=== PATIENT | female | born 1950 | race Hispanic/Latino ===

== ENCOUNTER 2016-10-18 19:16 | Inpatient (IN) | payer MEDICARE ==
[2016-10-18 19:59] VITALS: BMI 40.8
[2016-10-18] MEDS ORDERED: Albuterol-Ipratrop 3 mg / 0.5 (3 ml) UD IH STA (20:25)
--- NOTE | 2016-10-18 20:51 | ED PDOC ---
Arrival/HPI - General Historian: Patient <Yifan Shepherd - Last Filed: 10/18/16 22:30> <Patric Galeas - Last Filed: 10/18/16 23:29> - General Chief Complaint: Shortness Of Breath Time Seen by Provider: 10/18/16 19:49 - History of Present Illness Narrative History of Present Illness (Text): 10/18/16 20:52 This is a 65 year old female with a PMH notable for Afib, COPD, CHF, DM, CAD s/ p CABG, [place], HTN, HLD, and Anxiety presenting to the ED for acute worsening of chronic shortness of breath. The patient states that she has become more short of breath over the past month. The patient states that she cannot preform her ADLs without becoming short of breath. The patient notes that she has become progressively less active recently. The patiet also states that she has been taking nitroglycerine daily for the past week for her shortness of breath and chest heaviness. The patients reports her chest heaviness as intermittent, but relieved with nitro. The patient has a known history of CAD and is s/p CABG. Recent cardiac catheterization showes occlusion of her transplanted vessels and impaired EF. The patient also has a history of A-Fib. She did not take her evening dose of coumadin today. The patient denies fever, chills, headahce, chest pain, palpitations, cough, sputum production, abdominal pain, N/V/D/C, changes in bowel/bladder, and extremity paresthesias. PMHx: Afib COPD CHF DM CAD s/p CABG [place] HTN HLD Anxiety Surg: CABG (6yes ago) Allergies: Codeine Fam Hx: unable to obtain Soc Hx: history of tobacco use; unknown etoh/drug history PMD: Dr. Flores / Dr. Yee Cardio: Dr. Harper / Dr. Santana Pulm: Dr. Valle (Yifan Shepherd) Past Medical History - Provider Review Nursing Documentation Reviewed: Yes - Travel History Have you recently traveled outside [place] w/in the past 3 mons?: No - Infectious Disease Hx of Infectious Diseases: None - Tetanus Immunization Tetanus Immunization: Up to Date - Cardiac Hx Cardiac Disorders: Yes Hx Congestive Heart Failure: Yes Hx Hypertension: Yes - Pulmonary Hx Chronic Obstructive Pulmonary Disease (COPD): Yes - Neurological Hx Neurological Disorder: No Other/Comment: neuropathy ble numbness pins and needles - HEENT Hx HEENT Disorder: No - Renal Hx Renal Disorder: No - Endocrine/Metabolic Hx Diabetes Mellitus Type 2: Yes - Hematological/Oncological Hx Blood Disorders: No - Integumentary Hx Dermatological Disorder: No - Musculoskeletal/Rheumatological Hx Falls: No - Gastrointestinal Hx Gastrointestinal Disorders: No - Genitourinary/Gynecological Hx Genitourinary Disorders: No - Psychiatric Hx Depression: Yes Hx Emotional Abuse: No Hx Physical Abuse: No Hx Substance Use: No - Surgical History Hx Cardiac Catheterization: Yes Hx Open Heart Surgery: Yes Other/Comment: c section x1 - Anesthesia Hx Anesthesia: No - Suicidal Assessment Feels Threatened In Home Enviroment: No <Yifan Shepherd - Last Filed: 10/18/16 22:30> <Patric Galeas - Last Filed: 10/18/16 23:29> - Patient History Narrative Patient History: This is a 65 year old female with a PMH notable for Afib, COPD, CHF, DM, CAD s/ p CABG, [place], HTN, HLD, and Anxiety (iYfan Shepherd) Family/Social History - Physician Review Nursing Documentation Reviewed: Yes Family/Social History: No Known Family HX Smoking Status: Heavy Smoker > 10 Cigarettes Daily Hx Alcohol Use: No Hx Substance Use: No <Yifan Shepherd - Last Filed: 10/18/16 22:30> Allergies/Home Meds <Yifan Shepherd - Last Filed: 10/18/16 22:30> <Patric Galeas - Last Filed: 10/18/16 23:29> Allergies/Adverse Reactions: Allergies codeine Adverse Reaction (Verified 02/22/16 14:48) VOMITING Home Medications: Home Meds Medication Instructions Recorded Confirmed Aspirin 81 mg PO DAILY 12/07/13 02/22/16 Atorvastatin [Lipitor] 40 mg PO DIN 12/07/13 02/22/16 Carvedilol [Coreg] 25 mg PO BID 12/07/13 02/22/16 Fenofibric Acid (Choline) 135 mg PO DIN 12/07/13 02/22/16 [Trilipix] LORazepam [Ativan] 0.5 mg PO DAILY PRN 12/07/13 02/22/16 Metformin HCl [Metformin] 1,000 mg PO BID 12/07/13 02/22/16 Ascorbic Acid [Vitamin C] 500 mg PO DAILY 02/22/16 02/22/16 Budisemide 0 inh NEB BID 02/22/16 02/22/16 Cholecalciferol (Vitamin D3) 500 unit PO DAILY 02/22/16 02/22/16 [Vitamin D3] Furosemide [Lasix] 40 mg PO DAILY 02/22/16 02/22/16 Insulin Aspart, Recombinant 30 unit SC AC 02/22/16 02/22/16 [Novolog] Insulin Detemir [Levemir] 56 unit SC HS 02/22/16 02/22/16 Multivit-Min/FA/Lycopen/Lutein 1 each PO DAILY 02/22/16 02/22/16 [Centrum Silver Tablet] [place]-3/Dha/Epa/Fish Oil [Fish Oil] 4,000 gm PO BID 02/22/16 02/22/16 Potassium Chloride [Klor-Con M20] 20 meq PO DAILY 02/22/16 02/22/16 Proformist 0 inh NEB BID 02/22/16 02/22/16 Tiotropium Comfrey Inhaler 2 puff INH BID 02/22/16 02/22/16 [Spiriva Inhalation Handihaler Device] Tiotropium [Spiriva] 2 puff INH DAILY 02/22/16 02/22/16 Warfarin [Coumadin] 5 mg PO MWF 02/22/16 02/22/16 Warfarin [Coumadin] 7.5 mg PO TTS 02/22/16 02/22/16 Review of Systems - Physician Review All systems were reviewed & negative as marked: Yes - Review of Systems Constitutional: Fatigue. absent: Fevers Eyes: absent: Vision Changes, Photophobia ENT: absent: Hearing Changes, Tinnitus Respiratory: SOB. absent: Cough, Sputum, Wheezing Cardiovascular: absent: Chest Pain, Palpitations, Calf Pain, Orthopnea, Syncope Gastrointestinal: absent: Abdominal Pain, Stool Changes, Constipation, Diarrhea , Nausea, Vomiting Genitourinary Female: absent: Dysuria, Frequency Musculoskeletal: absent: Arthralgias, Back Pain Skin: absent: Rash, Pruritis Neurological: absent: Headache, Dizziness Endocrine: absent: Diaphoresis Hemo/Lymphatic: Easy Bleeding (patient on coumadin ). absent: Adenopathy Psychiatric: Anxiety. absent: Depression, Suicidal Ideation <Yifan Shepherd - Last Filed: 10/18/16 22:30> Physical Exam Temperature: Afebrile Blood Pressure: Hypertensive Pulse: Regular Respiratory Rate: Normal Appearance: Positive for: Well-Appearing, Ill-Appearing (chronically ill) Pain Distress: None Mental Status: Positive for: Alert and Oriented X 3 - Systems Exam Head: Present: Atraumatic, Normocephalic Pupils: Present: PERRL. No: Pinpoint Extroacular Muscles: Present: EOMI. No: Entrapment Conjunctiva: Present: Normal. No: Icteric Mouth: Present: Moist Mucous Membranes. No: Drooling Neck: Present: Normal Range of Motion. No: Lymphadenopathy Respiratory/Chest: Present: Clear to Auscultation. No: Good Air Exchange (poor air entry ), Respiratory Distress, Accessory Muscle Use Cardiovascular: Present: Normal S1, S2, Irregular Rhythm, Peripheal Pulses Present. No: Regular Rate and Rhythm, Murmurs Abdomen: Present: Normal Bowel Sounds. No: Tenderness, Distention, Peritoneal Signs, Rebound, Guarding Back: Present: Normal Inspection. No: CVA Tenderness, Midline Tenderness Upper Extremity: Present: Normal Inspection, Neurovascularly Intact. No: Cyanosis, Edema Lower Extremity: Present: Normal Inspection, Edema. No: Deformity Neurological: Present: GCS=15, CN II-XII Intact Skin: Present: Warm, Dry, Normal Color. No: Rashes Psychiatric: Present: Alert, Oriented x 3 <Stephanie Shepherds - Last Filed: 10/18/16 22:30> Vital Signs Temp Pulse Resp BP Pulse Ox 10/18/16 19:59 98.1 F 78 20 157/72 H 97 Medical Decision Making Re-evaluation Time: 22:30 Reassessment Condition: Re-examined - Lab Interpretations Interpretation: Abnormal lab values (supratherapeutic INR, elevated BNP) - RAD Interpretation Software Security Architect: ED Physician - EKG Interpretation Interpreted by ED Physician: Yes Type: 12 lead EKG Comparison: Com.w/previous EKG <Yifan Shepherd - Last Filed: 10/18/16 22:30> - Lab Interpretations I have reviewed the lab results: Yes - RAD Interpretation Software Security Architect: ED Physician - EKG Interpretation Interpreted by ED Physician: Yes Type: 12 lead EKG <Gudelia,Patric - Last Filed: 10/18/16 23:29> ED Course and Treatment: 10/18/16 21:13 Impression: This is a 65 year old female with a PMH notable for Afib, COPD, CHF, DM, CAD s/ p CABG, [place], HTN, HLD, and Anxiety presenting to the ED for acute worsening of chronic shortness of breath. The patient appears chronically ill and short of breath. The patient is sating well on 2L nasal cannula. Differential: [place] COPD Exacerbation CHF Exacerbation Plan: CXR EKG CBC, CMP, BNP, Cardiac ISO, TSH, Phos, Mag, PT, PTT Lasix 40mg IV Prior Visits: 02/23/16- Chest pain. MANUFACTURING ENGINEER MACHINING called, patient intubated for hypercarbic narcosis, management in ICU 12/07/13- CHF Progress Note: Patient seen and examined at the bedside the patient appears in no acute distress. The patient is prepared for admission having brought a suitcase of belongings. The patient has poor gas exchange likely 2/2 to chronic COPD. The patient will be given a dose of lasix 40mg IV since she did not take her dose this AM. The patient was also seen to be hypertensive 164/106. We will recheck the BP following the administration of Lasix. Lab and imaging studies pending. 10/18/16 22:30 Patient re-examined. No interval change from previous examination. Patient sating well on nasal cannula O2. Hospitalist team has accepted admission. Patient will be admitted to telemetry floor. (Yifan Shepherd) Impression: Pt seen and evaluated with medical records supervisor. Pt, whose past medical history includes atrial fibrillation, COPD, CHF, diabetes, CAD s/p CABG, [place], hypertension, hyperlipidemia, and anxiety, presented for shortness of breath and intermittent chest heaviness. Aware and agree with HPI, clinical findings, plan, and management. Plan: -- EKG -- Chest X-ray -- Labs, cardiac enzymes, digoxin level, TSH -- Duoneb -- Lasix -- Reassess and disposition 10/18/16 22:00 Case discussed with medical records supervisor strategy consultant, who is aware and verbalizes understanding. 10/18/16 22:[address] Rincon, who is aware and agrees with plan. Accepts pt in to hospital service. Pt will go to Telemetry observation for chest pain. Pt is no acute distress. Discussed results and hospital observation with pt, who is aware and verbalizes understanding. (Patric Galeas) - Lab Interpretations Lab Results: 10/18/16 21:20 10/18/16 21:20 Lab Results 10/18/16 21:20: WBC 7.5 D, RBC 4.31, Hgb 14.4, Hct 40.6, MCV 94.2, MCH 33.4, MCHC 35.5, RDW 13.3, Plt Count 177, MPV 9.5, Gran % 61.7, Lymph % (Auto) 27.2, Ripley % (Auto) 7.7 H, Eos % (Auto) 2.9, Baso % (Auto) 0.5, Gran # 4.61, Lymph # 2.0, Ripley # 0.6, Eos # 0.2, Baso # 0.04, PT 44.2 H*, INR 4.09 H*, APTT 38.0 H, Sodium 136, Potassium 4.0, Chloride 96 L, Carbon Dioxide 34 H, Anion Gap 10, BUN 30 H, Creatinine 0.9, Est GFR ( Amer) > 60, Est GFR (Non-Af Amer) > 60, Random Glucose 54 L, Calcium 9.6, Magnesium 2.2, Total Bilirubin 0.6, AST 27 , ALT 37, Alkaline Phosphatase 76, Lactate Dehydrogenase 527, Total Creatine Kinase 59, Troponin I < 0.01 D, NT-Pro-B Natriuret Pep 1610 H, Total Protein 6.6, Albumin 3.8, Globulin 2.8, Albumin/Globulin Ratio 1.4, TSH 3rd Generation 1.84, Digoxin 0.8 - RAD Interpretation Narrative RAD Interpretations (Text): 10/18/16 21:49 CXR shows chronic COPD changes. No acute pulmonary pathology (Yifan Shepherd) Radiology Orders: 10/18/16 20:25 CHEST PORTABLE [RAD] Stat - EKG Interpretation EKG Interpretation (Text): 10/18/16 20:49 A-fib, ST & T wave changes in lateral leads, septal infarct age undetermined Comparison- a-fib, inferolateral ischemia, old septal [place] (Yifan Shepherd) - Medication Orders Current Medication Orders: Discontinued Medications Albuterol/Ipratropium (Christianoneb 3 Mg/0.5 Mg (3 Ml) Ud) 3 ml IH STAT STA Stop: 10/18/16 20:26 Furosemide (Lasix) 40 mg IVP STAT STA Stop: 10/18/16 20:32 - PA / HUMAN RESOURCES EXECUTIVE ASSISTANT / Resident Statement / has reviewed & agrees with the documentation as recorded. / has examined the patient and agrees with the treatment plan. <Patric Galeas - Last Filed: 10/18/16 23:29> Disposition/Present on Arrival - Present on Arrival Any Indicators Present on Arrival: No History of DVT/PE: No History of Uncontrolled Diabetes: No Urinary Catheter: No History of Decub. Ulcer: No History Surgical Site Infection Following: None - Disposition Have Diagnosis and Disposition been Completed?: Yes Disposition Time: 19:00 Patient Plan: Admission <Yifan Shepherd - Last Filed: 10/18/16 22:30> <Patric Galeas - Last Filed: 10/18/16 23:29> - Disposition Diagnosis: Shortness of breath, COPD exacerbation Disposition: HOSPITALIZED Patient Problems: Current Active Problems Problem Status Diagnosed COPD exacerbation Acute Chest pain Acute Prophylactic measure Acute Shortness of breath Acute Condition: FAIR
[2016-10-18 21:35] LABS: ADD MANUAL DIFF? NO
[2016-10-18 21:41] LABS: BASO # 0.04 [, K/mm3] (0.0-2.0); BASO % 0.5 % (0.0-3.0); EOS # 0.2 (0.0-0.7); EOS % 2.9 % (1.5-5.0); GRAN # 4.61 (1.4-6.5); GRAN % 61.7 % (50.0-68.0); HEMATOCRIT 40.6 % (36.0-48.0); LYMPH % 27.2 % (22.0-35.0); MEAN CELL VOLUME 94.2 fL (80.0-105.0); MEAN CORPUSCULAR HEMOGLOBIN 33.4 pg (25.0-35.0); MEAN CORPUSCULAR HGB CONC 35.5 g/dl (31.0-37.0); MEAN PLATELET VOLUME 9.5 fl (7.0-11.0); MONO # 0.6 (0.1-0.6); MONO % 7.7 % (1.0-6.0); PLATELET COUNT 177 [, 10^3/uL] (120.0-450.0); RED CELL DISTRIBUTION WIDTH 13.3 % (11.5-14.5); WHITE BLOOD COUNT 7.5 [, 10^3/ul] (4.5-11.0)
[2016-10-18 21:57] LABS: ALB/GLOB RATIO 1.4 (1.1-1.8); ALKALINE PHOSPHATASE 76 U/L (38-133); ALT/SGPT 37 U/L (7-56); AST/SGOT 27 U/L (15-39); BILIRUBIN,TOTAL 0.6 mg/dL (0.2-1.3); BLOOD UREA NITROGEN 30 mg/dL (7-21); CALCIUM 9.6 mg/dL (8.4-10.5); CARBON DIOXIDE 34 mmol/L (21-33); CHLORIDE 96 mmol/L (98-107); GFR AFRICAN-AMERICAN > 60; GLUCOSE,RANDOM 54 mg/dL (70-110); MAGNESIUM 2.2 mg/dL (1.7-2.2); SODIUM 136 mmol/L (132-148); TOTAL PROTEIN 6.6 g/dL (5.8-8.3)
[2016-10-18 21:59] LABS: INR 4.09 (0.93-1.08)
[2016-10-18 22:11] LABS: TROPONIN I < 0.01 ng/mL
[2016-10-19] MEDS ORDERED: Albuterol-Ipratrop 3 mg / 0.5 (3 ml) UD IH PRN (00:39)
[2016-10-19] MEDS ORDERED: Dextrose 50% SYRINGE Inj (50 ml) IVP STA (00:47)
[2016-10-19] MEDS: Albuterol-Ipratrop 3 mg / 0.5 (3 ml) UD IH SCH ×6 (01:16→19:34)
--- NOTE | 2016-10-19 06:21 | CP.PCM.HP ---
<LazarusTushar craft - Last Filed: 10/19/16 06:55> History of Present Illness - History of Present Illness History of Present Illness: CC: Shortness of breath HPI: This is a 65 yo F with PMH of Afib, COPD, CHF, DM, CAD s/p CABG, [place], HTN, HLD, and Anxiety for acute worsening of shortness of breath. Per patient, she is chronically short of breath, but over the last month, has become more so, to the point that she cannot perform ADLs without becoming short of breath. She also reports recent concurrent chest tightness/heaviness with the shortness of breath beginning 3-4 days prior. The shortness of breath is only mildly improved with her normal COPD regimen, but both the chest tightness and shortness of breath improved (but did not resolve) with use of Nitro. She had a recent cardiac cath that was notable for occlusion of her transplanted vessels and impaired EF. Denies fever/chills, headache, pain with breathing, chest pain, palpitations, dry/productive cough, abdominal pain, nausea/emesis, diarrhea/constipation, hematuria/dysuria, or focal weakness. PMH: as above PSH: CABG (6 yrs prior) FHx: Cardiac disease (Mother) SHx: active tobacco use (currently 4-6 cigarettes, for 4 years; previously 1- 2ppd for >20 years), denies alcohol/illicits PMD: Dr. Yee Present on Admission - Present on Admission Any Indicators Present on Admission: No History of DVT/PE: No History of Uncontrolled Diabetes: No Urinary Catheter: No Review of Systems - Constitutional Constitutional: Fatigue. absent: Chills, Fever - EENT Eyes: absent: Blurred Vision, Change in Vision, Loss of Vision Ears: absent: Dizziness Nose/Mouth/Throat: absent: Sore Throat, Neck Pain - Cardiovascular Cardiovascular: Dyspnea, Dyspnea on Exertion (baseline short of breath, worse with exertion), Other (chest tightness/heaviness (adamant it isn't chest pain)) . absent: Chest Pain, Pain Radiating to Arm/Neck/Jaw, Lightheadedness, Palpitations, Syncope - Respiratory Respiratory: Dyspnea, Dyspnea on Exertion (baseline short of breath, worse with exertion). absent: Cough, Hemoptysis, Wheezing, Pain on Inspiration, Excessive Mucous Production - Gastrointestinal Gastrointestinal: absent: Abdominal Pain, Constipation, Diarrhea, Nausea, Vomiting - Genitourinary Genitourinary: absent: Difficulty Urinating, Dysuria, Flank Pain, Hematuria - Musculoskeletal Musculoskeletal: absent: Back Pain, Muscle Weakness, Numbness, Radiating Pain into Limb - Integumentary Integumentary: absent: Pruritus, Rash - Neurological Neurological: absent: Dizziness, Numbness, Focal Weakness, Headaches, Loss of Vision, Syncope, Weakness, Other Visual Disturbances - Psychiatric Psychiatric: Anxiety. absent: Depression - Endocrine Endocrine: absent: Fatigue, Palpitations - Hematologic/Lymphatic Hematologic: Easy Bleeding (on coumadin) Past Patient History - Infectious Disease Hx of Infectious Diseases: None - Tetanus Immunizations Tetanus Immunization: Up to Date - Past Social History Smoking Status: Light Smoker < 10 Cigarettes Daily - CARDIAC Hx Cardiac Disorders: Yes Hx Angina: No Hx Cardia Arrhythmia: Yes (A Fib) Hx Circulatory Problems: No Hx Congestive Heart Failure: Yes Hx Heart Murmur: No Hx Heart Transplant: No Hx Hypercholesterolemia: Yes Hx Hypertension: Yes Hx Internal Defibrillator: No Hx Mitral Valve Prolapse: No Hx Pacemaker: No Hx Peripheral Edema: Yes Hx Peripheral Vascular Disease: No - PULMONARY Hx Respiratory Disorders: Yes (Pleurisy) Hx Asthma: No Hx Bronchitis: No Hx Chronic Obstructive Pulmonary Disease (COPD): Yes Hx Emphysema: No Hx Pneumonia: Yes Hx Respiratory Aspiration: No Hx Respiratory Tract Infection: No Hx Sleep Apnea: No Hx Tuberculosis: No - NEUROLOGICAL Hx Neurological Disorder: Yes (sciatica,neuropathey both feet) Hx Alzheimer's Disease: No HX Cerebrovascular Accident: No Hx Dementia: No Hx Dizziness: No Hx Meningitis: No Hx Migraine: No Hx Parkinson's Disease: No Hx Seizures: No Hx Transient Ischemic Attacks (TIA): No - HEENT Hx HEENT Problems: No Hx Blind: No Hx Cataracts: No Hx Deafness: No Hx Difficulty Chewing: No Hx Epistaxis: No Hx Glaucoma: No Hx Macular Degeneration: No - RENAL Hx Chronic Kidney Disease: No Hx Dialysis: No Hx Kidney Stones: No Hx Neurogenic Bladder: No Hx Pyelonephritis: No Hx Renal (Kidney) Cancer: No Hx Renal Failure: No - ENDOCRINE/METABOLIC Hx Endocrine Disorders: Yes Hx Adrenal Cancer: No Hx Diabetes Insipidus: No Hx Diabetes Mellitus Type 1: No Hx Diabetes Mellitus Type 2: Yes Hx Hyperthyroidism: No Hx Hypothyroidism: No Hx Systemic Lupus Erythematosus: No - HEMATOLOGICAL/ONCOLOGICAL Hx Blood Disorders: No Hx AIDS: No Hx Anemia: No Hx Cancer: No Hx Chemotherapy: No Hx Cirrhosis: No Hx Hemophilia: No Hx Hepatitis A: No Hx Hepatitis B: No Hx Hepatitis C: No Hx Human Immunodeficiency Virus (HIV): No Hx Metastesis: No Hx Shingles: No Hx Sickle Cell Disease: No Hx Unexplained Bleeding: No - INTEGUMENTARY Hx Dermatological Problems: No Hx Basil Cell: No Hx Eczema: No Hx Melanoma: No Hx Psoriasis: No Hx Squamous Cell: No - MUSCULOSKELETAL/RHEUMATOLOGICAL Hx Musculoskeletal Disorders: Yes (herniated disc) Hx Arthritis: No Hx Back Pain: No Hx Degenerative Joint Disease: No Hx Falls: No Hx Fractures: No Hx Gout: No Hx Herniated Disk: No Hx Myasthenia Gravis: No Hx Osteoarthritis: No Hx Osteomyelitis: No Hx Rhabdomyolysis: No Hx Spinal Stenosis: No Hx Unsteady Gait: No - GASTROINTESTINAL Hx Gastrointestinal Disorders: No Hx Colostomy: No Hx Crohn's Disease: No Hx Diverticulitis: No Hx Gall Bladder Disease: No Hx Gastroesophageal Reflux: No Hx Ileostomy: No Hx Liver Failure: No Hx Pancreatitis: No HX Swallowing Problems: No Hx Ulcer: No - GENITOURINARY/GYNECOLOGICAL Hx Genitourinary Disorders: No Hx Hematuria: No Hx Incontinence: No Hx Sexually Transmitted Disorders: No Hx Urinary Tract Infection: No - PSYCHIATRIC Hx Psychophysiologic Disorder: Yes Hx Anxiety: Yes Hx Bipolar Disorder: No Hx Depression: Yes Hx Emotional Abuse: No Hx Hallucinations: No Hx Panic Symptoms: Yes Hx Paranoia: No Hx Post Traumatic Stress Disorder: No Hx Psychosis: No Hx Physical Abuse: No Hx Schizophrenia: No Hx Sexual Abuse: No Hx Substance Use: No - SURGICAL HISTORY Hx Surgeries: Yes Hx Amputation: No Hx Appendectomy: No Hx Cardiac Catheterization: Yes Hx Cholecystectomy: No Hx Coronary Stent: Yes Hx Gastric Bypass Surgery: No Hx Hysterectomy: No Hx Joint Replacement: No Hx Kidney Transplant: No Hx Liver Transplant: No Hx Mastectomy: No Hx Musculoskeletal Surgery: No Hx Open Heart Surgery: Yes (CABG) Hx Orthopedic Surgery: No Hx Splenectomy: No Hx Valve Replacement: No - ANESTHESIA Hx Anesthesia: No Meds Allergies/Adverse Reactions: Allergies Allergy/AdvReac Type Severity Reaction Status Date / Time codeine AdvReac VOMITING Verified 02/22/16 14:48 Physical Exam - Constitutional Appears: Well, Non-toxic, No Acute Distress - Head Exam Head Exam: ATRAUMATIC, NORMAL INSPECTION, NORMOCEPHALIC - Eye Exam Eye Exam: EOMI, Normal appearance. absent: Conjunctival injection, Scleral icterus Pupil Exam: absent: Irregular, Unequal - ENT Exam ENT Exam: Mucous Membranes Moist - Respiratory Exam Respiratory Exam: Decreased Breath Sounds (in all ricks), NORMAL BREATHING PATTERN. absent: Accessory Muscle Use, Chest Wall Tenderness, Clear to Auscultation Bilateral, Rales, Rhonchi, Wheezes - Cardiovascular Exam Cardiovascular Exam: REGULAR RHYTHM, RRR, +S1, +S2. absent: Bradycardia, Tachycardia, Irregular Rhythm, +S4 - GI/Abdominal Exam GI & Abdominal Exam: Normal Bowel Sounds, Soft. absent: Diminished Bowel Sounds , Distended, Firm, Hyperactive Bowel Sounds, Hypoactive Bowel Sounds, Rigid, Tenderness Additional comments: obese, but not distended - Rectal Exam Rectal Exam: Deferred - Extremities Exam Extremities exam: Positive for: pedal edema (+1-2 pitting edema bilaterally). Negative for: calf tenderness, normal capillary refill, tenderness, pedal pulses present (unable to palpate bilateral LE pulses) - Neurological Exam Neurological exam: Alert, Oriented x3 - Psychiatric Exam Psychiatric exam: Anxious, Normal Affect - Skin Skin Exam: Dry, Intact, Normal Color, Warm Results - Vital Signs Recent Vital Signs: Last Vital Signs Temp 98.3 F 10/19/16 04:55 Pulse 60 10/19/16 04:55 Resp 19 10/19/16 04:55 BP 120/53 L 10/19/16 04:55 Pulse Ox 97 10/19/16 01:30 - Labs Result Diagrams: 10/18/16 21:20 10/18/16 21:20 Assessment & Plan - Assessment and Plan (Free Text) Assessment: This is a 65 yo F with PMH of Afib, COPD, CHF, DM, CAD s/p CABG, [place], HTN, HLD, and Anxiety for acute worsening of shortness of breath. She is being admitted for COPD exacerbation vs CHF exacerbation. Plan: This is a 65 yo F with PMH of Afib, COPD, CHF, DM, CAD s/p CABG, [place], HTN, HLD, and Anxiety for acute worsening of shortness of breath. 1) Shortness of breath -COPD exacerbation vs CHF exacerbation vs ACS, unlikely PE -Supratherapeutic on Coumadin, INR > 4, so unlikely PE -Active smoker -Coreg 25mg PO BID -Will hold home Lasix in favor of IV Lasix, increased frequency to q12 -Nitro sublinquial PRN -ASA 81mg daily -Duonebs q4 all and q2 prn -trop x1 negative, trending q8 -Solumedrol 60mg IV q12 -Cardio consulted, appreciate any recs 2) AFib -continue coreg -holding home warfarin as supratherapeutic INR> 4 -no active bleed, so no need for Vit K/FFP 3) DM -Sliding scale Lispro-Low -Accuchecks ACHS 4) CAD s/p CABG -continue coreg, ASA -Cardio consulted, apprecaite all recs Dispo: Tele Obs, pending Cardio's input, Breathing tx and diuresis FEN: Heart-healthy consistent carb diet Access: Peripheral IV Consults: Cardio Ppx: Protonix for GI, Covered for DVT with supratherapeutic INR Patient seen, reviewed, discussed with attending, Dr. Rincon. - Date & Time Date: 10/19/16 Time: 06:58 Decision To Admit - Pt Status Changed To: Hospital Disposition Of: Observation - . Bed Request Type: Telemetry <Mckenzie MAURICE,Dmitriy - Last Filed: 10/25/16 01:22> Results - Vital Signs Recent Vital Signs: Last Vital Signs Temp 97.5 F L 10/21/16 12:00 Pulse 77 10/21/16 12:00 Resp 18 10/21/16 12:00 BP 140/85 10/21/16 12:00 Pulse Ox 96 10/20/16 06:00 - Labs Result Diagrams: 10/21/16 07:35 10/21/16 06:15 Attending/Attestation - Attestation I have personally seen and examined this patient.: Yes I have fully participated in the care of the patient.: Yes I have reviewed all pertinent clinical information: Yes Notes (Text): 10/25/16 01:19 -I agree with the above H&P completed by the resident physician. Briefly, the patient is a 65 year old woman with a history of paroxysmal A-fib, COPD, CHF, DM, CAD (s/p CABG), HTN, HLD, and anxiety disorder, admitted to tele for SOB likely due to to acute COPD exacerbation and/or acute CHF exacerbation. Breathing treatments, diuresis and supplemental O2 used for treatment. Hold home Warfarin dose given supratherapeutic INR on ED labs.
[2016-10-19 06:33] VITALS: O2SAT 96
[2016-10-19 07:12] LABS: ALB/GLOB RATIO 1.3 (1.1-1.8); ALKALINE PHOSPHATASE 85 U/L (38-133); ALT/SGPT 37 U/L (7-56); AST/SGOT 30 U/L (15-39); BILIRUBIN,TOTAL 0.8 mg/dL (0.2-1.3); BLOOD UREA NITROGEN 28 mg/dL (7-21); CALCIUM 9.6 mg/dL (8.4-10.5); CARBON DIOXIDE 32 mmol/L (21-33); CHLORIDE 97 mmol/L (98-107); CHOLESTEROL 208 mg/dL (130-200); GFR AFRICAN-AMERICAN > 60; GLUCOSE,RANDOM 156 mg/dL (70-110); MAGNESIUM 2.1 mg/dL (1.7-2.2); PHOSPHOROUS 4.2 mg/dL (2.5-4.5); POTASSIUM 4.7 mmol/L (3.6-5.0); SODIUM 139 mmol/L (132-148); TOTAL PROTEIN 7.6 g/dL (5.8-8.3)
[2016-10-19 07:18] LABS: INR 2.97 (0.93-1.08)
[2016-10-19 07:33] LABS: TROPONIN I < 0.01 ng/mL
[2016-10-19] MEDS: Insulin Lispro (humaLOG) LOW Coverage SC SCH ×4 (08:10→23:07)
[2016-10-19] MEDS: Pantoprazole 40 mg EC Tab PO SCH ×2 (08:11→08:12)
--- NOTE | 2016-10-19 08:41 | RAD ---
HISTORY: SOB COMPARISON: Comparison is made to the previous study dated 02/24/2016 FINDINGS: LUNGS: Mild pulmonary vascular congestion. PLEURA: No significant pleural effusion identified, no pneumothorax apparent. CARDIOVASCULAR: Cardiomegaly. OSSEOUS STRUCTURES: No significant abnormalities. VISUALIZED UPPER ABDOMEN: Normal. OTHER FINDINGS: None. IMPRESSION: And mild pulmonary vascular congestion.
[2016-10-19] MEDS: diltiaZEM 120 mg/24 Hours CD Cap PO SCH (09:50)
[2016-10-19] MEDS: MethylPREDNISolone 40 mg Vial IV SCH ×2 (09:51→23:07)
--- NOTE | 2016-10-19 11:24 | CON ---
DATE: 10/19/2016 REASON FOR CONSULTATION: Chronic obstructive pulmonary disease. REFERRING PHYSICIAN: Dr. Johnson. HISTORY OF PRESENT ILLNESS: The patient is a 65-year-old female with past medical history significant for chronic obstructive pulmonary disease, positive extensive smoking history -- still smokes, atrial fibrillation, congestive heart failure, diabetes mellitus, coronary artery disease, status post open heart surgery, hypertension, hyperlipidemia, anxiety, who presents to [facility] with worsening dyspnea on exertion and cough over the past week. The patient is not short of breath at rest. She also denies significant sputum production. The patient denies chest pain, coughing up of blood or chest pain -- made worse with deep respirations. However, the patient does state to chest "pressure" over the past 4-5 days. There is no history of temperatures, chills or infectious exposure. There is no history of night sweats, weight loss or appetite change prior to the above events. No history of leg or calf pains. No history of syncope or diaphoresis. No history of recent travel or trauma. REVIEW OF SYSTEMS: No history of nausea, vomiting or diarrhea. No acute urinary symptoms. No new neurological or musculoskeletal complaints. Rest of review of systems is negative. ALLERGIES: CODEINE. SOCIAL HISTORY: Positive for extensive tobacco usage--still smokes. No alcohol. FAMILY HISTORY: No inheritable diseases. HOME MEDICATIONS: Include prednisone, Cardizem, Coumadin, Spiriva, metformin, lisinopril, Ativan, Imdur, Levemir, NovoLog, Lasix, Coreg, and aspirin. PHYSICAL EXAMINATION: GENERAL: The patient is not short of breath at rest. She is not using accessory muscles for breathing. VITAL SIGNS: Temperature is 98.1, pulse 70, respirations 19, blood pressure 124 /63. Oxygen saturation on nasal cannula is 96-100%. HEENT: Normocephalic, atraumatic. NECK: No JVD. CARDIOVASCULAR: Systolic ejection murmur at the lower left sternal border. No S3 gallop. LUNGS: Decreased breath sounds at the bases. Minimal rhonchi. No wheezing. EXTREMITIES: Positive for mild edema. No cyanosis, no clubbing. Calves are nontender to palpation. GASTROINTESTINAL: Abdomen is soft, nontender, nondistended. Bowel sounds are positive. SKIN: No acute rash. NEUROLOGIC: Limited at the present time. PERTINENT LABORATORY DATA: Chest x-ray was done and reviewed. There is no significant change from the previous film. There may be some very mild pulmonary vascular congestive changes, also seen on previous films. Complete CBC: White count 7.5, hemoglobin 14.4, hematocrit 40.6, platelets of 177. INR 2.97. Complete metabolic profile: Chloride 97, BUN 28, glucose 156. Rest of the metabolic profile is within normal limits. B-type natriuretic peptide done yesterday -- 1610. IMPRESSION: 1. Acute bronchitis. 2. Chronic obstructive pulmonary disease. 3. Mild bronchospasm. 4. Atrial fibrillation. 5. Coronary artery disease. 6. Diabetes mellitus. PLAN: The patient presents to [facility] with a 1-week history of worsening pulmonary symptoms. In addition, the patient also states to chest "pressure" over the past 4-5 days. I did review the last x-ray as above. The x -ray reveals very mild increase in pulmonary vascular congestive changes -- not changed from the previous films. On physical exam, there is minimal bronchospasm noted. In addition, there is no significant alveolar arterial gradient. I will continue with the current nebulizer treatments and low-dose intravenous steroids for now. Cardiology evaluation with Dr. Harper has been ordered. The patient has been placed on Lasix therapy. The patient does feel better this morning -- compared to previous days. Additional pulmonary intervention will be based on the clinical status of the patient. I did discuss the above with Dr. Johnson. Thank you very much for this pulmonary consultation. Natan Valle MD cc: [id number] TT: 10/19/2016 11:23:24 Confirmation # [id number] Dictation # [id number] ced ANAYA
--- NOTE | 2016-10-19 12:27 | CON ---
DATE: 10/19/2016 SERVICE: Cardiology. REASON FOR CONSULTATION: Shortness of breath, chest pain, coronary artery disease, status post CABG. BRIEF CLINICAL HISTORY: This is a 65-year-old female with morbid obesity, COPD, coronary artery dise ase status post coronary artery bypass surgery 10/18/2010, history of paroxysmal atrial fibrillation, history of last catheterization on 03/18, surgical treatment recommended, patient opted for medical tr eatment, who came in with a complaint of shortness of breath, worsening and chest pain. PAST HISTORY: Significant for coronary artery disease status post coronary artery bypass surgery on 10/18/2010 at [facility], COPD, diabetes, hypertension, hyperlipidemia, history of par oxysmal atrial fibrillation. Had a ANDRE cardioversion before at [facility], failed cardioversion. The tiara ent was on amiodarone, but stopped because of toxicity of COPD. PREVIOUS CARDIAC WORKUP: As follows: The patient had open heart surgery at [facility]. Last echo at [facility] . The patient had last cardiac catheterization 02/25/2016 at [facility] that revealed pat ient's dominant system is right dominant system. Left main artery is large, 30% stenosis, distal bif urcating LAD and circumflex. LAD artery is a moderate caliber vessel, 90% stenosis in the proximal s egment, is occluded after septal torch heater 1. Circumflex is a large caliber vessel, stenosis 60% in the mid segment. The ramus intermedius is a small-sized vessel with diffuse calcification, 100% occ luded proximally. Right coronary artery is a medium-sized vessel with diffuse calcification noted th roughout this vessel with significant stenosis 100% in the proximal segment. Left anterior descendin g artery is patent, but after anastomosis, LAD occluded and feels retrograde to LAD, diagonal septal torch heater. SVG to OM1 and OM2 could not be cannulated, not seen on aortogram, presumably closed. E jection fraction LV 35% to 40%, EDP was in the range of 18. Impression, [place] triple vessel disease presumably occluded SVG to OM1 and OM2, cannot be cannulated on the aortogram. RITTER is patent, but LAD after the anastomosis ____ is occluded, feels retrograde to diagonal 1 septal torch heater and mid to proximal LAD. Circumflex gives collateral to RCA, ejection fraction 35% to 40%, EDP was in the ra nge of 18. Open heart surgery recommended. Smoking cessation and weight reduction in addition to co ntinued Ranexa and followup echo, followup LV function with MUGA to assess the need of AICD. Interim , continue digoxin, diuretic. OSCAR Coreg was recommended as well as Coumadin for atrial fibrillation. Last echo patient had 02/29/2016 that showed ejection fraction 35%, moderate tricuspid regurg, RV s ystolic pressure 39, IVC dilated, no pericardial effusion. The patient at that time was is in normal sinus. REVIEW OF SYSTEMS: As per HPI. CURRENT MEDICATIONS: Currently, patient is taking prednisone, Cardizem, Coumadin, multivitamin, kun nopril, Coreg, aspirin. REVIEW OF SYSTEMS: As per HPI. PHYSICAL EXAMINATION: As follows: VITAL SIGNS: Temperature afebrile, heart rate 103, blood pressure 142/75. HEENT: PERRLA. Extraocular muscles intact. NECK: Supple. No carotid bruits. No thyromegaly. CHEST: Clear to auscultation. HEART: S1, S2 regular. ABDOMEN: Soft. EXTREMITIES: Clubbing and cyanosis negative. BLOOD WORKUP: As follows: WBC 7.5, hemoglobin 14.4, hematocrit 40.6, platelet count 177. Chemistry shows sodium 136, potassium 4.7, chloride 97, carbon dioxide 32, anion gap of 15, BUN 28, creatinine 1. Troponin 0.01. IMPRESSION: No evidence of acute myocardial infarction. Troponins x 2 negative. Decompensated jr estive heart failure, [id number] chronic obstructive pulmonary disease exacerbation, diabetes, hypertension, hyperlipidemia, morbid obesity, active tobacco abuse. RECOMMENDATION: Optimize medical treatment. Start digoxin, diuretic. Continue to keep off amiodaro ne. The patient is in back and forth atrial fibrillation, needs long-term anticoagulation as well as patient has ____ COPD, so increase more toxicity. Beta rich, digoxin, diuretics. Will consider Ranexa as mentioned in my cath report as the outpatient. Try to optimize medical treatment. Review the films. The patient is not willing for bypass surgery. We will see the other options for the cat heter-based treatment. The patient wants to know whether there is an option for catheter-based treat ment, w will review the films. Interim, continue aggressive medical treatment and also give the Love nox. Also get echo to assess LV function. We will follow with you. Thank you, Dr. Kelly, for providing us the opportunity in taking care of the patient. Je Santana MD cc: [id number] TT: 10/19/2016 12:27:18 Confirmation # [id number] Dictation # [id number] sn
--- NOTE | 2016-10-19 15:19 | CARD ---
APPROVED REPORT EKG Measurement Heart [id number] <Conclusion> Atrial fibrillation Low voltage QRS ST & T wave abnormality, consider lateral ischemia or digitalis effect Abnormal ECG
--- NOTE | 2016-10-19 15:38 | CARD ---
APPROVED REPORT EKG Measurement Heart [id number] <Conclusion> Atrial fibrillation Low voltage QRS Septal infarct, age undetermined Abnormal ECG
--- NOTE | 2016-10-19 15:44 | CARD ---
APPROVED REPORT EKG Measurement Heart [id number] <Conclusion> Atrial fibrillation Low voltage QRS Septal infarct, age undetermined ST & T wave abnormality, consider lateral ischemia or digitalis effect Abnormal ECG
[2016-10-19] MEDS ORDERED: FENOFIBRIC ACID 135 MG PO SCH (17:00)
[2016-10-19] MEDS: FENOFIBRIC ACID 135 MG PO SCH (17:17)
[2016-10-19] MEDS: Digoxin 125 mcg (0.125 mg) Tab PO SCH (17:21)
[2016-10-19 17:34] LABS: TROPONIN I < 0.01 ng/mL
--- NOTE | 2016-10-19 18:52 | CARD ---
APPROVED REPORT EXAM: Two-dimensional and M-mode echocardiogram with Doppler and color Doppler. INDICATION Chest Pain 2D DIMENSIONS Left Atrium (2D)4.3 (1.6-4.0cm)IVSd1.1 (0.7-1.1cm) LVDd4.6 (3.9-5.9cm)PWd1.3 (0.7-1.1cm) LVDs3.7 (2.5-4.0cm)FS (%) 19.9 % LVEF (%)40.0 (>50%) M-Mode DIMENSIONS Aortic Root2.80 (2.2-3.7cm)Aortic Cusp Exc.1.70 (1.5-2.0cm) Aortic Valve AoV Peak Jpdocrdt141.0cm/Krysten Peak GR.11mmHg Mitral Valve E/A ratio0.0 TDI E/Lateral E'0.0E/Medial E'0.0 Tricuspid Valve TR Peak [id number] [id number] Peak Gr.17mmHg [id number] LEFT VENTRICLE The left ventricle is normal size. There is mild concentric left ventricular hypertrophy. Proximal septal thickening is noted. The systolic function is mildly impaired.EF-45-50% There is mild to moderate hypokinesis in the apical anterior wall. A fib No left ventricle thrombus noted on this study. There is no ventricular septal defect visualized. There is no left ventricular aneurysm. There is no mass noted in the left ventricle. RIGHT VENTRICLE The right ventricle is normal size. There is normal right ventricular wall thickness. The right ventricular systolic function is normal. ATRIA The left atrium is mildly dilated. The right atrium is mildly dilated. The interatrial septum is intact with no evidence for an atrial septal defect. AORTIC VALVE The aortic valve is thickened but opens well. The aortic valve is mildly sclerotic. There is trace aortic regurgitation. There is no aortic valvular stenosis. There is no aortic valvular vegetation. MITRAL VALVE The mitral valve is thickened but opens well. Mitral annular calcification is mild. Mitral regurgitation is trace to mild. There is no mitral valve stenosis. There is no evidence of mitral valve prolapse. TRICUSPID VALVE The tricuspid valve leaflets are thickened , but open well. There is trace to mild tricuspid regurgitation.RVSP-27 mmof hg. There is no tricuspid valve stenosis. There is no tricuspid valve prolapse or vegetation. PULMONIC VALVE The pulmonic valve is mildly thickened. There is trace pulmonic valvular regurgitation. GREAT VESSELS The aortic root is normal in size. The ascending aorta is normal in size. The pulmonary artery is normal. The IVC is dilated. PERICARDIAL EFFUSION There is no pleural effusion. There is no pericardial effusion. <Conclusion> The left ventricle is normal size. There is mild concentric left ventricular hypertrophy. Proximal septal thickening is noted. The systolic function is mildly impaired.EF-45-50% There is mild to moderate hypokinesis in the apical anterior wall. A fib There is trace aortic regurgitation. Mitral regurgitation is trace to mild. There is trace to mild tricuspid regurgitation.RVSP-27 mmof hg. There is no pericardial effusion. The IVC is dilated.
[2016-10-19] MEDS ORDERED: Insulin Detemir 100 units/ml Vial (Levemir) SC SCH (22:00)
[2016-10-20] MEDS: Albuterol-Ipratrop 3 mg / 0.5 (3 ml) UD IH SCH ×4 (01:37→20:01)
[2016-10-20 06:52] LABS: ADD MANUAL DIFF? NO
[2016-10-20 07:10] LABS: BASO # 0.01 [, K/mm3] (0.0-2.0); BASO % 0.1 % (0.0-3.0); GRAN % 87.6 % (50.0-68.0); HEMATOCRIT 41.8 % (36.0-48.0); LYMPH # 0.7 (1.2-3.4); LYMPH % 7.7 % (22.0-35.0); MEAN CELL VOLUME 94.4 fL (80.0-105.0); MEAN CORPUSCULAR HEMOGLOBIN 32.7 pg (25.0-35.0); MEAN CORPUSCULAR HGB CONC 34.7 g/dl (31.0-37.0); MEAN PLATELET VOLUME 10.1 fl (7.0-11.0); MONO # 0.4 (0.1-0.6); MONO % 4.6 % (1.0-6.0); PLATELET COUNT 183 [, 10^3/uL] (120.0-450.0); RED CELL DISTRIBUTION WIDTH 13.2 % (11.5-14.5); WHITE BLOOD COUNT 8.6 [, 10^3/ul] (4.5-11.0)
[2016-10-20 07:16] LABS: INR 1.99 (0.93-1.08)
[2016-10-20 07:45] LABS: TROPONIN I < 0.01 ng/mL
[2016-10-20 07:46] LABS: ALB/GLOB RATIO 1.4 (1.1-1.8); ALKALINE PHOSPHATASE 74 U/L (38-133); ALT/SGPT 30 U/L (7-56); AST/SGOT 36 U/L (15-39); BILIRUBIN,TOTAL 0.7 mg/dL (0.2-1.3); BLOOD UREA NITROGEN 42 mg/dL (7-21); CALCIUM 9.2 mg/dL (8.4-10.5); CARBON DIOXIDE 28 mmol/L (21-33); CHLORIDE 93 mmol/L (98-107); GFR AFRICAN-AMERICAN > 60; MAGNESIUM 2.1 mg/dL (1.7-2.2); PHOSPHOROUS 4.4 mg/dL (2.5-4.5); POTASSIUM 4.4 mmol/L (3.6-5.0); SODIUM 136 mmol/L (132-148); TOTAL PROTEIN 7.4 g/dL (5.8-8.3)
[2016-10-20] MEDS: Insulin Lispro (humaLOG) LOW Coverage SC SCH ×4 (08:24→22:41)
[2016-10-20] MEDS: Pantoprazole 40 mg EC Tab PO SCH (08:26)
[2016-10-20 09:21] LABS: GLUCOSE,RANDOM 345 mg/dL (70-110)
--- NOTE | 2016-10-20 09:47 | PN ---
DATE: 10/20/2016 SUBJECTIVE: The patient appears comfortable this morning. She is not short of breath at rest. PHYSICAL EXAMINATION: VITAL SIGNS: Temperature is 97.9, pulse 88, respirations 18, blood pressure 121 /58. Oxygen saturation on nasal cannula is 96%. HEENT: Normocephalic, atraumatic. No JVD. CARDIOVASCULAR: Systolic ejection murmur at the lower left sternal border. No S3 gallop. LUNGS: Improved breath sounds at the bases. Minimal/less rhonchi. No wheezing. EXTREMITIES: Positive for edema. No cyanosis, no clubbing. Calves are nontender to palpation. GASTROINTESTINAL: Abdomen is soft, nontender, nondistended. Bowel sounds are positive. SKIN: No acute rash. NEUROLOGIC: Limited at the present time. IMPRESSION: 1. Acute bronchitis. 2. Chronic obstructive pulmonary disease. 3. Mild bronchospasm. 4. Atrial fibrillation. 5. Coronary artery disease. 6. Diabetes mellitus. PLAN: The patient appears comfortable this morning. She is not short of breath at rest. She has no chest discomfort this morning. She states she is feeling much better overall. On physical exam, there is certainly less bronchospasm noted. In addition, there is no significant alveolar-arterial gradient. I will continue with the current nebulizer treatments and low-dose intravenous steroids for now. I would continue with the cardiology evaluation as per Dr. Santana. His input is noted. Echocardiogram was done yesterday. The right ventricular systolic pressure is only 27 mmHg. Clinical status of the patient is certainly improved -- compared to the initial presentation. However , again, the overall status/prognosis of this chronically ill patient remains guarded. I will discuss the above with the attending physician. Natan Valle MD cc: [id number] TT: 10/20/2016 09:46:33 Confirmation # [id number] Dictation # [id number] en MTDD
--- NOTE | 2016-10-20 10:36 | PN ---
DATE: 10/20/2016 REASON FOR CONSULTATION: Shortness of breath, chest pain, coronary artery disease, status post coron daiana artery bypass graft. BRIEF CLINICAL HISTORY: This is a 65-year-old obese female with a past medical history of COPD, alex nary artery disease, status post coronary artery bypass surgery 10/18/2010 at [facility] by , history of paroxysmal atrial fibrillation, history of catheterization on 02/24 that shows occluded graft except patent RITTER, re-CABG suggested, but patient does not want redo surgery. History of paroxysmal atrial fibrillation, history of failed ANDRE cardio[place] [facility] T he patient was on amiodarone, but stopped because of toxicity of COPD. PHYSICAL EXAMINATION: VITAL SIGNS: Temperature afebrile, heart rate 78, blood pressure 129/61. HEENT: PERRLA. Extraocular muscles intact. NECK: Supple. No carotid bruits. No thyromegaly. CHEST: Clear to auscultation. HEART: S1, S2 regular. ABDOMEN: Soft. EXTREMITIES: Clubbing, cyanosis negative. WBC 8.6, hemoglobin 14.5, hematocrit 41.8, platelet count 183. Chemistries pending today. Troponin 0.01, negative. IMPRESSION: No evidence of acute myocardial infarction, no evidence of acute coronary syndrome, hist ory of coronary artery disease, coronary artery bypass graft at [facility] by on 10/18/2010, history of cardiac catheterization repeat 02/25/2016 at [facility] , occluded graft, only patent left internal mammary artery, distal left anterior descending after the left internal mammary artery is totally occluded, redo coronary artery bypass graft was suggested, b ut patient does not want to go for surgery, graft obtuse marginal 1, obtuse marginal 2 occluded, ejec tion fraction 35%-40%, end diastolic pressure was in the range of 18, who admitted yesterday with jose rtness of breath, chest pain, acute exacerbation of chronic obstructive pulmonary disease as well as decompensated congestive heart failure. So far, no evidence of acute myocardial infarction, troponin remains negative. Today's lab is pending. Admitting BNP was elevated. The patient started on IV L asix, aspirin and Cardizem. The patient is taking carvedilol, also on Coumadin. INR today is 1.99, was started yesterday 5 mg again. We will continue diuretics. The patient had echocardiography done yesterday that shows mildly decreased left ventricular function, ejection fraction 45%-50%, mild to moderate hypokinesis of wall, trace to mild mitral regurgitation, trace to mild tricuspid regur gitation, right ventricular systolic pressure 27. RECOMMENDATION: Continue rehab. Continue diuretics. Continue anticoagulation for atrial fibrillati on. Possible discharge in a day or 2. We will follow with you. Thank you, Dr. Johnson, for providing us the opportunity in taking care of the patient. Je Santana MD cc: [id number] TT: 10/20/2016 10:35:47 Confirmation # [id number] Dictation # [id number] en
[2016-10-20] MEDS: diltiaZEM 120 mg/24 Hours CD Cap PO SCH (10:44)
[2016-10-20] MEDS: MethylPREDNISolone 40 mg Vial IV SCH ×2 (10:47→22:44)
--- NOTE | 2016-10-20 11:46 | PQF CHF ---
This form is a permanent part of the medical record Dr. Epps, Patient admitted with exacerbation of COPD and decompensated CHF. Please specify the type and severity of the CHF present. Clarification of your documentation is requested to better reflect the severity of illness and intensity of treatment of your patient. Indicators present [x] Diagnosis of CHF and/or history of CHF [x] BNP > 200 [x] Imaging Finding of Pulmonary Edema /Pleural Effusions [] Fluid/Volume Overload [] Pitting edema [] Ejection Fraction < 40% (Indicative of Systolic Heart Failure) [x] Ejection Fraction > 40% (Indicative of Diastolic Heart Failure) [] Dyspnea / Orthopenea / Paroxysmal Nocturnal Dyspnea [] Other: Location in the medical record that reflects the above clinical findings: [] Treatment Provided: [] PHYSICIAN'S RESPONSE Based on your medical judgment of the clinical indicators outlined above, are you treating this patient for a known or suspected: [] Acute CHF [] Systolic [] Diastolic [] Combined [] Chronic CHF [] Systolic [] Diastolic [] Combined [] Acute on Chronic CHF []Systolic [] Diastolic [] Combined [] CHF due hypertension [] Acute systolic []Chronic systolic [] Acute/ chronic systolic [] Other, please indicate: [] [] If Unable to Determine, please check the box, sign and date. Present On Admission (POA) Indicator: [] Present at the time of admission [] Not present at the time of admission [] Clinically Undetermined In responding to this query, please exercise your independent professional judgment. The fact that a question is asked does not imply that any particular answer is desired or expected. Thank you for your clarification on this documentation. If you have any questions please call:[ ] * Thank you, [ ]Ada Rivera [facility][id number] career development director [employer]
[2016-10-20] MEDS ORDERED: Insulin Detemir 100 units/ml Vial (Levemir) SC SCH (14:55)
--- NOTE | 2016-10-20 15:16 | CP.PCM.PN ---
<Cezar Velasco - Last Filed: 10/20/16 15:40> Subjective - Date & Time of Evaluation Date of Evaluation: 10/20/16 Time of Evaluation: 07:55 - Subjective Subjective: Pt seen and examined. Pt reports that she is feeling better. Pt sitting up in bed. Pt denies fever, chills, chest pain, shortness of breath, nausea, and vomiting. Objective - Vital Signs/Intake and Output Vital Signs (last 24 hours): Temp Pulse Resp BP Pulse Ox 97.6 F 87 20 128/71 96 10/20/16 12:00 10/20/16 12:00 10/20/16 12:00 10/20/16 12:00 10/20/16 06:00 Intake and Output: 10/20/16 10/20/16 06:59 18:59 Intake Total 240 Output Total 1000 Balance -760 - Medications Medications: Current Medications Acetaminophen (Tylenol 325mg Tab) 650 mg PO Q6H PRN PRN Reason: Pain, Mild (1-3) Albuterol/Ipratropium (Duoneb 3 Mg/0.5 Mg (3 Ml) Ud) 3 ml IH Q2H PRN PRN Reason: Shortness of Breath Last Admin: 10/19/16 01:14 Dose: 3 ml Albuterol/Ipratropium (Duoneb 3 Mg/0.5 Mg (3 Ml) Ud) 3 ml IH [id number] [facility] Last Admin: 10/20/16 14:01 Dose: 3 ml Ascorbic Acid (Vitamin C 500 Mg Tab) 500 mg PO DAILY [facility] Last Admin: 10/20/16 10:45 Dose: 500 mg Aspirin (Aspirin Chewable) 81 mg PO DAILY [facility] Last Admin: 10/20/16 10:43 Dose: 81 mg Atorvastatin Calcium (Lipitor) 40 mg PO DIN [facility] Last Admin: 10/19/16 17:16 Dose: 40 mg Carvedilol (Coreg) 25 mg PO BID [facility] Last Admin: 10/20/16 10:44 Dose: 25 mg Digoxin (Lanoxin) 0.125 mg PO 1400 [facility] Last Admin: 10/19/16 17:21 Dose: 0.125 mg Diltiazem HCl (Cardizem Cd) 120 mg PO DAILY [facility] Last Admin: 10/20/16 10:44 Dose: 120 mg Furosemide (Lasix) 40 mg IVP Q12 [facility] Last Admin: 10/20/16 10:46 Dose: 40 mg Insulin Detemir (Levemir) 30 unit SC HS [facility] Insulin Human Lispro (Humalog Low) 0 units SC ACHS [facility] PRN Reason: Protocol Last Admin: 10/20/16 13:12 Dose: 3 units Isosorbide Mononitrate (Imdur) 60 mg PO DAILY [facility] Last Admin: 10/20/16 10:45 Dose: 60 mg Lisinopril (Zestril) 2.5 mg PO DAILY [facility] Last Admin: 10/20/16 10:49 Dose: 2.5 mg Lorazepam (Ativan) 0.5 mg PO HS PRN; Protocol PRN Reason: Anxiety Methylprednisolone (Solu-Medrol) 20 mg IV Q12 [facility] Last Admin: 10/20/16 10:47 Dose: 20 mg Nitroglycerin (Nitrostat Sl Tab) 0.4 mg SL Q5MIN PRN PRN Reason: Other Non-Formulary Medication (Fenofibric Acid (Choline) [Trilipix]) 135 mg PO DIN [facility] Last Admin: 10/19/16 17:17 Dose: Not Given Ondansetron HCl (Zofran Inj) 4 mg IVP Q6H PRN PRN Reason: Nausea/Vomiting Pantoprazole Sodium (Protonix Ec Tab) 40 mg PO ACB [facility] Last Admin: 10/20/16 08:26 Dose: 40 mg Warfarin Sodium (Coumadin) 5 mg PO 1800 [facility] PRN Reason: Protocol Last Admin: 10/19/16 17:17 Dose: 5 mg - Labs Labs: 10/20/16 06:00 10/20/16 06:00 PT 21.5 Seconds (9.9-11.8) H 10/20/16 06:00 INR 1.99 (0.93-1.08) H 10/20/16 06:00 APTT 38.0 Seconds (23.7-30.8) H 10/18/16 21:20 - Constitutional Appears: No Acute Distress - Head Exam Head Exam: ATRAUMATIC, NORMOCEPHALIC - Eye Exam Eye Exam: EOMI, PERRL - ENT Exam ENT Exam: Mucous Membranes Moist. absent: Mucous Membranes Dry - Neck Exam Neck Exam: Full ROM. absent: Lymphadenopathy - Respiratory Exam Respiratory Exam: Clear to Ausculation Bilateral. absent: Rales, Rhonchi, Wheezes - Cardiovascular Exam Cardiovascular Exam: +S1, +S2. absent: Rubs, Murmur Additional comments: Distant heart sounds - GI/Abdominal Exam GI & Abdominal Exam: Soft, Normal Bowel Sounds. absent: Distended, Guarding, Tenderness - Extremities Exam Extremities Exam: absent: Pedal Edema - Neurological Exam Neurological Exam: Alert, Awake, Oriented x3 - Psychiatric Exam Psychiatric exam: Normal Affect, Normal Mood - Skin Skin Exam: Normal Color, Warm Assessment and Plan - Assessment and Plan (Free Text) Assessment: CHF Exacerbation: CXR - mild pulmonary vascular ocngestion (please see full report) Troponins negative x 4 Pro-bnp- 1610 Cardiology, Dr. Santana, consulted. Help appreciated. Echocardiogram - EF -45-50%, mild concentric left ventricular hypertrophy; trace to mild MR and TR EKG - ST and T wave abnormality, atrial fibrillation As per cardio, pt refuses cardiac bypass surgery; optimize medical management Digoxin 0.125 mg po qd Lasix 40 mg IV q12h Aspirin 81 mg po qd COPD exacerbation: [employer], Dr. Valle, consulted. Help appreciated. Duonebs q2h prn Solumedrol 20 mg IV q12h Atrial Fibrillation: Cardizem 120 mg po qd Coumadin 5 mg po qd INR - 1.99 HTN: Coreg 25 mg po bid Zestril 2.5 mg po qd Angina: Nitrostat 0.4 mg SL q5h prn Diabetes: Levemir 30 units sc hs Humalog sliding scale Hypercholesterolemia: Fenefibric Acid 125 mg po din Lipitor 40 mg po din Prophylactic Measures: GI: Protonix 40 mg po acb DVT: Coumadin 5 mg p qd Zofran prn for nausea Vitamin C <Shanell Johnson - Last Filed: 10/21/16 13:12> Objective - Vital Signs/Intake and Output Vital Signs (last 24 hours): Temp Pulse Resp BP Pulse Ox 97.5 F L 77 18 140/85 96 10/21/16 12:00 10/21/16 12:00 10/21/16 12:00 10/21/16 12:00 10/20/16 06:00 Intake and Output: 10/21/16 10/21/16 06:59 18:59 Intake Total 900 Output Total 2950 Balance -205 - Medications Medications: Current Medications Acetaminophen (Tylenol 325mg Tab) 650 mg PO Q6H PRN PRN Reason: Pain, Mild (1-3) Albuterol/Ipratropium (Duoneb 3 Mg/0.5 Mg (3 Ml) Ud) 3 ml IH Q2H PRN PRN Reason: Shortness of Breath Last Admin: 10/19/16 01:14 Dose: 3 ml Albuterol/Ipratropium (Duoneb 3 Mg/0.5 Mg (3 Ml) Ud) 3 ml IH [id number] [facility] Last Admin: 10/21/16 07:40 Dose: 3 ml Ascorbic Acid (Vitamin C 500 Mg Tab) 500 mg PO DAILY [facility] Last Admin: 10/21/16 09:16 Dose: 500 mg Aspirin (Aspirin Chewable) 81 mg PO DAILY [facility] Last Admin: 10/21/16 09:12 Dose: 81 mg Atorvastatin Calcium (Lipitor) 40 mg PO DIN [facility] Last Admin: 10/20/16 17:47 Dose: 40 mg Carvedilol (Coreg) 25 mg PO BID [facility] Last Admin: 10/21/16 09:13 Dose: 25 mg Digoxin (Lanoxin) 0.125 mg PO 1400 [facility] Last Admin: 10/21/16 13:00 Dose: 0.125 mg Diltiazem HCl (Cardizem Cd) 120 mg PO DAILY [facility] Last Admin: 10/21/16 09:13 Dose: 120 mg Furosemide (Lasix) 40 mg IVP Q12 [facility] Last Admin: 10/21/16 09:17 Dose: Not Given Insulin Detemir (Levemir) 30 unit SC [facility] Insulin Human Lispro (Humalog Low) 0 units SC [facility] PRN Reason: Protocol Last Admin: 10/21/16 12:41 Dose: 3 units Isosorbide Mononitrate (Imdur) 60 mg PO DAILY [facility] Last Admin: 10/21/16 09:13 Dose: 60 mg Lisinopril (Zestril) 2.5 mg PO DAILY [facility] Last Admin: 10/21/16 09:13 Dose: 2.5 mg Lorazepam (Ativan) 0.5 mg PO HS PRN; Protocol PRN Reason: Anxiety Nitroglycerin (Nitrostat Sl Tab) 0.4 mg SL Q5MIN PRN PRN Reason: Other Non-Formulary Medication (Fenofibric Acid (Choline) [Trilipix]) 135 mg PO DIN [facility] Last Admin: 10/20/16 17:45 Dose: Not Given Ondansetron HCl (Zofran Inj) 4 mg IVP Q6H PRN PRN Reason: Nausea/Vomiting Pantoprazole Sodium (Protonix Ec Tab) 40 mg PO ACB [facility] Last Admin: 10/21/16 07:06 Dose: Not Given Prednisone (Prednisone Tab) 30 mg PO DAILY [facility] Last Admin: 10/21/16 09:12 Dose: 30 mg Warfarin Sodium (Coumadin) 7.5 mg PO 1800 [facility] PRN Reason: Protocol Last Admin: 10/20/16 17:46 Dose: 7.5 mg - Labs Labs: 10/21/16 07:35 10/21/16 06:15 PT 29.7 Seconds (9.9-11.8) H 10/21/16 06:15 INR 2.75 (0.93-1.08) H 10/21/16 06:15 APTT 38.0 Seconds (23.7-30.8) H 10/18/16 21:20 Assessment and Plan - Assessment and Plan (Free Text) Assessment: Attending note; patient seen and examined with the resident. Patient is a 65-year-old female with a history of coronary artery disease, CABG , diabetes, COPD, oxygen dependent, anxiety is admitted with increasing leg swelling and shortness of breath. Getting treated with IV Lasix. Diuresing well. A. fib; on Coumadin. INR is therapeutic. Patient was evaluated by cardiology Dr. Santana. Continue meds per cardiology. Possible discharge home tomorrow with follow-up with PMD Dr. Yee. Attending/Attestation - Attestation I have personally seen and examined this patient.: Yes I have fully participated in the care of the patient.: Yes I have reviewed all pertinent clinical information, including history, physical exam and plan: Yes
--- NOTE | 2016-10-20 15:37 | PN ---
DATE: 10/20/2016 ADDENDUM: REASON FOR DICTATION: Addendum to the initial progress note dictated this morning. REASON FOR ADDENDUM: Second opinion on patient's request. BRIEF CLINICAL HISTORY: A 65-year-old female with history of coronary artery disease, CABG. The pat ient and the family requested to show the films to Dr. Phillips, get a second opinion whether the patien t can have any intervention done. Films were taken to the [facility], discussed with Dr. Phillips and films reviewed together, me and Dr. Phillips, thought to be very high risk for PCI, not s uitable because of tortuosity of the circumflex vessel. Both decided to have optimal medical treatme nt, so we will continue the current medical treatment on the patient including Coumadin for atrial fi brillation, statin, diuretics, aspirin, Coreg 25 mg twice a day, isosorbide mononitrate, Lasix and at orvastatin. Also, we will start Ranexa as recommended in cath report, Ranexa 500 p.o. b.i.d. Prescr iption given to the patient. Sat with the patient for 15 minutes, explained everything. Also, will discuss with Dr. Johnson about the plan. If the patient is stable, will be discharged home tomorro w. The patient will continue previous Cardizem plus Ranexa, all baseline medications plus Ranexa fro m tomorrow. Thank you, Dr. Johnson, for providing us opportunity in taking care of the patient. Je Santana MD cc:Shanell Johnson MD [id number] TT: 10/20/2016 15:37:12 Confirmation # [id number] Dictation # [id number] tn
[2016-10-20] MEDS: FENOFIBRIC ACID 135 MG PO SCH (17:45)
[2016-10-20] MEDS: Digoxin 125 mcg (0.125 mg) Tab PO SCH (17:46)
--- NOTE | 2016-10-20 18:42 | CARD ---
APPROVED REPORT EKG Measurement Heart [id number] <Conclusion> Atrial fibrillation ST & T wave abnormality, consider lateral ischemia or digitalis effect Abnormal ECG
[2016-10-21] MEDS: Albuterol-Ipratrop 3 mg / 0.5 (3 ml) UD IH SCH ×3 (01:59→13:54)
[2016-10-21] MEDS: Pantoprazole 40 mg EC Tab PO SCH (07:06)
[2016-10-21 07:15] LABS: INR 2.75 (0.93-1.08)
[2016-10-21 07:20] LABS: ALB/GLOB RATIO 1.3 (1.1-1.8); ALKALINE PHOSPHATASE 72 U/L (38-133); ALT/SGPT 33 U/L (7-56); AST/SGOT 30 U/L (15-39); BILIRUBIN,TOTAL 0.7 mg/dL (0.2-1.3); BLOOD UREA NITROGEN 42 mg/dL (7-21); CALCIUM 9.1 mg/dL (8.4-10.5); CARBON DIOXIDE 31 mmol/L (21-33); CHLORIDE 95 mmol/L (98-107); GFR AFRICAN-AMERICAN > 60; POTASSIUM 4.5 mmol/L (3.6-5.0); SODIUM 137 mmol/L (132-148); TOTAL PROTEIN 6.8 g/dL (5.8-8.3)
[2016-10-21 07:34] LABS: GLUCOSE,RANDOM 313 mg/dL (70-110)
[2016-10-21 07:38] LABS: ADD MANUAL DIFF? NO
[2016-10-21 07:42] LABS: GRAN # 8.35 (1.4-6.5); GRAN % 89.7 % (50.0-68.0); HEMATOCRIT 41.9 % (36.0-48.0); LYMPH # 0.7 (1.2-3.4); LYMPH % 7.9 % (22.0-35.0); MEAN CELL VOLUME 94.6 fL (80.0-105.0); MEAN CORPUSCULAR HEMOGLOBIN 33.2 pg (25.0-35.0); MEAN CORPUSCULAR HGB CONC 35.1 g/dl (31.0-37.0); MEAN PLATELET VOLUME 9.9 fl (7.0-11.0); MONO # 0.2 (0.1-0.6); MONO % 2.4 % (1.0-6.0); PLATELET COUNT 161 [, 10^3/uL] (120.0-450.0); RED CELL DISTRIBUTION WIDTH 13.2 % (11.5-14.5); WHITE BLOOD COUNT 9.3 [, 10^3/ul] (4.5-11.0)
--- NOTE | 2016-10-21 07:44 | PN ---
DATE: 10/21/2016 SUBJECTIVE: The patient appears very comfortable at rest. She is not short of breath. PHYSICAL EXAMINATION: VITAL SIGNS: Temperature is 98.1, pulse 79, respirations 19, blood pressure 117 /58. Oxygen saturation on nasal cannula is 96%. HEENT: Normocephalic, atraumatic. No JVD. CARDIOVASCULAR: Systolic ejection murmur at the lower left sternal border. No S3 gallop. LUNGS: Clear bilaterally this morning. EXTREMITIES: Less edema. No cyanosis, no clubbing. Calves are nontender to palpation. GASTROINTESTINAL: Abdomen is soft, nontender, nondistended. Bowel sounds are positive. SKIN: No acute rash. NEUROLOGIC: Limited at the present time. IMPRESSION: 1. Acute bronchitis. 2. Chronic obstructive pulmonary disease. 3. Mild bronchospasm. 4. Atrial fibrillation. 5. Coronary artery disease. 6. Diabetes mellitus. PLAN: The patient appears very comfortable this morning. She is not short of breath at rest. She has no chest discomfort this morning. She states she is feeling much better overall. On physical exam, her lungs are now clear. In addition, the oxygen saturation on nasal cannula is 96%. I will continue with the current nebulizer treatments and change to oral steroids this morning. Cardiology evaluation by Dr. Santana is noted. Clinical status of the patient is certainly improved -- compared to the initial presentation. I will discuss the above with the attending physician. Natan Valle MD cc: [id number] TT: 10/21/2016 07:43:51 Confirmation # [id number] Dictation # [id number] suzy ANAYA
[2016-10-21] MEDS: Insulin Lispro (humaLOG) LOW Coverage SC SCH ×2 (08:04→12:41)
[2016-10-21] MEDS: diltiaZEM 120 mg/24 Hours CD Cap PO SCH (09:13)
[2016-10-21 12:54] VITALS: BP 140/85; PULSE 77; RESP 18; TEMP 97.5
[2016-10-21] MEDS: Digoxin 125 mcg (0.125 mg) Tab PO SCH (13:00)
[2016-10-21 13:01] VITALS: PULSE 86
--- NOTE | 2016-10-21 13:20 | CP.PCM.DIS ---
Provider - Provider Date of Admission: 10/19/16 15:52 Attending physician: Shanell Johnson MD Time Spent in preparation of Discharge (in minutes): 35 Hospital Course - Lab Results Lab Results: Most Recent Lab Values WBC 9.3 10^3/ul (4.5-11.0) 10/21/16 07:35 RBC 4.43 10^6/uL (3.5-6.1) 10/21/16 07:35 Hgb 14.7 gm/dL (12.0-16.0) 10/21/16 07:35 Hct 41.9 % (36.0-48.0) 10/21/16 07:35 MCV 94.6 fL (80.0-105.0) 10/21/16 07:35 MCH 33.2 pg (25.0-35.0) 10/21/16 07:35 MCHC 35.1 g/dl (31.0-37.0) 10/21/16 07:35 RDW 13.2 % (11.5-14.5) 10/21/16 07:35 Plt Count 161 10^3/uL (120.0-450.0) 10/21/16 07:35 MPV 9.9 fl (7.0-11.0) 10/21/16 07:35 Gran % 89.7 % (50.0-68.0) H 10/21/16 07:35 Lymph % (Auto) 7.9 % (22.0-35.0) L 10/21/16 07:35 [place] % (Auto) 2.4 % (1.0-6.0) 10/21/16 07:35 Eos % (Auto) 0.0 % (1.5-5.0) L 10/21/16 07:35 Baso % (Auto) 0.0 % (0.0-3.0) 10/21/16 07:35 Gran # 8.35 (1.4-6.5) H 10/21/16 07:35 Lymph # 0.7 (1.2-3.4) L 10/21/16 07:35 [place] # 0.2 (0.1-0.6) 10/21/16 07:35 Eos # 0.0 (0.0-0.7) 10/21/16 07:35 Baso # 0.00 K/mm3 (0.0-2.0) 10/21/16 07:35 PT 29.7 Seconds (9.9-11.8) H 10/21/16 06:15 INR 2.75 (0.93-1.08) H 10/21/16 06:15 APTT 38.0 Seconds (23.7-30.8) H 10/18/16 21:20 Sodium 137 mmol/L (132-148) 10/21/16 06:15 Potassium 4.5 mmol/L (3.6-5.0) 10/21/16 06:15 Chloride 95 mmol/L (98-107) L 10/21/16 06:15 Carbon Dioxide 31 mmol/L (21-33) 10/21/16 06:15 Anion Gap 16 (10-20) 10/21/16 06:15 BUN 42 mg/dL (7-21) H 10/21/16 06:15 Creatinine 1.1 mg/dL (0.5-1.4) 10/21/16 06:15 Est GFR ( Amer) > 60 10/21/16 06:15 Est GFR (Non-Af Amer) 50 10/21/16 06:15 POC Glucose (mg/dL) 277 mg/dL (65-110) H 10/21/16 11:55 Random Glucose 313 mg/dL (70-110) H* 10/21/16 06:15 Hemoglobin A1c 6.0 % (4.2-6.5) 10/18/16 21:20 Calcium 9.1 mg/dL (8.4-10.5) 10/21/16 06:15 Phosphorus 4.4 mg/dL (2.5-4.5) 10/20/16 06:00 Magnesium 2.1 mg/dL (1.7-2.2) 10/20/16 06:00 Total Bilirubin 0.7 mg/dL (0.2-1.3) 10/21/16 06:15 AST 30 U/L (15-39) 10/21/16 06:15 ALT 33 U/L (7-56) 10/21/16 06:15 Alkaline Phosphatase 72 U/L (38-133) 10/21/16 06:15 Lactate Dehydrogenase 527 U/L (333-699) 10/18/16 21:20 Total Creatine Kinase 255 U/L (35-230) H 10/20/16 06:00 CK-MB (CK-2) 4.9 ng/mL (0.0-3.6) H 10/20/16 06:00 CK-MB (CK-2) % Cancelled 10/20/16 06:00 Troponin I < 0.01 ng/mL 10/20/16 06:00 NT-Pro-B Natriuret Pep 1610 pg/mL (0-450) H 10/18/16 21:20 Total Protein 6.8 g/dL (5.8-8.3) 10/21/16 06:15 Albumin 3.9 g/dL (3.0-4.8) 10/21/16 06:15 Globulin 2.9 gm/dL 10/21/16 06:15 Albumin/Globulin Ratio 1.3 (1.1-1.8) 10/21/16 06:15 Triglycerides 313 mg/dL (35-160) H 10/19/16 06:00 Cholesterol 208 mg/dL (130-200) H 10/19/16 06:00 LDL Cholesterol Direct 106 mg/dL (0-129) 10/19/16 06:00 HDL Cholesterol 39 mg/dL (29-60) 10/19/16 06:00 TSH 3rd Generation 1.84 mIU/mL (0.46-4.68) 10/18/16 21:20 Digoxin 0.8 ng/mL (0.8-2.0) 10/18/16 21:20 - Hospital Course Hospital Course: Patient is a 65-year-old female admitted with increasing leg swelling and shortness of breath. 1.acute diastolic CHF; started on IV Lasix. Diuresed well.leg swelling and shortness of breath improved. 2. Cardiac enzymes negative. Cardiology evaluation with Dr. Santana Appreciated. Patient with a history of CABG and cardiac cath. continue with medical management. started on Ranexa by cardiology. Medication delivered from [facility] pharmacy to bedside. 3.COPD; oxygen dependent. Continue Xopenex, budesonide At home. Treated with IV steroids. Will be discharged home with Medrol Dosepak. Called to [facility]'s pharmacy. 4.A. fib; INR is therapeutic. Continue Coumadin. 5.Diabetes; continue Levemir. 6. Gait instability; physical therapy evaluation appreciated. Recommended subacute rehabilitation. Patient refused rehabilitation. Will be going home today. new Medications; ranexa, Medrol Dosepak continue rest of the home medications. Diagnosis; Acute diastolic CHF. COPD/oxygen dependent A. fib CABG diabetes Gait instability Discharge Exam - Head Exam Head Exam: ATRAUMATIC, NORMOCEPHALIC - Eye Exam Eye Exam: Normal appearance - ENT Exam ENT Exam: Mucous Membranes Moist - Respiratory Exam Respiratory Exam: NORMAL BREATHING PATTERN - Cardiovascular Exam Cardiovascular Exam: Irregular Rhythm - GI/Abdominal Exam GI & Abdominal Exam: Normal Bowel Sounds - Extremities Exam Extremities exam: pedal edema - Back Exam Back exam: absent: CVA tenderness (L), CVA tenderness (R) - Neurological Exam Neurological exam: Alert - Psychiatric Exam Psychiatric exam: Normal Affect - Skin Skin Exam: Normal Color Discharge Plan - Discharge Medications Prescriptions: Methylprednisolone [Medrol Dose Pack (21 tabs)] 4 mg PO DAILY #21 mg Ranolazine [Ranexa] 500 mg PO BID #60 ter - Follow Up Plan Condition: FAIR Disposition: HOME/ ROUTINE Instructions: Heart Failure (GEN), How to Stop Smoking (DC), Cigarette Smoking and Your Health (GEN), Using Oxygen at Home (DC), COPD (Chronic Obstructive Pulmonary Disease) (DC) Additional Instructions: 1. Follow up with PMd Dr. Yee in 5 days. 2. Follow up with Cardiology Dr. santana. 3. Follow up with pulmonary DR. cardona. Nursing If you begin to experience chest pain, shortness of breath, symptoms return, or any changes, return to the nearest emergency room or call 911, See care notes provided for further instructions. You will resume your medications from home. You will also start new medication Ranexa which you already have and Medrol dose Pack. Medrol dose pack medications was called in to your pharmacy [facility]. Make sure you get your Medrol dose pack
== END 2016-10-21 15:36 | disposition home or self-care (01) | DRG 190 ==
LOC: ED 19:16 → ERH 22:04 → 2RNO 10-19 02:16 → OBSVTOIN 10-19 15:52
PROVIDERS: ADMIT Internal Medicine; ATTEND Internal Medicine
DX: J44.1 Chronic obstructive pulmonary disease with (acute) exacerbation (principal); I50.31 Acute diastolic (congestive) heart failure; Z99.81 Dependence on supplemental oxygen; I48.0 Paroxysmal atrial fibrillation; E66.01 Morbid (severe) obesity due to excess calories; I08.1 Rheumatic disorders of both mitral and tricuspid valves; J44.0 Chronic obstructive pulmonary disease with (acute) lower respiratory infection; J20.9 Acute bronchitis, unspecified; I25.119 Atherosclerotic heart disease of native coronary artery with unspecified angina pectoris; I10 Essential (primary) hypertension; F41.9 Anxiety disorder, unspecified; F17.200 Nicotine dependence, unspecified, uncomplicated; E78.5 Hyperlipidemia, unspecified; E78.00 Pure hypercholesterolemia, unspecified; E11.9 Type 2 diabetes mellitus without complications; R79.1 Abnormal coagulation profile; Z79.01 Long term (current) use of anticoagulants; Z79.82 Long term (current) use of aspirin; Z79.899 Other long term (current) drug therapy; Z95.1 Presence of aortocoronary bypass graft; Z95.5 Presence of coronary angioplasty implant and graft; Z87.01 Personal history of pneumonia (recurrent); R26.81 Unsteadiness on feet; Z68.39 Body mass index [BMI] 39.0-39.9, adult

== ENCOUNTER 2017-04-09 15:28 | Inpatient (IN) | payer MEDICARE ==
[2017-04-09 15:35] VITALS: BMI 41.3
[2017-04-09 16:29] LABS: BASO # 0.05 K/mm3 (0.0-2.0); BASO % 0.8 % (0.0-3.0); EOS # 0.2 (0.0-0.7); EOS % 3.4 % (1.5-5.0); GRAN # 3.97 (1.4-6.5); GRAN % 61.2 % (50.0-68.0); HEMATOCRIT 37.3 % (36.0-48.0); LYMPH # 1.7 (1.2-3.4); LYMPH % 25.8 % (22.0-35.0); MEAN CELL VOLUME 100.3 fl (80.0-105.0); MEAN CORPUSCULAR HEMOGLOBIN 34.9 pg (25.0-35.0); MEAN CORPUSCULAR HGB CONC 34.9 g/dl (31.0-37.0); MEAN PLATELET VOLUME 9.5 fl (7.0-11.0); MONO # 0.6 (0.1-0.6); MONO % 8.8 % (1.0-6.0); RED CELL DISTRIBUTION WIDTH 13.1 % (11.5-14.5); WHITE BLOOD COUNT 6.5 10^3/ul (4.5-11.0)
[2017-04-09 16:38] LABS: ALB/GLOB RATIO 1.5 (1.1-1.8); ALKALINE PHOSPHATASE 61 U/L (38-126); ALT/SGPT 52 U/L (7-56); AST/SGOT 47 U/L (14-36); BILIRUBIN,TOTAL 0.7 mg/dL (0.2-1.3); BLOOD UREA NITROGEN 69 mg/dL (7-21); CARBON DIOXIDE 38 mmol/L (21-33); CHLORIDE 90 mmol/L (98-107); GFR AFRICAN-AMERICAN 34; GLUCOSE,RANDOM 108 mg/dL (70-110); POTASSIUM 4.5 mmol/L (3.6-5.0); SODIUM 135 mmol/L (132-148); TOTAL PROTEIN 6.8 g/dL (5.8-8.3)
[2017-04-09 16:53] LABS: TROPONIN I < 0.01 ng/mL
--- NOTE | 2017-04-09 18:59 | ED PDOC ---
Arrival/HPI - General Chief Complaint: Shortness Of Breath Time Seen by Provider: 04/09/17 15:53 Historian: Patient - History of Present Illness Narrative History of Present Illness (Text): 04/09/17 18:55 A 66 year old female presents to the emergency department complaining of shortness of breath since this morning. Patient reports using nebulizer treatments at home, with no relief. Patient was seen by PMD and instructed to come to the emergency room for further evaluation. She states she has been taking Lasix and notes lower extremity swelling. Patient denies any fever. chills, nausea, vomiting, abdominal pain, chest pain, cough or any other complaints. PMD: Dr. Yee Time/Duration: Other (this morning) Symptom Course: Unchanged Quality: Other Context: Home Past Medical History - Provider Review Nursing Documentation Reviewed: Yes - Infectious Disease Hx of Infectious Diseases: None - Tetanus Immunization Tetanus Immunization: Up to Date - Reproductive Menopause: Yes - Cardiac Hx Cardiac Disorders: Yes Hx Congestive Heart Failure: Yes Hx Hypertension: Yes Hx Peripheral Vascular Disease: Yes - Pulmonary Hx Chronic Obstructive Pulmonary Disease (COPD): Yes - Neurological HX Cerebrovascular Accident: No - HEENT Hx HEENT Disorder: No Hx Blind: No Hx Cataracts: No Hx Deafness: No Hx Difficulty Chewing: No Hx Epistaxis: No Hx Glaucoma: No Hx Macular Degeneration: No - Renal Hx Renal Failure: No - Endocrine/Metabolic Hx Diabetes Mellitus Type 1: No Hx Diabetes Mellitus Type 2: Yes Hx Hypothyroidism: No - Hematological/Oncological Hx Blood Disorders: No Hx AIDS: No Hx Anemia: No Hx Cancer: No Hx Chemotherapy: No Hx Cirrhosis: No Hx Hemophilia: No Hx Hepatitis A: No Hx Hepatitis B: No Hx Hepatitis C: No Hx Metastasis: No Hx Shingles: No Hx Sickle Cell Disease: No Hx Unexplained Bleeding: No - Integumentary Hx Dermatological Disorder: No Hx Basal Cell Carcinoma: No Hx Eczema: No Hx Melanoma: No Hx Psoriasis: No Hx Squamous Cell Carcinoma: No - Musculoskeletal/Rheumatological Hx Arthritis: No - Gastrointestinal Hx Gastrointestinal Disorders: No Hx Colostomy: No Hx Crohn's Disease: No Hx Diverticulitis: No Hx Gall Bladder Disease: No Hx Gastroesophageal Reflux: No Hx Ileostomy: No Hx Liver Failure: No Hx Pancreatitis: No HX Swallowing Problems: No - Genitourinary/Gynecological Hx Genitourinary Disorders: No Hx Hematuria: No Hx Incontinence: No Hx Sexually Transmitted Diseases: No Hx Urinary Tract Infection: No - Psychiatric Hx Psychophysiologic Disorder: Yes Hx Anxiety: Yes Hx Bipolar Disorder: No Hx Depression: Yes Hx Emotional Abuse: No Hx Hallucinations: No Hx Panic Disorder: Yes Hx Post Traumatic Stress Disorder: No Hx Psychosis: No Hx Physical Abuse: No Hx Schizophrenia: No Hx Sexual Abuse: No Hx Substance Use: No - Surgical History Hx Amputation: No Hx Appendectomy: No Hx Cardiac Catheterization: Yes Hx Cholecystectomy: No Hx Coronary Stent: Yes Hx Gastric Bypass Surgery: No Hx Hysterectomy: No Hx Joint Replacement: No Hx Kidney Transplant: No Hx Liver Transplant: No Hx Mastectomy: No Hx Musculoskeletal Surgery: No Hx Open Heart Surgery: Yes (CABG) Hx Orthopedic Surgery: No Hx Splenectomy: No Hx Valve Replacement: No - Anesthesia Hx Anesthesia: No - Suicidal Assessment Feels Threatened In Home Enviroment: No Family/Social History - Physician Review Nursing Documentation Reviewed: Yes Family/Social History: No Known Family HX Smoking Status: Light Smoker < 10 Cigarettes Daily Hx Alcohol Use: No Hx Substance Use: No Allergies/Home Meds Allergies/Adverse Reactions: Allergies codeine Adverse Reaction (Verified 04/09/17 15:35) VOMITING Home Medications: Home Meds Medication Instructions Recorded Confirmed Aspirin 81 mg PO HS 12/07/13 04/10/17 Atorvastatin [Lipitor] 40 mg PO DIN 12/07/13 04/09/17 LORazepam [Ativan] 0.5 mg PO DAILY PRN 12/07/13 04/09/17 Furosemide [Lasix] 80 mg PO DAILY 02/22/16 04/10/17 Insulin Detemir [Levemir] 54 unit SC 02/22/16 04/09/17 Multivit-Min/FA/Lycopen/Lutein 1 each PO DAILY 02/22/16 04/09/17 [Centrum Silver Tablet] Potassium Chloride [Klor-Con M20] 20 meq PO DAILY 02/22/16 04/09/17 Tiotropium [Spiriva] 2 puff INH DAILY 02/22/16 04/09/17 Warfarin [Coumadin] 5 mg PO HS 02/22/16 04/10/17 Budesonide [Pulmicort Flexhaler] 180 mcg INH DAILY 04/09/17 04/09/17 Carvedilol [Coreg] 25 mg PO HS 04/09/17 04/10/17 Digoxin [Lanoxin] 0.125 mg PO DAILY 04/09/17 04/09/17 Isosorbide Mononitrate [Ismo] 60 mg PO DAILY 04/09/17 04/10/17 [id number] CD [Cardizem CD] 180 mg PO DAILY 04/09/17 04/09/17 Lisinopril [Zestril] 2.5 mg PO HS 04/10/17 04/10/17 Review of Systems - Physician Review All systems were reviewed & negative as marked: Yes - Review of Systems Constitutional: absent: Fevers, Night Sweats Respiratory: SOB. absent: Cough Cardiovascular: absent: Chest Pain Gastrointestinal: absent: Abdominal Pain, Nausea, Vomiting Musculoskeletal: Other (LE swelling) Physical Exam Vital Signs Reviewed: Yes Vital Signs Temp Pulse Resp BP Pulse Ox 04/09/17 18:22 98.5 F 79 18 107/58 L 97 04/09/17 17:04 98.5 F 71 18 112/62 96 04/09/17 16:35 102/73 04/09/17 16:32 20 04/09/17 15:58 98.6 F 78 20 127/63 96 04/09/17 15:44 98.6 F 78 20 127/63 96 Temperature: Afebrile Blood Pressure: Normal Pulse: Regular Respiratory Rate: Normal Appearance: Positive for: Well-Appearing, Non-Toxic, Comfortable Pain Distress: None Mental Status: Positive for: Alert and Oriented X 3 Finger Stick Blood Glucose: 121 - Systems Exam Head: Present: Atraumatic, Normocephalic Pupils: Present: PERRL Extroacular Muscles: Present: EOMI Conjunctiva: Present: Normal Mouth: Present: Moist Mucous Membranes Neck: Present: Normal Range of Motion Respiratory/Chest: Present: Good Air Exchange, Rales (bilaterally). No: Respiratory Distress, Accessory Muscle Use Cardiovascular: Present: Normal S1, S2, Irregular Rhythm. No: Murmurs Abdomen: Present: Distention (Slightly), Normal Bowel Sounds. No: Tenderness, Peritoneal Signs Back: Present: Normal Inspection Upper Extremity: Present: Normal Inspection. No: Cyanosis, Edema Lower Extremity: Present: Edema (2+ pitting edema bilaterally). No: CALF TENDERNESS Neurological: Present: GCS=15, CN II-XII Intact, Speech Normal Skin: Present: Warm, Dry, Normal Color. No: Rashes Psychiatric: Present: Alert, Oriented x 3, Normal Insight, Normal Concentration Medical Decision Making ED Course and Treatment: 04/09/17 18:55 Impression: A 66 year old female with shortness of breath. Plan: -- Chest xray -- EKG -- Labs -- Urinalysis -- Lasix -- Reassess and disposition Progress Notes: EKG shows atrial fibrillation at 70 BPM. Interpreted by me. Case discussed with Dr. Johnson, who accepts patient under her service to telemetry. - Lab Interpretations Lab Results: 04/09/17 16:20 04/09/17 16:20 Lab Results 04/09/17 16:20: Digoxin 1.4 04/09/17 16:20: Sodium 135, Potassium 4.5, Chloride 90 L, Carbon Dioxide 38 H, Anion Gap 12, BUN 69 H, Creatinine 1.8 H, Est GFR ( Amer) 34, Est GFR ( Non-Af Amer) 28, Random Glucose 108, Calcium 10.0, Total Bilirubin 0.7, AST 47 H , ALT 52, Alkaline Phosphatase 61, Lactate Dehydrogenase 498, Total Creatine Kinase 70, Troponin I < 0.01, NT-Pro-B Natriuret Pep 1610 H, Total Protein 6.8, Albumin 4.1, Globulin 2.7, Albumin/Globulin Ratio 1.5 04/09/17 16:20: WBC 6.5 D, RBC 3.72, Hgb 13.0, Hct 37.3, MCV 100.3, MCH 34.9, MCHC 34.9, RDW 13.1, Plt Count 156, MPV 9.5, Gran % 61.2, Lymph % (Auto) 25.8, Parke % (Auto) 8.8 H, Eos % (Auto) 3.4, Baso % (Auto) 0.8, Gran # 3.97, Lymph # 1.7, Parke # 0.6, Eos # 0.2, Baso # 0.05 04/09/17 16:08: POC Glucose (mg/dL) 121 H I have reviewed the lab results: Yes - RAD Interpretation Radiology Orders: 04/09/17 16:14 CHEST PORTABLE [RAD] Stat - Medication Orders Current Medication Orders: Acetaminophen (Tylenol 325mg Tab) 650 mg PO Q6H PRN PRN Reason: Pain Last Admin: 04/12/17 09:37 Dose: 650 mg Re-Assess: MAR Pain/Vitals Document 04/12/17 10:37 DEL (Rec: 04/12/17 15:14 DEL [id number]) Pain Reassessment Is This A Pain ReAssessment? Yes Sleep Is patient sleeping during reassessment? No Presence of Pain Presence of Pain No Aspirin (Aspirin Chewable) 81 mg PO HS [facility] Last Admin: 04/12/17 21:49 Dose: 81 mg Atorvastatin Calcium (Lipitor) 40 mg PO DIN [facility] Last Admin: 04/12/17 17:28 Dose: 40 mg Budesonide (Pulmicort Respules) 0.5 mg IH [id number] [facility] Last Admin: 04/13/17 08:30 Dose: 0.5 mg Digoxin (Lanoxin) 0.125 mg PO DAILY [facility] Last Admin: 04/12/17 13:06 Dose: 0.125 mg Diltiazem HCl (Cardizem Cd) 180 mg PO DAILY [facility] Last Admin: 04/13/17 10:16 Dose: 180 mg Furosemide (Lasix) 40 mg PO 0800,1400 [facility] Furosemide (Lasix) 20 mg IVP ONCE ONE Stop: 04/13/17 18:01 Ceftriaxone Sodium (Rocephin 1 Gram Ivpb) 1 gm in 100 mls @ 100 mls/hr IVPB DAILY [facility] PRN Reason: Protocol Last Admin: 04/13/17 10:16 Dose: 100 mls/hr Insulin Human Lispro (Humalog Med) 0 units SC ACHS [facility] PRN Reason: Protocol Last Admin: 04/13/17 08:23 Dose: 5 units Isosorbide Mononitrate (Imdur) 60 mg PO DAILY [facility] Last Admin: 04/13/17 10:17 Dose: 60 mg Levalbuterol HCl (Xopenex) 0.63 mg IH [id number] [facility] Last Admin: 04/13/17 08:30 Dose: 0.63 mg Levalbuterol HCl (Xopenex) 0.63 mg IH Q2 PRN PRN Reason: Shortness of Breath Lisinopril (Zestril) 2.5 mg PO HS [facility] Lorazepam (Ativan) 0.5 mg PO DAILY PRN; Protocol PRN Reason: Anxiety Last Admin: 04/12/17 21:49 Dose: 0.5 mg Non-Formulary Medication (Ranolazine [Ranexa]) 500 mg PO BID [facility] Last Admin: 04/13/17 10:18 Dose: Ondansetron HCl (Zofran Inj) 4 mg IVP Q4H PRN PRN Reason: Nausea/Vomiting Pantoprazole Sodium (Protonix Ec Tab) 40 mg PO 0600 [facility] Last Admin: 04/13/17 05:56 Dose: 40 mg Potassium Chloride (K-Dur 20 Meq Er Tab) 20 meq PO DAILY [facility] Last Admin: 04/13/17 10:16 Dose: 20 meq Tiotropium [place] (Spiriva) 2 mcg INH DAILY [facility] Last Admin: 04/13/17 10:17 Dose: 0.1 mcg Warfarin Sodium (Coumadin) 5 mg PO 1800 [facility] PRN Reason: Protocol Last Admin: 04/12/17 17:28 Dose: 5 mg Discontinued Medications Albuterol/Ipratropium (Duoneb 3 Mg/0.5 Mg (3 Ml) Ud) 3 ml IH STAT [facility] Stop: 04/10/17 00:10 Last Admin: 04/10/17 00:32 Dose: 3 ml Aspirin (Aspirin Chewable) 81 mg PO DAILY [facility] Aspirin (Aspirin Chewable) 81 mg PO STAT [facility] Stop: 04/09/17 23:29 Last Admin: 04/10/17 00:18 Dose: 81 mg Furosemide (Lasix) 40 mg IVP STAT [facility] Stop: 04/09/17 16:14 Last Admin: 04/09/17 16:35 Dose: 40 mg Furosemide (Lasix) 40 mg IVP DAILY [facility] Stop: 04/13/17 11:00 Last Admin: 04/13/17 10:18 Dose: 40 mg Furosemide (Lasix) 20 mg IVP ONCE ONE Stop: 04/12/17 18:39 Last Admin: 04/12/17 20:17 Dose: 20 mg Ceftriaxone Sodium (Rocephin 1 Gram Ivpb) 1 gm in 100 mls @ 100 mls/hr IVPB DAILY [facility] PRN Reason: Protocol Milrinone Lactate/Dextrose (Primacor 20mg/100ml D5w) 100 mls @ 6.559 mls/hr IV .[id number] PRN; Protocol; 0.2 MCG/KG/MIN PRN Reason: TITRATE PER MD ORDER Stop: 04/13/17 07:00 Last Admin: 04/12/17 21:49 Dose: 0.2 mcg/kg/min, 6.559 mls/hr Lisinopril (Zestril) 2.5 mg PO DAILY [facility] Potassium Chloride (K-Dur 20 Meq Er Tab) 40 meq PO ONCE ONE Stop: 04/12/17 10:03 Last Admin: 04/12/17 17:28 Dose: 40 meq Warfarin Sodium (Coumadin) 5 mg PO MWF [facility] PRN Reason: Protocol Warfarin Sodium (Coumadin) 7.5 mg PO TTS [facility] PRN Reason: Protocol Warfarin Sodium (Coumadin) 5 mg PO STAT [facility] PRN Reason: Protocol Stop: 04/09/17 23:29 Last Admin: 04/10/17 00:19 Dose: 5 mg Warfarin Sodium (Coumadin) 5 mg PO 1800 [facility] PRN Reason: Protocol Last Admin: 04/10/17 18:02 Dose: 5 mg Warfarin Sodium (Coumadin) 7.5 mg PO ONCE ONE PRN Reason: Protocol Stop: 04/11/17 18:01 Last Admin: 04/11/17 17:06 Dose: 7.5 mg - Scribe Statement The provider has reviewed the documentation as recorded by the Tabitha Riley Provider Scribe Attestation: All medical record entries made by the Tabitha were at my direction and personally dictated by me. I have reviewed the chart and agree that the record accurately reflects my personal performance of the history, physical exam, medical decision making, and the department course for this patient. I have also personally directed, reviewed, and agree with the discharge instructions and disposition. Disposition/Present on Arrival - Present on Arrival Any Indicators Present on Arrival: No History of DVT/PE: No History of Uncontrolled Diabetes: No Urinary Catheter: No History of Decub. Ulcer: No History Surgical Site Infection Following: None - Disposition Have Diagnosis and Disposition been Completed?: Yes Diagnosis: CHF (congestive heart failure) Disposition: HOSPITALIZED Disposition Time: 18:15 Patient Problems: Current Active Problems Problem Status Onset Acute renal failure Acute CHF (congestive heart failure) Acute Metabolic alkalosis Acute UTI (urinary tract infection) Acute HTN (hypertension) Chronic Condition: STABLE
[2017-04-09 19:32] LABS: PH,URINE 6.5 (4.7-8.0); URINE BILIRUBIN NEGATIVE (NEGATIVE); URINE BLOOD NEGATIVE (NEGATIVE); URINE GLUCOSE (UA) NEGATIVE (NEGATIVE); URINE KETONE NEGATIVE (NEGATIVE); URINE LEUKOCYTE ESTERASE MODERATE Leu/uL (NEGATIVE); URINE PROTEIN NEGATIVE mg/dL (<30 mg/dL); URINE UROBILINOGEN 0.2 E.U./dL (<1 E.U./dL)
[2017-04-09 19:34] LABS: URINE APPEARANCE CLEAR (CLEAR); URINE COLOR YELLOW (YELLOW)
[2017-04-09 19:41] LABS: INR 2.19 (0.93-1.08); PARTIAL THROMBOPLASTIN TIME 32.7 Seconds (23.7-30.8); URINE RBC 0 - 2 /hpf (0-2); URINE WBC 15 - 20 /hpf (0-6)
[2017-04-09 19:42] LABS: URINE AMORPHOUS SEDIMENT FEW; URINE BACTERIA LARGE (NEG)
--- NOTE | 2017-04-09 20:04 | CP.PCM.HP ---
<Alfredo Tavarez - Last Filed: 04/09/17 21:12> History of Present Illness - History of Present Illness History of Present Illness: 65 y/o F with PMH of A-fib, COPD, CHF with EF of 40%, DM, CAD s/p CABG, LA, HTN , HLD, and Anxiety presented with shortness of breath for the past week. Patient states she has had progressive worsening of her respiratory status over the past week, causing her to become short of breath while performing activities around the house. Pt states she has had similar symptoms like this in the past. She went to see Dr. Yee today and was told to come to the ED after her O2 sats were found to be in the low 90's despite being on oxygen. Pt states she has been compliant with her medications, although she did not take all of her medications today before she came to the hospital. Currently the patient is resting comfortably in her bed talking in complete sentences. She denies any cough at this time. Denies CP, N/V/D, fever, chills, syncope, dizziness, fatigue. PMH: A-fib, COPD, CHF with EF of 40%, DM, CAD s/p CABG, LA, HTN, HLD, and Anxiety PSH: CABG FHx: Mother - CAD Social Hx: Admits to tobacco use, denies alcohol or illicit drugs. Allergies: Codeine PMD: Dr. Yee Present on Admission - Present on Admission Any Indicators Present on Admission: No Review of Systems - Review of Systems Review of Systems: 12 point review of systems as per HPI, otherwise negative Past Patient History - Infectious Disease Hx of Infectious Diseases: None - Tetanus Immunizations Tetanus Immunization: Up to Date - Past Social History Smoking Status: Light Smoker < 10 Cigarettes Daily - CARDIAC Hx Cardiac Disorders: Yes Hx Congestive Heart Failure: Yes Hx Hypertension: Yes Hx Peripheral Vascular Disease: Yes - PULMONARY Hx Chronic Obstructive Pulmonary Disease (COPD): Yes - NEUROLOGICAL HX Cerebrovascular Accident: No - HEENT Hx HEENT Problems: No Hx Blind: No Hx Cataracts: No Hx Deafness: No Hx Difficulty Chewing: No Hx Epistaxis: No Hx Glaucoma: No Hx Macular Degeneration: No - RENAL Hx Renal Failure: No - ENDOCRINE/METABOLIC Hx Diabetes Mellitus Type 1: No Hx Diabetes Mellitus Type 2: Yes Hx Hypothyroidism: No - HEMATOLOGICAL/ONCOLOGICAL Hx Blood Disorders: No Hx AIDS: No Hx Anemia: No Hx Cancer: No Hx Chemotherapy: No Hx Cirrhosis: No Hx Hemophilia: No Hx Hepatitis A: No Hx Hepatitis B: No Hx Hepatitis C: No Hx Metastesis: No Hx Shingles: No Hx Sickle Cell Disease: No Hx Unexplained Bleeding: No - INTEGUMENTARY Hx Dermatological Problems: No Hx Basil Cell: No Hx Eczema: No Hx Melanoma: No Hx Psoriasis: No Hx Squamous Cell: No - MUSCULOSKELETAL/RHEUMATOLOGICAL Hx Arthritis: No - GASTROINTESTINAL Hx Gastrointestinal Disorders: No Hx Colostomy: No Hx Crohn's Disease: No Hx Diverticulitis: No Hx Gall Bladder Disease: No Hx Gastroesophageal Reflux: No Hx Ileostomy: No Hx Liver Failure: No Hx Pancreatitis: No HX Swallowing Problems: No - GENITOURINARY/GYNECOLOGICAL Hx Genitourinary Disorders: No Hx Hematuria: No Hx Incontinence: No Hx Sexually Transmitted Disorders: No Hx Urinary Tract Infection: No - PSYCHIATRIC Hx Psychophysiologic Disorder: Yes Hx Anxiety: Yes Hx Bipolar Disorder: No Hx Depression: Yes Hx Emotional Abuse: No Hx Hallucinations: No Hx Panic Symptoms: Yes Hx Post Traumatic Stress Disorder: No Hx Psychosis: No Hx Physical Abuse: No Hx Schizophrenia: No Hx Sexual Abuse: No Hx Substance Use: No - SURGICAL HISTORY Hx Amputation: No Hx Appendectomy: No Hx Cardiac Catheterization: Yes Hx Cholecystectomy: No Hx Coronary Stent: Yes Hx Gastric Bypass Surgery: No Hx Hysterectomy: No Hx Joint Replacement: No Hx Kidney Transplant: No Hx Liver Transplant: No Hx Mastectomy: No Hx Musculoskeletal Surgery: No Hx Open Heart Surgery: Yes (CABG) Hx Orthopedic Surgery: No Hx Splenectomy: No Hx Valve Replacement: No - ANESTHESIA Hx Anesthesia: No Meds Allergies/Adverse Reactions: Allergies Allergy/AdvReac Type Severity Reaction Status Date / Time codeine AdvReac VOMITING Verified 04/09/17 15:35 Physical Exam - Constitutional Appears: Non-toxic, No Acute Distress - Head Exam Head Exam: ATRAUMATIC, NORMAL INSPECTION, NORMOCEPHALIC - Eye Exam Eye Exam: EOMI, Normal appearance - ENT Exam ENT Exam: Mucous Membranes Moist, Normal Exam - Neck Exam Neck exam: Positive for: Normal Inspection. Negative for: Lymphadenopathy - Respiratory Exam Respiratory Exam: Rales, NORMAL BREATHING PATTERN. absent: Rhonchi, Wheezes - Cardiovascular Exam Cardiovascular Exam: RRR, +S1, +S2 - GI/Abdominal Exam GI & Abdominal Exam: Normal Bowel Sounds, Soft. absent: Tenderness - Extremities Exam Extremities exam: Positive for: pedal edema (+2 pitting edema b/l). Negative for: calf tenderness - Neurological Exam Neurological exam: Alert, CN II-XII Intact, Oriented x3 - Psychiatric Exam Psychiatric exam: Normal Affect, Normal Mood - Skin Skin Exam: Intact, Normal Color, Warm Results - Vital Signs Recent Vital Signs: Last Vital Signs Temp 98.5 F 04/09/17 18:22 Pulse 79 04/09/17 18:22 Resp 18 04/09/17 18:22 BP 107/58 L 04/09/17 18:22 Pulse Ox 97 04/09/17 18:22 - Labs Result Diagrams: 04/09/17 16:20 04/09/17 16:20 Labs: Laboratory Results - last 24 hr 04/09/17 04/09/17 19:23 19:23 PT 23.7 H INR 2.19 H APTT 32.7 H Urine Color Yellow Urine Appearance Clear Urine pH 6.5 Ur Specific Paicines 1.010 Urine Protein Negative Urine Glucose (UA) Negative Urine Ketones Negative Urine Blood Negative Urine Nitrate Positive H Urine Bilirubin Negative Urine Urobilinogen 0.2 Ur Leukocyte Esterase Moderate H Urine RBC 0 - 2 Urine WBC 15 - 20 Ur Epithelial Cells 4 - 5 Amorphous Sediment Few Urine Bacteria Large Fine Granular Casts 0 - 2 Urine Other Uyeast Assessment & Plan - Assessment and Plan (Free Text) Plan: 65 y/o F with PMH of A-fib, COPD, CHF with EF of 40%, DM, CAD s/p CABG, LA, HTN , HLD, and Anxiety presents with CHF exacerbation and UTI. Pt with similar complaints on previous admission in September. Patient will be diuresed and placed on empiric antibiotics for UTI. Nephrology and Cardiology consults will be placed. 1. CHF exacerbation Lasix 40 mg IV daily Recent echo 40% Strict I's and O's Daily weights Cardiology Consult, Dr. Santana 2. UTI Rocephin Urine culture 3. DELMY Likely secondary to decompensated CHF Will continue to monitor Nephrology consult, Dr. Grant 4. A-fib Rate controlled Continue Warfarin Monitor INR daily 5. DM ISS HgA1c 6. HTN Hold BP meds at this time 7. PPX Warfarin Protonix Brian Tavarez, PGY-2 <Grace,Guli N - Last Filed: 04/10/17 19:23> Results - Vital Signs Recent Vital Signs: Last Vital Signs Temp 98.7 F 04/10/17 12:00 Pulse 80 04/10/17 18:00 Resp 18 04/10/17 12:00 BP 111/58 L 04/10/17 12:00 Pulse Ox 97 04/10/17 06:00 - Labs Result Diagrams: 04/10/17 08:30 04/10/17 08:30 Labs: Laboratory Results - last 24 hr 04/09/17 04/09/17 04/09/17 19:23 19:23 21:44 WBC RBC Hgb Hct MCV MCH MCHC RDW Plt Count MPV PT 23.7 H INR 2.19 H APTT 32.7 H Sodium Potassium Chloride Carbon Dioxide Anion Gap BUN Creatinine Est GFR ( Amer) Est GFR (Non-Af Amer) POC Glucose (mg/dL) 176 H Random Glucose Hemoglobin A1c Calcium Phosphorus Magnesium Total Bilirubin AST ALT Alkaline Phosphatase Total Protein Albumin Globulin Albumin/Globulin Ratio Urine Color Yellow Urine Appearance Clear Urine pH 6.5 Ur Specific Paicines 1.010 Urine Protein Negative Urine Glucose (UA) Negative Urine Ketones Negative Urine Blood Negative Urine Nitrate Positive H Urine Bilirubin Negative Urine Urobilinogen 0.2 Ur Leukocyte Esterase Moderate H Urine RBC 0 - 2 Urine WBC 15 - 20 Ur Epithelial Cells 4 - 5 Amorphous Sediment Few Urine Bacteria Large Fine Granular Casts 0 - 2 Urine Other Uyeast Ur Random Creatinine Ur Random Sodium Ur Random Urea Nitrogn Urine Microalbumin 04/10/17 04/10/17 04/10/17 07:25 08:30 08:30 WBC 4.7 D RBC 3.62 Hgb 12.4 Hct 36.4 MCV 100.6 MCH 34.3 MCHC 34.1 RDW 12.9 Plt Count 133 MPV 9.2 PT INR APTT Sodium Potassium Chloride Carbon Dioxide Anion Gap BUN Creatinine Est GFR ( Amer) Est GFR (Non-Af Amer) POC Glucose (mg/dL) 179 H Random Glucose Hemoglobin A1c 6.1 Calcium Phosphorus Magnesium Total Bilirubin AST ALT Alkaline Phosphatase Total Protein Albumin Globulin Albumin/Globulin Ratio Urine Color Urine Appearance Urine pH Ur Specific Paicines Urine Protein Urine Glucose (UA) Urine Ketones Urine Blood Urine Nitrate Urine Bilirubin Urine Urobilinogen Ur Leukocyte Esterase Urine RBC Urine WBC Ur Epithelial Cells Amorphous Sediment Urine Bacteria Fine Granular Casts Urine Other Ur Random Creatinine Ur Random Sodium Ur Random Urea Nitrogn Urine Microalbumin 04/10/17 04/10/17 04/10/17 08:30 11:58 12:00 WBC RBC Hgb Hct MCV MCH MCHC RDW Plt Count MPV PT INR APTT Sodium 135 Potassium 3.9 Chloride 92 L Carbon Dioxide 35 H Anion Gap 12 BUN 62 H Creatinine 1.6 H Est GFR ( Amer) 39 Est GFR (Non-Af Amer) 32 POC Glucose (mg/dL) 242 H Random Glucose 175 H Hemoglobin A1c Calcium 9.3 Phosphorus 4.6 H Magnesium 2.2 Total Bilirubin 0.8 AST 32 ALT 56 Alkaline Phosphatase 61 Total Protein 6.4 Albumin 3.8 Globulin 2.6 Albumin/Globulin Ratio 1.5 Urine Color Urine Appearance Urine pH Ur Specific Paicines Urine Protein Urine Glucose (UA) Urine Ketones Urine Blood Urine Nitrate Urine Bilirubin Urine Urobilinogen Ur Leukocyte Esterase Urine RBC Urine WBC Ur Epithelial Cells Amorphous Sediment Urine Bacteria Fine Granular Casts Urine Other Ur Random Creatinine 57 Ur Random Sodium Ur Random Urea Nitrogn Urine Microalbumin 04/10/17 04/10/17 04/10/17 12:00 12:00 12:22 WBC RBC Hgb Hct MCV MCH MCHC RDW Plt Count MPV PT INR APTT Sodium Potassium Chloride Carbon Dioxide Anion Gap BUN Creatinine Est GFR ( Amer) Est GFR (Non-Af Amer) POC Glucose (mg/dL) Random Glucose Hemoglobin A1c Calcium Phosphorus Magnesium Total Bilirubin AST ALT Alkaline Phosphatase Total Protein Albumin Globulin Albumin/Globulin Ratio Urine Color Urine Appearance Urine pH Ur Specific Paicines Urine Protein Urine Glucose (UA) Urine Ketones Urine Blood Urine Nitrate Urine Bilirubin Urine Urobilinogen Ur Leukocyte Esterase Urine RBC Urine WBC Ur Epithelial Cells Amorphous Sediment Urine Bacteria Fine Granular Casts Urine Other Ur Random Creatinine Ur Random Sodium 60 Ur Random Urea Nitrogn 513 Urine Microalbumin 17.7 H 04/10/17 04/10/17 12:22 17:01 WBC RBC Hgb Hct MCV MCH MCHC RDW Plt Count MPV PT INR APTT Sodium Potassium Chloride Carbon Dioxide Anion Gap BUN Creatinine Est GFR ( Amer) Est GFR (Non-Af Amer) POC Glucose (mg/dL) 199 H Random Glucose Hemoglobin A1c Calcium Phosphorus Magnesium Total Bilirubin AST ALT Alkaline Phosphatase Total Protein Albumin Globulin Albumin/Globulin Ratio Urine Color Yellow Urine Appearance Sl cloudy Urine pH 6.0 Ur Specific Paicines 1.010 Urine Protein Negative Urine Glucose (UA) Negative Urine Ketones Negative Urine Blood Trace-intact H Urine Nitrate Negative Urine Bilirubin Negative Urine Urobilinogen 0.2 Ur Leukocyte Esterase Small H Urine RBC 1 - 3 Urine WBC 5 - 10 Ur Epithelial Cells 3 - 4 Amorphous Sediment Urine Bacteria Many Fine Granular Casts Urine Other Uyeast Ur Random Creatinine Ur Random Sodium Ur Random Urea Nitrogn Urine Microalbumin
[2017-04-09] MEDS ORDERED: Insulin Detemir 100 units/ml Vial (Levemir) SC SCH (22:00)
[2017-04-09] MEDS: Insulin Lispro (humaLOG) MEDIUM Coverage SC SCH (23:00)
[2017-04-10] MEDS ORDERED: Albuterol-Ipratrop 3 mg / 0.5 (3 ml) UD IH STA (00:09)
[2017-04-10] MEDS: Pantoprazole 40 mg EC Tab PO SCH (06:22)
--- NOTE | 2017-04-10 08:15 | RAD ---
HISTORY: CHF COMPARISON: 10/18/2016 FINDINGS: LUNGS: No active pulmonary disease. PLEURA: No significant pleural effusion identified, no pneumothorax apparent. CARDIOVASCULAR: Cardiomegaly. Sternotomy wires. OSSEOUS STRUCTURES: No significant abnormalities. VISUALIZED UPPER ABDOMEN: Normal. OTHER FINDINGS: None. IMPRESSION: No active disease.
[2017-04-10] MEDS: Insulin Lispro (humaLOG) MEDIUM Coverage SC SCH ×4 (08:29→22:09)
[2017-04-10 08:44] LABS: HEMATOCRIT 36.4 % (36.0-48.0); MEAN CELL VOLUME 100.6 fl (80.0-105.0); MEAN CORPUSCULAR HEMOGLOBIN 34.3 pg (25.0-35.0); MEAN CORPUSCULAR HGB CONC 34.1 g/dl (31.0-37.0); MEAN PLATELET VOLUME 9.2 fl (7.0-11.0); RED CELL DISTRIBUTION WIDTH 12.9 % (11.5-14.5); WHITE BLOOD COUNT 4.7 10^3/ul (4.5-11.0)
[2017-04-10 08:59] LABS: ALB/GLOB RATIO 1.5 (1.1-1.8); BILIRUBIN,TOTAL 0.8 mg/dL (0.2-1.3); CALCIUM 9.3 mg/dL (8.4-10.5); MAGNESIUM 2.2 mg/dL (1.7-2.2); PHOSPHOROUS 4.6 mg/dL (2.5-4.5); POTASSIUM 3.9 mmol/L (3.6-5.0); TOTAL PROTEIN 6.4 g/dL (5.8-8.3)
[2017-04-10] MEDS ORDERED: Levalbuterol 0.63 MG/3 ML Inhal Soln UD IH PRN (10:17)
[2017-04-10] MEDS: Potassium Chloride 20 mEq ER Tab PO SCH (10:18)
[2017-04-10] MEDS: diltiaZEM 180 mg/24 Hours CD Cap PO SCH (10:18)
[2017-04-10] MEDS: Digoxin 125 mcg (0.125 mg) Tab PO SCH (10:19)
[2017-04-10] MEDS: Non Formulary Medication (Ranolazine [Ranexa] 500 MG) PO SCH ×2 (10:21→18:00)
[2017-04-10] MEDS: Tiotropium 18 mcg Cap For Inhalation INH SCH (10:21)
[2017-04-10] MEDS: Milrinone 20mg/100ml D5W 100 ML IV PRN (10:21)
[2017-04-10 12:42] LABS: URINE BILIRUBIN NEGATIVE (NEGATIVE); URINE BLOOD TRACE-INTACT (NEGATIVE); URINE GLUCOSE (UA) NEGATIVE (NEGATIVE); URINE KETONE NEGATIVE (NEGATIVE); URINE LEUKOCYTE ESTERASE SMALL Leu/uL (NEGATIVE); URINE PROTEIN NEGATIVE mg/dL (<30 mg/dL); URINE UROBILINOGEN 0.2 E.U./dL (<1 E.U./dL)
[2017-04-10 12:45] LABS: URINE APPEARANCE SL CLOUDY (CLEAR); URINE COLOR YELLOW (YELLOW)
[2017-04-10 12:50] LABS: URINE BACTERIA MANY (NEG)
--- NOTE | 2017-04-10 13:08 | CARD ---
APPROVED REPORT EKG Measurement Heart [id number] <Conclusion> Atrial fibrillation Anteroseptal infarct, age undetermined ST & T wave abnormality, consider inferolateral ischemia or digitalis effect Abnormal ECG
[2017-04-10] MEDS: Levalbuterol 0.63 MG/3 ML Inhal Soln UD IH SCH ×3 (13:09→21:13)
--- NOTE | 2017-04-10 19:08 | CP.PCM.CON ---
History of Present Illness - History of Present Illness History of Present Illness: 66 yo F w/ pmh of htn, dm, COPD on home O2, CAD s/p CABG, CHF w/ systolic dysfunction, presented to ED yesterday with increasing shortness of breath and leg swelling; found to have acute kidney injury, nephrology being consulted for the same; Patient reports the above symptoms have overall been going on since past few months; she has had her diuretic doses increased several times during this period and was finally on lasix 80 mg bid and metolazone qMWF; however, she notes that over past few days symptoms worsened further with decreased exercise tolerance and urine output decreasing dramatically; Patient was admitted as case of decompensated CHF; was started on IV lasix 40 mg daily; she reports marked improvement of leg swelling since yesterday and is urinating more; Review of Systems - Constitutional Constitutional: Anorexia - EENT Eyes: absent: Change in Vision Nose/Mouth/Throat: absent: Nasal Discharge, Sore Throat - Cardiovascular Cardiovascular: Dyspnea on Exertion, Edema - Respiratory Respiratory: absent: Cough - Gastrointestinal Gastrointestinal: absent: Diarrhea, Vomiting - Genitourinary Genitourinary: As Per HPI. absent: Dysuria - Musculoskeletal Additional comments: pain in legs; - Integumentary Additional comments: reddened discoloration over bilateral lower legs; - Neurological Neurological: absent: Dizziness Past Patient History - Infectious Disease Hx of Infectious Diseases: None - Tetanus Immunizations Tetanus Immunization: Up to Date - Past Medical History & Family History Pertinent Family History: Father was on dialysis; - Past Social History Smoking Status: Current Some Days Smoker - CARDIAC Hx Cardiac Disorders: Yes (Atrial fibrillation, EF40%) Hx Congestive Heart Failure: Yes Hx Hypercholesterolemia: Yes Hx Hypertension: Yes - PULMONARY Hx Chronic Obstructive Pulmonary Disease (COPD): Yes - NEUROLOGICAL Hx Neurological Disorder: Yes (Neuropathy) - HEENT Hx HEENT Problems: No Hx Blind: No Hx Cataracts: No Hx Deafness: No Hx Difficulty Chewing: No Hx Epistaxis: No Hx Glaucoma: No Hx Macular Degeneration: No - RENAL Hx Renal Failure: No - ENDOCRINE/METABOLIC Hx Diabetes Mellitus Type 2: Yes - HEMATOLOGICAL/ONCOLOGICAL Hx Blood Disorders: No Hx AIDS: No Hx Anemia: No Hx Cancer: No Hx Chemotherapy: No Hx Cirrhosis: No Hx Hemophilia: No Hx Hepatitis A: No Hx Hepatitis B: No Hx Hepatitis C: No Hx Metastesis: No Hx Shingles: No Hx Sickle Cell Disease: No Hx Unexplained Bleeding: No - INTEGUMENTARY Hx Dermatological Problems: No Hx Basil Cell: No Hx Eczema: No Hx Melanoma: No Hx Psoriasis: No Hx Squamous Cell: No - MUSCULOSKELETAL/RHEUMATOLOGICAL Hx Back Pain: Yes (Sciatic nerve) Hx Falls: No Hx Herniated Disk: Yes - GASTROINTESTINAL Hx Gastrointestinal Disorders: No Hx Colostomy: No Hx Crohn's Disease: No Hx Diverticulitis: No Hx Gall Bladder Disease: No Hx Gastroesophageal Reflux: No Hx Ileostomy: No Hx Liver Failure: No Hx Pancreatitis: No HX Swallowing Problems: No - GENITOURINARY/GYNECOLOGICAL Hx Genitourinary Disorders: No Hx Hematuria: No Hx Incontinence: No Hx Sexually Transmitted Disorders: No Hx Urinary Tract Infection: No - PSYCHIATRIC Hx Anxiety: Yes Hx Depression: Yes Hx Substance Use: No - SURGICAL HISTORY Hx Coronary Stent: Yes Hx Open Heart Surgery: Yes (CABG) - ANESTHESIA Hx Anesthesia: No Meds Allergies/Adverse Reactions: Allergies Allergy/AdvReac Type Severity Reaction Status Date / Time codeine AdvReac VOMITING Verified 04/09/17 15:35 - Medications Medications: Current Medications Aspirin (Aspirin Chewable) 81 mg PO HS ON LICENSE OF [facility] Atorvastatin Calcium (Lipitor) 40 mg PO DIN ON LICENSE OF [facility] Last Admin: 04/10/17 18:04 Dose: 40 mg Budesonide (Pulmicort Respules) 0.5 mg IH [id number] ON LICENSE OF [facility] Digoxin (Lanoxin) 0.125 mg PO DAILY ON LICENSE OF [facility] Last Admin: 04/10/17 10:19 Dose: 0.125 mg Diltiazem HCl (Cardizem Cd) 180 mg PO DAILY ON LICENSE OF [facility] Last Admin: 04/10/17 10:18 Dose: 180 mg Furosemide (Lasix) 40 mg IVP DAILY ON LICENSE OF [facility] Last Admin: 04/10/17 10:19 Dose: 40 mg Milrinone Lactate/Dextrose (Primacor 20mg/100ml D5w) 100 mls @ 6.559 mls/hr IV .[id number] PRN; Protocol; 0.2 MCG/KG/MIN PRN Reason: TITRATE PER MD ORDER Last Admin: 04/10/17 10:21 Dose: 0.2 mcg/kg/min, 6.559 mls/hr Ceftriaxone Sodium (Rocephin 1 Gram Ivpb) 1 gm in 100 mls @ 100 mls/hr IVPB DAILY ON LICENSE OF [facility] PRN Reason: Protocol Insulin Human Lispro (Humalog Med) 0 units SC ACHS VALENTINE PRN Reason: Protocol Last Admin: 04/10/17 18:04 Dose: 1 units Isosorbide Mononitrate (Imdur) 60 mg PO DAILY ON LICENSE OF [facility] Last Admin: 04/10/17 10:19 Dose: 60 mg Levalbuterol HCl (Xopenex) 0.63 mg IH [id number] ON LICENSE OF [facility] Last Admin: 04/10/17 13:09 Dose: 0.63 mg Levalbuterol HCl (Xopenex) 0.63 mg IH Q2 PRN PRN Reason: Shortness of Breath Lisinopril (Zestril) 2.5 mg PO HS ON LICENSE OF [facility] Lorazepam (Ativan) 0.5 mg PO DAILY PRN; Protocol PRN Reason: Anxiety Last Admin: 04/10/17 00:18 Dose: 0.5 mg Non-Formulary Medication (Ranolazine [Ranexa]) 500 mg PO BID ON LICENSE OF [facility] Last Admin: 04/10/17 18:00 Dose: Not Given Ondansetron HCl (Zofran Inj) 4 mg IVP Q4H PRN PRN Reason: Nausea/Vomiting Pantoprazole Sodium (Protonix Ec Tab) 40 mg PO 0600 ON LICENSE OF [facility] Last Admin: 04/10/17 06:22 Dose: 40 mg Potassium Chloride (K-Dur 20 Meq Er Tab) 20 meq PO DAILY ON LICENSE OF [facility] Last Admin: 04/10/17 10:18 Dose: 20 meq Tiotropium [place] (Spiriva) 2 mcg INH DAILY ON LICENSE OF [facility] Last Admin: 04/10/17 10:21 Dose: 2 mcg Warfarin Sodium (Coumadin) 5 mg PO 1800 ON LICENSE OF [facility] PRN Reason: Protocol Last Admin: 04/10/17 18:02 Dose: 5 mg Physical Exam - Constitutional Appears: Non-toxic, No Acute Distress - Head Exam Additional comments: cushingoid face; - Eye Exam Eye Exam: absent: Scleral icterus - ENT Exam ENT Exam: Mucous Membranes Moist - Neck Exam Neck exam: Negative for: Lymphadenopathy - Respiratory Exam Respiratory Exam: Clear to Auscultation Bilateral. absent: Rales, Rhonchi, Wheezes - Cardiovascular Exam Cardiovascular Exam: +S1, +S2 - GI/Abdominal Exam GI & Abdominal Exam: Soft. absent: Tenderness - Exam Exam: absent: Bladder Distension - Extremities Exam Additional comments: mild bilateral lower leg edema; - Psychiatric Exam Psychiatric exam: Normal Affect, Normal Mood - Skin Skin Exam: Warm Additional comments: no cyanosis; mild erythema of lower legs; Results - Vital Signs Recent Vital Signs: Last Vital Signs Temp 98.7 F 04/10/17 12:00 Pulse 80 04/10/17 14:00 Resp 18 04/10/17 12:00 BP 111/58 L 04/10/17 12:00 Pulse Ox 97 04/10/17 06:00 - Labs Result Diagrams: 04/10/17 08:30 04/10/17 08:30 Labs: Laboratory Results - last 24 hr 04/09/17 04/09/17 04/09/17 19:23 19:23 21:44 WBC RBC Hgb Hct MCV MCH MCHC RDW Plt Count MPV PT 23.7 H INR 2.19 H APTT 32.7 H Sodium Potassium Chloride Carbon Dioxide Anion Gap BUN Creatinine Est GFR ( Amer) Est GFR (Non-Af Amer) POC Glucose (mg/dL) 176 H Random Glucose Hemoglobin A1c Calcium Phosphorus Magnesium Total Bilirubin AST ALT Alkaline Phosphatase Total Protein Albumin Globulin Albumin/Globulin Ratio Urine Color Yellow Urine Appearance Clear Urine pH 6.5 Ur Specific Preston 1.010 Urine Protein Negative Urine Glucose (UA) Negative Urine Ketones Negative Urine Blood Negative Urine Nitrate Positive H Urine Bilirubin Negative Urine Urobilinogen 0.2 Ur Leukocyte Esterase Moderate H Urine RBC 0 - 2 Urine WBC 15 - 20 Ur Epithelial Cells 4 - 5 Amorphous Sediment Few Urine Bacteria Large Fine Granular Casts 0 - 2 Urine Other Uyeast Ur Random Creatinine Ur Random Sodium Ur Random Urea Nitrogn Urine Microalbumin 04/10/17 04/10/17 04/10/17 07:25 08:30 08:30 WBC 4.7 D RBC 3.62 Hgb 12.4 Hct 36.4 MCV 100.6 MCH 34.3 MCHC 34.1 RDW 12.9 Plt Count 133 MPV 9.2 PT INR APTT Sodium Potassium Chloride Carbon Dioxide Anion Gap BUN Creatinine Est GFR ( Amer) Est GFR (Non-Af Amer) POC Glucose (mg/dL) 179 H Random Glucose Hemoglobin A1c 6.1 Calcium Phosphorus Magnesium Total Bilirubin AST ALT Alkaline Phosphatase Total Protein Albumin Globulin Albumin/Globulin Ratio Urine Color Urine Appearance Urine pH Ur Specific Preston Urine Protein Urine Glucose (UA) Urine Ketones Urine Blood Urine Nitrate Urine Bilirubin Urine Urobilinogen Ur Leukocyte Esterase Urine RBC Urine WBC Ur Epithelial Cells Amorphous Sediment Urine Bacteria Fine Granular Casts Urine Other Ur Random Creatinine Ur Random Sodium Ur Random Urea Nitrogn Urine Microalbumin 04/10/17 04/10/17 04/10/17 08:30 11:58 12:00 WBC RBC Hgb Hct MCV MCH MCHC RDW Plt Count MPV PT INR APTT Sodium 135 Potassium 3.9 Chloride 92 L Carbon Dioxide 35 H Anion Gap 12 BUN 62 H Creatinine 1.6 H Est GFR ( Amer) 39 Est GFR (Non-Af Amer) 32 POC Glucose (mg/dL) 242 H Random Glucose 175 H Hemoglobin A1c Calcium 9.3 Phosphorus 4.6 H Magnesium 2.2 Total Bilirubin 0.8 AST 32 ALT 56 Alkaline Phosphatase 61 Total Protein 6.4 Albumin 3.8 Globulin 2.6 Albumin/Globulin Ratio 1.5 Urine Color Urine Appearance Urine pH Ur Specific Preston Urine Protein Urine Glucose (UA) Urine Ketones Urine Blood Urine Nitrate Urine Bilirubin Urine Urobilinogen Ur Leukocyte Esterase Urine RBC Urine WBC Ur Epithelial Cells Amorphous Sediment Urine Bacteria Fine Granular Casts Urine Other Ur Random Creatinine 57 Ur Random Sodium Ur Random Urea Nitrogn Urine Microalbumin 04/10/17 04/10/17 04/10/17 12:00 12:00 12:22 WBC RBC Hgb Hct MCV MCH MCHC RDW Plt Count MPV PT INR APTT Sodium Potassium Chloride Carbon Dioxide Anion Gap BUN Creatinine Est GFR ( Amer) Est GFR (Non-Af Amer) POC Glucose (mg/dL) Random Glucose Hemoglobin A1c Calcium Phosphorus Magnesium Total Bilirubin AST ALT Alkaline Phosphatase Total Protein Albumin Globulin Albumin/Globulin Ratio Urine Color Urine Appearance Urine pH Ur Specific Preston Urine Protein Urine Glucose (UA) Urine Ketones Urine Blood Urine Nitrate Urine Bilirubin Urine Urobilinogen Ur Leukocyte Esterase Urine RBC Urine WBC Ur Epithelial Cells Amorphous Sediment Urine Bacteria Fine Granular Casts Urine Other Ur Random Creatinine Ur Random Sodium 60 Ur Random Urea Nitrogn 513 Urine Microalbumin 17.7 H 04/10/17 04/10/17 12:22 17:01 WBC RBC Hgb Hct MCV MCH MCHC RDW Plt Count MPV PT INR APTT Sodium Potassium Chloride Carbon Dioxide Anion Gap BUN Creatinine Est GFR ( Amer) Est GFR (Non-Af Amer) POC Glucose (mg/dL) 199 H Random Glucose Hemoglobin A1c Calcium Phosphorus Magnesium Total Bilirubin AST ALT Alkaline Phosphatase Total Protein Albumin Globulin Albumin/Globulin Ratio Urine Color Yellow Urine Appearance Sl cloudy Urine pH 6.0 Ur Specific [place] 1.010 Urine Protein Negative Urine Glucose (UA) Negative Urine Ketones Negative Urine Blood Trace-intact H Urine Nitrate Negative Urine Bilirubin Negative Urine Urobilinogen 0.2 Ur Leukocyte Esterase Small H Urine RBC 1 - 3 Urine WBC 5 - 10 Ur Epithelial Cells 3 - 4 Amorphous Sediment Urine Bacteria Many Fine Granular Casts Urine Other Uyeast Ur Random Creatinine Ur Random Sodium Ur Random Urea Nitrogn Urine Microalbumin - Imaging and Cardiology Chest x-ray Status: Image reviewed by me Assessment & Plan (1) Acute renal failure Assessment and Plan: Likely pre-renal etiology but question is whether this is the result of over- diuresis or due to inadequate forward flow; patient has not had significant increase in urine output with moderate doses of IV lasix; now started on inotropic support but unclear if patient's symptoms are more related to her COPD ; -hold lisinopril -checking renal US to r/o hydro; bladder US to look for evidence of reflux nephropathy -checking random urine protein and creatinine -consider repeat echo to assess R sided heart function Status: Acute (2) CHF (congestive heart failure) Assessment and Plan: Possible CHF exacerbation; started on inotropic support although systolic function reportedly only mildly decreased on echo from earlier this year; -would avoid aggressive diuresis in setting of DELMY -strict I/O, daily standing weights (if weights are not decreasing despite improvement in symptoms, would question how much of current symptoms actually due to CHF) Status: Acute (3) HTN (hypertension) Assessment and Plan: Low/normal BP; coreg currently being held; on imdur, diltiazem and lasix; holding lisinopril in setting of DELMY; Status: Chronic (4) UTI (urinary tract infection) Assessment and Plan: On ceftriaxone, no renal dose adjustment needed; Status: Acute
[2017-04-10] MEDS: Budesonide 0.5 mg/2 ml Inhal Susp UD IH SCH ×2 (19:43→21:12)
--- NOTE | 2017-04-10 20:41 | CON ---
DATE: 04/10/2017 HISTORY OF PRESENT ILLNESS: The patient is a 65-year-old female, with past medical history significant for chronic obstructive pulmonary disease, chronic atrial fibrillation, congestive heart failure in the past, diabetes mellitus, coronary artery disease, status post open heart surgery in the past, who presents to [facility] with main complaints of increasing shortness of breath at rest and dyspnea on exertion for the past four days. The patient also admits to a minimal cough with occasional sputum production. There is no history of chest pain, coughing up of blood, or chest pain - made worse with deep respirations. There is no history of temperatures, chills, or infectious exposure. There is no history of night sweats, weight loss or appetite change prior to the above events. No history of leg or calf pains. No history of syncope or diaphoresis. No history of recent travel or trauma. REVIEW OF SYSTEMS: No history of nausea, vomiting, or diarrhea. No acute urinary symptoms. No new neurologic or musculoskeletal complaints. Rest of the review of system is negative. ALLERGIES: CODEINE. SOCIAL HISTORY: Positive for tobacco and negative for alcohol. FAMILY HISTORY: No inheritable diseases. HOME MEDICATIONS: Include Zestril, Lasix, isosorbide, mononitrate, warfarin, Coreg, Lenoxin, Spiriva, Levemir, diltiazem, Ranexa, Ativan, Pulmicort, and Lipitor. PHYSICAL EXAMINATION: GENERAL: The patient is not short of breath at the present time. She is not using sensory muscles for breathing. VITAL SIGNS: Temperature 98.3, pulse on the monitor is 86, respiratory rate 18. blood pressure 91/67. oxygen saturation on nasal cannula is 97%. HEENT: Normocephalic and atraumatic. No JVD. CARDIOVASCULAR: Systolic ejection murmur at the lower left sternal border. Questionable S3 gallop. LUNGS: Decreased breath sounds at the basis with minimal crackles. Minimal bilateral rhonchi. No wheezing. EXTREMITIES: Positive for edema. No cyanosis. No clubbing. Calves are nontender to palpation. GASTROINTESTINAL: Abdomen is soft, nontender, and nondistended. Bowel sounds are positive. SKIN: No acute rash. NEUROLOGIC: Limited at the present time. PERTINENT LABORATORY DATA: Chest x-ray was done yesterday and reviewed. There is a mild increase in the pulmonary vascular congestive changes seen. CBC: White count 4.7, hemoglobin 12.4, hematocrit 36.4, platelets are 133. INR 2.19. Complete metabolic profile: Chloride 92, carbon dioxide 35, BUN 62, creatinine 1.6, glucose 175, and phosphorous 4.6. Rest of the metabolic profile was within normal limits. B type natriuretic peptid done yesterday - 1610. IMPRESSION: 1. Acute, mild congestive heart failure. 2. Mild bronchitis. 3. Chronic obstructive pulmonary disease. 4. Coronary artery disease. 5. Renal insufficiency. PLAN: The patient presents to [facility] with a four-day history of worsening pulmonary symptoms. I did review the chest x-ray as above. The x-ray does reveal a mild increase in the pulmonary vascular congestive changes. I have also reviewed the laboratory data. There is a mild increase in the B type natriuretic peptide noted. Cardiology evaluation with Dr. Santana has been ordered. The patient is on Lasix/after load reduction. The patient is also on a milrinone drip. On physical exam, mild bronchospasm is noted. In addition, the oxygen saturation on nasal cannula is 97%. I will start Xopenex nebulizer treatments and inhaled Pulmicort. The patient is also on daily Spiriva. The patient does feel better this morning, and is clinically improved - compared to the past few days. Additional pulmonary intervention will be placed on the clinical status of the patient. I did discuss the above with Dr. Johnson at length. Thank you very much for this pulmonary consultation. Natan Valle MD [facility]
[2017-04-10] MEDS ORDERED: cefTRIAXone 1 gm 1 GM/100 ML BAG IVPB SCH (20:44)
--- NOTE | 2017-04-10 21:47 | CP.PCM.PN ---
<Janay Caba - Last Filed: 04/10/17 21:43> Subjective - Date & Time of Evaluation Date of Evaluation: 04/10/17 Time of Evaluation: 10:00 - Subjective Subjective: Patient has been seen and examined at bedside today. She reports no major improvement of her SOB even with 2L NC O2. She also complains of slight numbness and a flushing feeling in her leg as she stands up. She denies any CP, Dizziness, Abdominal pain, N/V/D/Constipation, or changes in urination. Objective - Vital Signs/Intake and Output Vital Signs (last 24 hours): Temp Pulse Resp BP Pulse Ox 98.7 F 80 18 111/58 L 97 04/10/17 12:00 04/10/17 18:00 04/10/17 12:00 04/10/17 12:00 04/10/17 06:00 - Medications Medications: Current Medications Aspirin (Aspirin Chewable) 81 mg PO HS [facility] Atorvastatin Calcium (Lipitor) 40 mg PO DIN [facility] Last Admin: 04/10/17 18:04 Dose: 40 mg Budesonide (Pulmicort Respules) 0.5 mg IH [id number] [facility] Last Admin: 04/10/17 21:12 Dose: 0.5 mg Digoxin (Lanoxin) 0.125 mg PO DAILY [facility] Last Admin: 04/10/17 10:19 Dose: 0.125 mg Diltiazem HCl (Cardizem Cd) 180 mg PO DAILY [facility] Last Admin: 04/10/17 10:18 Dose: 180 mg Furosemide (Lasix) 40 mg IVP DAILY [facility] Last Admin: 04/10/17 10:19 Dose: 40 mg Milrinone Lactate/Dextrose (Primacor 20mg/100ml D5w) 100 mls @ 6.559 mls/hr IV .[id number] PRN; Protocol; 0.2 MCG/KG/MIN PRN Reason: TITRATE PER MD ORDER Last Admin: 04/10/17 10:21 Dose: 0.2 mcg/kg/min, 6.559 mls/hr Ceftriaxone Sodium (Rocephin 1 Gram Ivpb) 1 gm in 100 mls @ 100 mls/hr IVPB DAILY [facility] PRN Reason: Protocol Insulin Human Lispro (Humalog Med) 0 units SC ACHS [facility] PRN Reason: Protocol Last Admin: 04/10/17 18:04 Dose: 1 units Isosorbide Mononitrate (Imdur) 60 mg PO DAILY [facility] Last Admin: 04/10/17 10:19 Dose: 60 mg Levalbuterol HCl (Xopenex) 0.63 mg IH [id number] [facility] Last Admin: 04/10/17 21:13 Dose: 0.63 mg Levalbuterol HCl (Xopenex) 0.63 mg IH Q2 PRN PRN Reason: Shortness of Breath Lisinopril (Zestril) 2.5 mg PO [facility] Lorazepam (Ativan) 0.5 mg PO DAILY PRN; Protocol PRN Reason: Anxiety Last Admin: 04/10/17 00:18 Dose: 0.5 mg Non-Formulary Medication (Ranolazine [Ranexa]) 500 mg PO BID [facility] Last Admin: 04/10/17 18:00 Dose: Not Given Ondansetron HCl (Zofran Inj) 4 mg IVP Q4H PRN PRN Reason: Nausea/Vomiting Pantoprazole Sodium (Protonix Ec Tab) 40 mg PO 0600 [facility] Last Admin: 04/10/17 06:22 Dose: 40 mg Potassium Chloride (K-Dur 20 Meq Er Tab) 20 meq PO DAILY [facility] Last Admin: 04/10/17 10:18 Dose: 20 meq Tiotropium [place] (Spiriva) 2 mcg INH DAILY [facility] Last Admin: 04/10/17 10:21 Dose: 2 mcg Warfarin Sodium (Coumadin) 5 mg PO 1800 [facility] PRN Reason: Protocol Last Admin: 04/10/17 18:02 Dose: 5 mg - Labs Labs: 04/10/17 08:30 04/10/17 08:30 PT 23.7 Seconds (9.9-11.8) H 04/09/17 19:23 INR 2.19 (0.93-1.08) H 04/09/17 19:23 APTT 32.7 Seconds (23.7-30.8) H 04/09/17 19:23 - Constitutional Appears: No Acute Distress - Head Exam Head Exam: ATRAUMATIC, NORMAL INSPECTION - Eye Exam Eye Exam: Normal appearance - Respiratory Exam Respiratory Exam: Decreased Breath Sounds, Clear to Ausculation Bilateral - Cardiovascular Exam Cardiovascular Exam: +S1, +S2 Additional comments: +S3 - GI/Abdominal Exam GI & Abdominal Exam: Distended, Soft. absent: Firm, Tenderness - Extremities Exam Extremities Exam: Pedal Edema, Tenderness - Neurological Exam Neurological Exam: Alert, Awake, Oriented x3 - Psychiatric Exam Psychiatric exam: Anxious - Skin Additional comments: b/l lower extremity erythema. Warm to palpation. - Additional Findings Additional findings: Conversational dyspnea. Assessment and Plan - Assessment and Plan (Free Text) Assessment: 65 y/o F with PMH of A-fib, COPD, CHF with EF of 40%, DM, CAD s/p CABG, NH, HTN , HLD, and Anxiety presents with CHF exacerbation vs COPD exacerbation and UTI. Pt with similar complaints on previous admission in September. Plan: 1. SOB 2/2 CHF exacerbation vs COPD exacerbation or both. Lasix 40 mg IV daily Recent echo 40% Strict I's and O's Daily weights Cardiology Consult, Dr. Santana-recs appreciated Started on Milrinone per cardiology Consider Repeat Echo Pulm consulted (Dr. Valle) recs appreciated Started on Budeniside and Xopenex per Pulm 2. B/L Lower extremity erythema 2/2 possible cellulitis -On Rocephin for UTI, will cont. 3. UTI Rocephin Urine culture 4. DELMY -likely pre-renal etiology due to over-diuresis or inadequate forward flow. -Per Nephro Hold lisnopril, renal US to r/o hydro; bladder US to look for evidence of reflux nephropathy, random urine protein and creatinine. -Monitor 5. A-fib Rate controlled Continue Warfarin Monitor INR daily 6. DM ISS [id number] 7. HTN Hold BP meds at this time 8. PPX Warfarin Protonix Zofran Patient seen, examined, and discussed with Attending Janay Caba PGY-1 <Shanell Johnson - Last Filed: 04/11/17 17:16> Objective - Vital Signs/Intake and Output Vital Signs (last 24 hours): Temp Pulse Resp BP Pulse Ox 97.1 F L 86 18 147/71 95 04/11/17 12:00 04/11/17 14:00 04/11/17 12:00 04/11/17 12:00 04/11/17 05:47 Intake and Output: 04/11/17 04/11/17 06:59 18:59 Intake Total 340 100 Output Total 950 Balance -610 100 - Medications Medications: Current Medications Acetaminophen (Tylenol 325mg Tab) 650 mg PO Q6H PRN PRN Reason: Pain Aspirin (Aspirin Chewable) 81 mg PO HS [facility] Last Admin: 04/10/17 22:09 Dose: 81 mg Atorvastatin Calcium (Lipitor) 40 mg PO DIN [facility] Last Admin: 04/11/17 16:38 Dose: 40 mg Budesonide (Pulmicort Respules) 0.5 mg IH [id number] [facility] Last Admin: 04/11/17 08:12 Dose: 0.5 mg Digoxin (Lanoxin) 0.125 mg PO DAILY [facility] Last Admin: 04/11/17 10:22 Dose: 0.125 mg Diltiazem HCl (Cardizem Cd) 180 mg PO DAILY [facility] Last Admin: 04/11/17 10:21 Dose: 180 mg Furosemide (Lasix) 40 mg IVP DAILY [facility] Last Admin: 04/11/17 10:22 Dose: 40 mg Milrinone Lactate/Dextrose (Primacor 20mg/100ml D5w) 100 mls @ 6.559 mls/hr IV .[id number] PRN; Protocol; 0.2 MCG/KG/MIN PRN Reason: TITRATE PER MD ORDER Last Admin: 04/11/17 12:22 Dose: 0.2 mcg/kg/min, 6.559 mls/hr Ceftriaxone Sodium (Rocephin 1 Gram Ivpb) 1 gm in 100 mls @ 100 mls/hr IVPB DAILY [facility] PRN Reason: Protocol Last Admin: 04/11/17 13:23 Dose: 100 mls/hr Insulin Human Lispro (Humalog Med) 0 units SC ACHS [facility] PRN Reason: Protocol Last Admin: 04/11/17 16:37 Dose: 5 units Isosorbide Mononitrate (Imdur) 60 mg PO DAILY [facility] Last Admin: 04/11/17 10:22 Dose: 60 mg Levalbuterol HCl (Xopenex) 0.63 mg IH [id number] [facility] Last Admin: 04/11/17 13:36 Dose: 0.63 mg Levalbuterol HCl (Xopenex) 0.63 mg IH Q2 PRN PRN Reason: Shortness of Breath Lisinopril (Zestril) 2.5 mg PO HS [facility] Lorazepam (Ativan) 0.5 mg PO DAILY PRN; Protocol PRN Reason: Anxiety Last Admin: 04/11/17 00:25 Dose: 0.5 mg Non-Formulary Medication (Ranolazine [Ranexa]) 500 mg PO BID [facility] Last Admin: 04/11/17 10:23 Dose: Not Given Ondansetron HCl (Zofran Inj) 4 mg IVP Q4H PRN PRN Reason: Nausea/Vomiting Pantoprazole Sodium (Protonix Ec Tab) 40 mg PO 0600 [facility] Last Admin: 04/11/17 05:14 Dose: 40 mg Potassium Chloride (K-Dur 20 Meq Er Tab) 20 meq PO DAILY [facility] Last Admin: 04/11/17 10:22 Dose: 20 meq Tiotropium [place] (Spiriva) 2 mcg INH DAILY [facility] Last Admin: 04/11/17 10:23 Dose: 0.1 mcg Warfarin Sodium (Coumadin) 7.5 mg PO ONCE ONE PRN Reason: Protocol Stop: 04/11/17 18:01 Last Admin: 04/11/17 17:06 Dose: 7.5 mg Warfarin Sodium (Coumadin) 5 mg PO 1800 [facility] PRN Reason: Protocol - Labs Labs: 04/11/17 07:00 04/11/17 07:00 PT 18.5 Seconds (9.9-11.8) H 04/11/17 07:00 INR 1.71 (0.93-1.08) H 04/11/17 07:00 APTT 32.7 Seconds (23.7-30.8) H 04/09/17 19:23 Attending/Attestation - Attestation I have personally seen and examined this patient.: Yes I have fully participated in the care of the patient.: Yes I have reviewed all pertinent clinical information, including history, physical exam and plan: Yes Notes (Text): 04/11/17 17:13 Attending note; Patient seen and examined with resident. Patient is a 66-year-old female admitted with acute CHF exacerbation. Patient was on IV Lasix and metolazone at home. Started on IV milrinone. Case discussed with cardiology Dr. Santana in detail. Strict input and output ordered. Daily weight ordered. Lower extremity erythema; Doppler is negative for DVT. Started on IV Rocephin. COPD; continue oxygen nasal cannula. Oxygen dependent. Pulmonary evaluation requested. Continue Xopenex and budesonide. Upon discharge the patient will follow-up with PMD Dr. Yee. 04/11/17 17:15
[2017-04-11] MEDS: Milrinone 20mg/100ml D5W 100 ML IV PRN ×2 (00:47→12:22)
--- NOTE | 2017-04-11 01:03 | CON ---
CONSULT DATE: 04/10/2017 CONSULT SERVICE: Cardiology. REASON FOR CONSULTATION: Acute decompensated congestive heart failure, cardiac evaluation, history of CABG. BRIEF CLINICAL HISTORY: This is a 66-year-old morbidly obese female with history of COPD; active tobacco abuse; history of CAD, status post coronary artery bypass surgery, 10/18/2010 at [facility]; and history of paroxysmal atrial fibrillation. After last catheterization, a redo CABG was recommended, the patient opted for medical treatment. Admitted with decompensated congestive heart failure. Denies any chest pain, but complained of abdominal pain, nausea, and loss of appetite. PAST MEDICAL HISTORY: Significant for coronary artery disease, status post coronary artery bypass surgery, 10/18/2010 at [facility], history of COPD, diabetes, hypertension, hyperlipidemia, history of paroxysmal atrial fibrillation, had a ANDRE cardioversion before [facility] filled ANDRE cardioversion. PREVIOUS CARDIAC WORKUP: As follows; the patient had open heart surgery, possible at [facility], initially said that [facility], but possibly at the [facility]. The patient had open heart surgery at [facility]; last echo at [facility] was done. Last catheterization was done at [facility] on 02/25/2016 by me when the patient presented with a non-STEMI. Cardiac catheterization revealed [place] triple-vessel disease in a right-sided dominant system. Left main 30% stenosis bifurcate LAD and circumflex. LAD is 90% proximal segment stenosis and completely occluded of LAD after first septal desk pen set assembler. Circumflex of large caliber vessels and diffusely disease noted. Multiple stenosis noted in the mid and distal segment. A ramus intermedius 100% stenosis noted, right coronary artery, 100% stenosis noted in the proximal segment. Graft as follows; a left internal mammary to mid LAD is patent, but after anastomotic LAD occluded, it fills retrograde LAD, diagonal septal desk pen set assembler, SVG to OM1 and OM2 cannot be cannulated, presumably occluded. LV ejection fraction 35%. EDP with a range of 18. No gradient across the aortic valve noted. In summary, [place] triple-vessel disease presumably occluded SVG to OM1 and OM2. RITTER has patent LAD, but diffusely diseased and distal LAD occluded and fills retrograde septal desk pen set assembler and diagonal one. Circumflex with collaterals to RCA, ejection fraction 35% to 40%, EDP was in the range of 18. Dated 02/25/2016, at that time recommendation was made smoking cessation, emphasis on weight reduction, aggressive medical treatment and redo CABG was suggested. The patient refused redo CABG, so suggested Ranexa 500 b.i.d., high doses of Lipitor, aspirin, modification of lifestyle, modification risk factor and complete cessation of smoking, follow up MUGA scans in 3 to 6 months, and if she remains below 35% consider AICD. Continue digoxin, diuretic, and OSCAR inhibitors. She is admitted with decompensated congestive heart failure. Last echo here in 02/23/2016, at [facility] with an ejection fraction of 35%, mild MR, [id number] TR and RV systolic pressure of 39. History of paroxysmal atrial fibrillation. Then, the patient has had a repeat echocardiography 10/19/2016, it shows an ejection fraction of 45% to 50%, [id number] hypokinesis, the apical wall with a trace aortic regurgitation. The patient had atrial fibrillation at that time, [id number] mitral regurgitation, [id number] tricuspid regurgitation, RV systolic pressure of 27, dated 10/19/2016. REVIEW OF SYSTEMS: As per HPI. CURRENT MEDICATIONS: The patient is taking Cardizem 180 mg, Coumadin 5 mg, Spiriva 2 puffs, Ranexa 500 b.i.d., potassium chloride, lisinopril 2.5, lorazepam, isosorbide 60, Coreg 25, atorvastatin 40, and aspirin 81 mg daily. ALLERGIES: CODEINE. PHYSICAL EXAMINATION: As follows, VITAL SIGNS: Temperature afebrile, heart rate 78, blood pressure 106/62. HEENT: PERRLA. Extraocular muscles intact. NECK: Supple. No carotid bruits or thyromegaly. CHEST: Clear to auscultation. HEART: S1 and S2 regular. ABDOMEN: Soft. EXTREMITIES: Clubbing and cyanosis negative. LABORATORY DATA: Blood workup as follows; WBC is 4.3, hemoglobin 12.4, hematocrit 36.4, and platelet count 133. Chemistry showed sodium 135, potassium 3.9, chloride 92, carbon dioxide of 35, anion gap of 62, BUN 12, and creatinine 1.6. IMPRESSION: 1. Acute decompensated congestive heart failure secondary to systolic dysfunction. 2. Coronary artery disease, status post coronary artery bypass graft on 10/19/2011 at [facility]; last catheterization at 02/25/2016 shows only patent left internal mammary artery to left anterior descending artery and distal left anterior descending artery occluded. Retrograde fills diagonal septal desk pen set assembler, occluded SVG, occluded SVG to OM1, occluded SVG to OM2, cardiomyopathy, ischemic, obesity, diabetes, hypertension, hyperlipidemia. Last echocardiogram showed ejection fraction of 40% to 45%, renal insufficiency, and morbid obesity. RECOMMENDATIONS: Monitor renal function. Continue aggressive diuresis. We will start Primacor low doses and continue to diurese. We will get the MUGA scan at this time. The options are limited either redo CABG or because of comorbidity, morbid obesity suggests aggressive medical treatment. Monitor LV function closely. We will follow with you. Thank you Dr. Yee/Dr. Johnson for providing us the opportunity in taking care of the patient, Skyla Bright. In the interim, continue beta-rich, continue anticoagulation for atrial fibrillation. Continue digoxin. Continue diuretic. We will start Primacor, monitor renal function, continue isosorbide nitrate as Ranexa is nonformulary. Once the patient goes home, we will resume back Ranexa and also suggest to start Entresto as an outpatient. Entresto is also a nonformulary and we will follow with you. We will discontinue the lisinopril before the patient goes home and start Entresto. Je Santana MD
[2017-04-11] MEDS: Levalbuterol 0.63 MG/3 ML Inhal Soln UD IH SCH ×4 (01:43→20:40)
[2017-04-11] MEDS: Pantoprazole 40 mg EC Tab PO SCH (05:14)
[2017-04-11 05:36] LABS: CREATININE, RANDOM URINE 60 mg/dL (20-320)
[2017-04-11 07:25] LABS: HEMATOCRIT 35.1 % (36.0-48.0); MEAN CELL VOLUME 98.6 fl (80.0-105.0); MEAN CORPUSCULAR HEMOGLOBIN 34.3 pg (25.0-35.0); MEAN CORPUSCULAR HGB CONC 34.8 g/dl (31.0-37.0); MEAN PLATELET VOLUME 9.3 fl (7.0-11.0); RED CELL DISTRIBUTION WIDTH 12.5 % (11.5-14.5); WHITE BLOOD COUNT 4.8 10^3/ul (4.5-11.0)
[2017-04-11 07:34] LABS: INR 1.71 (0.93-1.08)
[2017-04-11 07:37] LABS: BILIRUBIN,TOTAL 0.9 mg/dL (0.2-1.3); CALCIUM 8.9 mg/dL (8.4-10.5); POTASSIUM 3.9 mmol/L (3.6-5.0)
[2017-04-11 07:49] LABS: ALB/GLOB RATIO 1.4 (1.1-1.8); TOTAL PROTEIN 6.5 g/dL (5.8-8.3)
[2017-04-11] MEDS: Insulin Lispro (humaLOG) MEDIUM Coverage SC SCH ×4 (07:50→22:06)
[2017-04-11] MEDS: Budesonide 0.5 mg/2 ml Inhal Susp UD IH SCH ×2 (08:12→20:40)
--- NOTE | 2017-04-11 08:50 | US ---
EXAM: US Pelvis limited, Transabdominal, evaluation of the urinary bladder. CLINICAL HISTORY: 66 years old, female; Signs and symptoms; Bladder; Urine retention; Additional info: Please check post void residual volume TECHNIQUE: Real-time transabdominal pelvic ultrasound limited with image documentation. COMPARISON: No relevant prior studies available. FINDINGS: Bladder: Prevoid bladder volume is 343 mL.. Post void bladder volume is 99 mL. Images of the urinary bladder are unremarkable. IMPRESSION: 1. Prevoid bladder volume is 343 mL.. 2. Post void bladder volume is 99 mL.
--- NOTE | 2017-04-11 09:07 | PN ---
DATE: 04/11/2017 SUBJECTIVE: The patient appears comfortable this morning. She is not short of breath at rest. PHYSICAL EXAMINATION VITAL SIGNS: Temperature is 98.5, pulse is 81, respirations are 18/20, blood pressure of 132/67, and oxygen saturation on nasal cannula is 95%. HEENT: Normocephalic and atraumatic. No JVD. CARDIOVASCULAR: Systolic ejection murmur at the lower left sternal border. Questionable S3 gallop. LUNGS: Decreased breath sounds at the bases with less crackles. Much less rhonchi. No wheezing. EXTREMITIES: Positive for edema. No cyanosis. No clubbing. Calves are nontender to palpation. GASTROINTESTINAL: Abdomen is soft, nontender, and nondistended. Bowel sounds are positive. SKIN: No acute rash. NEUROLOGIC: Limited at the present time. IMPRESSION: 1. Acute mild congestive heart failure. 2. Mild bronchitis. 3. Chronic obstructive pulmonary disease. 4. Coronary artery disease. 5. Renal insufficiency. PLAN: The patient appears comfortable this morning. She is not short of breath at rest, and she states she is feeling better overall. On physical exam, there is certainly less bronchospasm noted. In addition, the oxygen saturation on nasal cannula remains 95% to 97%. I will continue the current nebulizer treatments and inhaled steroids for now. Cardiology evaluation is noted. The patient remains on a milrinone drip, as well as intravenous Lasix. Clinical status is improved. I would continue with the physical therapy input. I will discuss the above with the attending physician. Natan Valle MD HÉCTOR
--- NOTE | 2017-04-11 09:25 | US ---
Renal ultrasound History: Acute renal failure. Comparison: None available. Technique: Real-time sonography was performed through the kidneys. Findings: Right kidney: 12.9 x 4.8 x 5.5 centimeters. Increased echogenicity of the renal cortex suggestive for medical renal disease. Upper pole hypoechoic cyst measuring 9 x 5 x 12 millimeters. No calculi or hydronephrosis. Left Kidney: 12.1 x 4.7 x 5.2 centimeters. Increased echogenicity of the renal cortex suggestive for medical renal disease. Upper pole hypoechoic cyst measuring 9 x 4 x 6 millimeters. No calculi or hydronephrosis. Impression: Increased echogenicity of the bilateral renal cortices suggestive for medical renal disease. Upper pole hypoechoic bilateral renal cysts.
[2017-04-11] MEDS: diltiaZEM 180 mg/24 Hours CD Cap PO SCH (10:21)
[2017-04-11] MEDS: Potassium Chloride 20 mEq ER Tab PO SCH (10:22)
[2017-04-11] MEDS: Digoxin 125 mcg (0.125 mg) Tab PO SCH (10:22)
[2017-04-11] MEDS: Non Formulary Medication (Ranolazine [Ranexa] 500 MG) PO SCH (10:23)
[2017-04-11] MEDS: Tiotropium 18 mcg Cap For Inhalation INH SCH (10:23)
--- NOTE | 2017-04-11 11:57 | PN ---
DATE: 04/11/2017 REASON FOR CONSULTATION: Followup acute decompensated congestive heart failure, cardiac evaluation, history of CABG. SUBJECTIVE: The patient feels a little better, but complained of pain in the hip shooting to her leg. Denies any chest pain. Shortness of breath is a little bit improved. OBJECTIVE: GENERAL: Sitting at the bed, not in apparent distress. VITAL SIGNS: Temperature afebrile, heart rate 81, blood pressure 132/67. HEENT: PERRLA. Extraocular muscles intact. NECK: Supple. No carotid bruits or thyromegaly. CHEST: Clear to auscultation. HEART: S1 and S2 regular. ABDOMEN: Soft. EXTREMITIES: Clubbing and cyanosis negative. LABORATORY DATA: Blood workup as follows: WBC 4.8, hemoglobin 12.1, hematocrit 35.1, platelet count 138. Chemistry: Shows sodium of 130, potassium of 3.9, chloride of 93, carbon dioxide of 37, anion gap of 10, BUN of 16, and creatinine 1.4. ASSESSMENT AND PLAN: A [id number] with morbid obesity and acute congestive heart failure, history of chronic atrial fibrillation, history of coronary artery bypass surgery on 10/18/2010 at [facility], failed transesophageal echocardiography cardioversion at [facility], history of hypertension, hyperlipidemia, admitted with decompensated congestive heart failure, last catheterization at [facility] by me on 02/25/2016 showed occluded old graft, patent left internal mammary artery, but distal left anterior descending artery totally occluded fills retrograde at diagonal and septal color printer operator. Re-do coronary artery bypass graft offered. The patient does not want re-do coronary artery bypass graft, opted for medical treatment. Ejection fraction 35%, EP was in the range of 18. Last echocardiogram 02/21/2017 at [facility] ejection fraction of 35%, mild mitral regurgitation and mild tricuspid regurgitation. Repeat echocardiogram on 10/19/2016 showed ejection fraction of 45% to 50%, [id number] hypokinesis of the apical wall. Trace aortic regurgitation. History of chronic atrial fibrillation, right ventricular systolic pressure of 27, dated 10/19/2016. Admitted with acute decompensated congestive heart failure, renal insufficiency. Yesterday creatinine was 1.6. The patient started on Primacor. Today, the lab showed WBC 4.8, hemoglobin 12.1, hematocrit 35.1, platelet count 138. Chemistry showed sodium 135, potassium 3.9, chloride of 93, carbon dioxide 37, anion gap of 10, BUN of 15, creatinine of 1.4. I's and O's; the patient had an almost a liter negative fluid balance. RECOMMENDATIONS: Continue Primacor for the next 24 to 48 hours. Continue Cardizem, continue Coumadin for atrial fibrillation. Keep INR between 2, we will increase to 7.5 today of Coumadin, as INR is subtherapeutic. We will give 7.5 today and then 5. Continue diuretics. Continue low dose of OSCAR inhibitors. We will get ankle-brachial index and pulse volume recording. We will increase Coumadin to 7.5 today and continue daily PT/INR and 5 mg daily from tomorrow. We will follow with you. Thank you Dr. Johnson for providing us the opportunity in taking care of Skyla Bright. Je Santana MD
[2017-04-11] MEDS: cefTRIAXone 1 gm 1 GM/100 ML BAG IVPB SCH (13:23)
--- NOTE | 2017-04-11 15:06 | CP.PCM.PN ---
<Janay Caba - Last Filed: 04/11/17 15:02> Subjective - Date & Time of Evaluation Date of Evaluation: 04/11/17 Time of Evaluation: 15:02 - Subjective Subjective: Patient has been seen and examined at bedside today. She is no longer complaining of dyspnea at rest. She also complains of slight numbness and a flushing feeling in her leg as she stands up. She states her lower extremity pain has improved. She denies any CP, Dizziness, Abdominal pain, N/V/D/ Constipation, or changes in urination. Objective - Vital Signs/Intake and Output Vital Signs (last 24 hours): Temp Pulse Resp BP Pulse Ox 97.1 F L 86 18 147/71 95 04/11/17 12:00 04/11/17 14:00 04/11/17 12:00 04/11/17 12:00 04/11/17 05:47 Intake and Output: 04/11/17 04/11/17 06:59 18:59 Intake Total 340 100 Output Total 950 Balance -610 100 - Medications Medications: Current Medications Acetaminophen (Tylenol 325mg Tab) 650 mg PO Q6H PRN PRN Reason: Pain Aspirin (Aspirin Chewable) 81 mg PO HS [facility] Last Admin: 04/10/17 22:09 Dose: 81 mg Atorvastatin Calcium (Lipitor) 40 mg PO DIN [facility] Last Admin: 04/10/17 18:04 Dose: 40 mg Budesonide (Pulmicort Respules) 0.5 mg IH [id number] [facility] Last Admin: 04/11/17 08:12 Dose: 0.5 mg Digoxin (Lanoxin) 0.125 mg PO DAILY [facility] Last Admin: 04/11/17 10:22 Dose: 0.125 mg Diltiazem HCl (Cardizem Cd) 180 mg PO DAILY [facility] Last Admin: 04/11/17 10:21 Dose: 180 mg Furosemide (Lasix) 40 mg IVP DAILY [facility] Last Admin: 04/11/17 10:22 Dose: 40 mg Milrinone Lactate/Dextrose (Primacor 20mg/100ml D5w) 100 mls @ 6.559 mls/hr IV .[id number] PRN; Protocol; 0.2 MCG/KG/MIN PRN Reason: TITRATE PER MD ORDER Last Admin: 04/11/17 12:22 Dose: 0.2 mcg/kg/min, 6.559 mls/hr Ceftriaxone Sodium (Rocephin 1 Gram Ivpb) 1 gm in 100 mls @ 100 mls/hr IVPB DAILY [facility] PRN Reason: Protocol Last Admin: 04/11/17 13:23 Dose: 100 mls/hr Insulin Human Lispro (Humalog Med) 0 units SC ACHS [facility] PRN Reason: Protocol Last Admin: 04/11/17 12:19 Dose: 7 units Isosorbide Mononitrate (Imdur) 60 mg PO DAILY [facility] Last Admin: 04/11/17 10:22 Dose: 60 mg Levalbuterol HCl (Xopenex) 0.63 mg IH [id number] [facility] Last Admin: 04/11/17 13:36 Dose: 0.63 mg Levalbuterol HCl (Xopenex) 0.63 mg IH Q2 PRN PRN Reason: Shortness of Breath Lisinopril (Zestril) 2.5 mg PO HS [facility] Lorazepam (Ativan) 0.5 mg PO DAILY PRN; Protocol PRN Reason: Anxiety Last Admin: 04/11/17 00:25 Dose: 0.5 mg Non-Formulary Medication (Ranolazine [Ranexa]) 500 mg PO BID [facility] Last Admin: 04/11/17 10:23 Dose: Not Given Ondansetron HCl (Zofran Inj) 4 mg IVP Q4H PRN PRN Reason: Nausea/Vomiting Pantoprazole Sodium (Protonix Ec Tab) 40 mg PO 0600 [facility] Last Admin: 04/11/17 05:14 Dose: 40 mg Potassium Chloride (K-Dur 20 Meq Er Tab) 20 meq PO DAILY [facility] Last Admin: 04/11/17 10:22 Dose: 20 meq Tiotropium [place] (Spiriva) 2 mcg INH DAILY [facility] Last Admin: 04/11/17 10:23 Dose: 0.1 mcg Warfarin Sodium (Coumadin) 7.5 mg PO ONCE ONE PRN Reason: Protocol Stop: 04/11/17 18:01 Warfarin Sodium (Coumadin) 5 mg PO 1800 [facility] PRN Reason: Protocol - Labs Labs: 04/11/17 07:00 04/11/17 07:00 PT 18.5 Seconds (9.9-11.8) H 04/11/17 07:00 INR 1.71 (0.93-1.08) H 04/11/17 07:00 APTT 32.7 Seconds (23.7-30.8) H 04/09/17 19:23 - Constitutional Appears: No Acute Distress, Chronically Ill - Head Exam Head Exam: ATRAUMATIC, NORMAL INSPECTION, NORMOCEPHALIC - Eye Exam Eye Exam: EOMI, Normal appearance - ENT Exam ENT Exam: Mucous Membranes Moist - Respiratory Exam Respiratory Exam: Clear to Ausculation Bilateral. absent: Rales, Rhonchi, Wheezes, Stridor - Cardiovascular Exam Cardiovascular Exam: REGULAR RHYTHM, +S1, +S2 - GI/Abdominal Exam GI & Abdominal Exam: Distended, Soft. absent: Tenderness - Extremities Exam Extremities Exam: Pedal Edema, Tenderness Additional comments: B/L lower ext. erythema - Neurological Exam Neurological Exam: Alert, Awake, Oriented x3 - Psychiatric Exam Psychiatric exam: Normal Affect, Normal Mood - Skin Skin Exam: Dry, Intact, Normal Color, Warm Assessment and Plan - Assessment and Plan (Free Text) Assessment: 65 y/o F with PMH of A-fib, COPD, CHF with EF of 40%, DM, CAD s/p CABG, NM, HTN , HLD, and Anxiety presents with CHF exacerbation vs COPD exacerbation and UTI. Pt with similar complaints on previous admission in September. Plan: 1. SOB 2/2 CHF exacerbation vs COPD exacerbation or both. Lasix 40 mg IV daily Recent echo 40% Strict I's and O's Daily weights Cardiology Consult, Dr. Santana-recs appreciated Milrinone per cardiology Pulm consulted (Dr. Valle) recs appreciated Budeniside and Xopenex per Pulm PT 2. B/L Lower extremity erythema 2/2 possible cellulitis -Rocephin 3. UTI Rocephin Urine culture 4. DELMY -likely pre-renal etiology due to over-diuresis or inadequate forward flow. -Per Nephro Hold lisnopril, renal US to r/o hydro; bladder US to look for evidence of reflux nephropathy, random urine protein and creatinine. -Monitor (Cr trending down slowly) 5. A-fib Rate controlled Continue Warfarin Monitor INR daily 6. DM ISS [id number] 7. HTN Hold BP meds at this time 8. PPX Warfarin Protonix Zofran Patient seen, examined, and discussed with Attending Janay Caba PGY-1 <Shanell Johnson - Last Filed: 04/11/17 17:19> Objective - Vital Signs/Intake and Output Vital Signs (last 24 hours): Temp Pulse Resp BP Pulse Ox 97.1 F L 86 18 147/71 95 04/11/17 12:00 04/11/17 14:00 04/11/17 12:00 04/11/17 12:00 04/11/17 05:47 Intake and Output: 04/11/17 04/11/17 06:59 18:59 Intake Total 340 100 Output Total 950 Balance -610 100 - Medications Medications: Current Medications Acetaminophen (Tylenol 325mg Tab) 650 mg PO Q6H PRN PRN Reason: Pain Aspirin (Aspirin Chewable) 81 mg PO HS [facility] Last Admin: 04/10/17 22:09 Dose: 81 mg Atorvastatin Calcium (Lipitor) 40 mg PO DIN [facility] Last Admin: 04/11/17 16:38 Dose: 40 mg Budesonide (Pulmicort Respules) 0.5 mg IH [id number] [facility] Last Admin: 04/11/17 08:12 Dose: 0.5 mg Digoxin (Lanoxin) 0.125 mg PO DAILY [facility] Last Admin: 04/11/17 10:22 Dose: 0.125 mg Diltiazem HCl (Cardizem Cd) 180 mg PO DAILY [facility] Last Admin: 04/11/17 10:21 Dose: 180 mg Furosemide (Lasix) 40 mg IVP DAILY [facility] Last Admin: 04/11/17 10:22 Dose: 40 mg Milrinone Lactate/Dextrose (Primacor 20mg/100ml D5w) 100 mls @ 6.559 mls/hr IV .[id number] PRN; Protocol; 0.2 MCG/KG/MIN PRN Reason: TITRATE PER MD ORDER Last Admin: 04/11/17 12:22 Dose: 0.2 mcg/kg/min, 6.559 mls/hr Ceftriaxone Sodium (Rocephin 1 Gram Ivpb) 1 gm in 100 mls @ 100 mls/hr IVPB DAILY [facility] PRN Reason: Protocol Last Admin: 04/11/17 13:23 Dose: 100 mls/hr Insulin Human Lispro (Humalog Med) 0 units SC ACHS [facility] PRN Reason: Protocol Last Admin: 04/11/17 16:37 Dose: 5 units Isosorbide Mononitrate (Imdur) 60 mg PO DAILY [facility] Last Admin: 04/11/17 10:22 Dose: 60 mg Levalbuterol HCl (Xopenex) 0.63 mg IH [id number] [facility] Last Admin: 04/11/17 13:36 Dose: 0.63 mg Levalbuterol HCl (Xopenex) 0.63 mg IH Q2 PRN PRN Reason: Shortness of Breath Lisinopril (Zestril) 2.5 mg PO HS [facility] Lorazepam (Ativan) 0.5 mg PO DAILY PRN; Protocol PRN Reason: Anxiety Last Admin: 04/11/17 00:25 Dose: 0.5 mg Non-Formulary Medication (Ranolazine [Ranexa]) 500 mg PO BID [facility] Last Admin: 04/11/17 10:23 Dose: Not Given Ondansetron HCl (Zofran Inj) 4 mg IVP Q4H PRN PRN Reason: Nausea/Vomiting Pantoprazole Sodium (Protonix Ec Tab) 40 mg PO 0600 [facility] Last Admin: 04/11/17 05:14 Dose: 40 mg Potassium Chloride (K-Dur 20 Meq Er Tab) 20 meq PO DAILY [facility] Last Admin: 04/11/17 10:22 Dose: 20 meq Tiotropium [place] (Spiriva) 2 mcg INH DAILY [facility] Last Admin: 04/11/17 10:23 Dose: 0.1 mcg Warfarin Sodium (Coumadin) 7.5 mg PO ONCE ONE PRN Reason: Protocol Stop: 04/11/17 18:01 Last Admin: 04/11/17 17:06 Dose: 7.5 mg Warfarin Sodium (Coumadin) 5 mg PO 1800 [facility] PRN Reason: Protocol - Labs Labs: 04/11/17 07:00 04/11/17 07:00 PT 18.5 Seconds (9.9-11.8) H 04/11/17 07:00 INR 1.71 (0.93-1.08) H 04/11/17 07:00 APTT 32.7 Seconds (23.7-30.8) H 04/09/17 19:23 Attending/Attestation - Attestation I have personally seen and examined this patient.: Yes I have fully participated in the care of the patient.: Yes I have reviewed all pertinent clinical information, including history, physical exam and plan: Yes Notes (Text): 04/11/17 17:16 Attending note; Patient seen and examined with resident. Patient is a 66-year-old female admitted with acute CHF exacerbation. Patient was on IV Lasix and metolazone at home. Started on IV milrinone. Case discussed with cardiology Dr. Santana in detail. Strict input and output ordered. Daily weight ordered. Lower extremity erythema; Doppler is negative for DVT. Started on IV Rocephin. Positive UA; follow up urine culture results. Acute kidney injury; secondary to aggressive diuresis. Creatinine is improving. Renal ultrasound showed medical renal disease. Follow-up with nephrology. A. fib; continue Coumadin. Dosage increased today. COPD; continue oxygen nasal cannula. Oxygen dependent. Pulmonary evaluation requested. Continue Xopenex and budesonide. Upon discharge the patient will follow-up with PMD Dr. Yee.
--- NOTE | 2017-04-11 18:16 | US ---
PROCEDURE: Lower extremity SKIP exam HISTORY: Peripheral vascular disease with pain and claudication. Previous smoker. Diabetes. PHYSICIAN(S): Selwyn Archer MD. FINDINGS: The exam is somewhat limited by calcified distal vessels. The right resting SKIP is normal, 0.97. The left resting ABIs not obtainable. The brachial systolic pressures are symmetric. The low thigh pressures and waveforms are relatively normal. The calf PVR waveforms augment normally. No significant gradients are noted across the thighs. The ankle and metatarsal waveforms are relatively normal and symmetric. IMPRESSION: 1. Relatively normal and symmetric PVR waveforms at all levels. 2. Limited study due to calcified vessels.
--- NOTE | 2017-04-11 20:43 | CP.PCM.PN ---
Subjective - Date & Time of Evaluation Date of Evaluation: 04/11/17 Time of Evaluation: 11:00 - Subjective Subjective: Patient reports increased shortness of breath this morning when O2 ran out; Objective - Vital Signs/Intake and Output Vital Signs (last 24 hours): Temp Pulse Resp BP Pulse Ox 97.1 F L 78 18 147/71 95 04/11/17 12:00 04/11/17 18:00 04/11/17 12:00 04/11/17 12:00 04/11/17 05:47 Intake and Output: 04/11/17 04/12/17 18:59 06:59 Intake Total 100 Balance 100 - Medications Medications: Current Medications Acetaminophen (Tylenol 325mg Tab) 650 mg PO Q6H PRN PRN Reason: Pain Aspirin (Aspirin Chewable) 81 mg PO HS [facility] Last Admin: 04/10/17 22:09 Dose: 81 mg Atorvastatin Calcium (Lipitor) 40 mg PO DIN [facility] Last Admin: 04/11/17 16:38 Dose: 40 mg Budesonide (Pulmicort Respules) 0.5 mg IH [id number] [facility] Last Admin: 04/11/17 08:12 Dose: 0.5 mg Digoxin (Lanoxin) 0.125 mg PO DAILY [facility] Last Admin: 04/11/17 10:22 Dose: 0.125 mg Diltiazem HCl (Cardizem Cd) 180 mg PO DAILY [facility] Last Admin: 04/11/17 10:21 Dose: 180 mg Furosemide (Lasix) 40 mg IVP DAILY [facility] Last Admin: 04/11/17 10:22 Dose: 40 mg Milrinone Lactate/Dextrose (Primacor 20mg/100ml D5w) 100 mls @ 6.559 mls/hr IV .[id number] PRN; Protocol; 0.2 MCG/KG/MIN PRN Reason: TITRATE PER MD ORDER Last Admin: 04/11/17 12:22 Dose: 0.2 mcg/kg/min, 6.559 mls/hr Ceftriaxone Sodium (Rocephin 1 Gram Ivpb) 1 gm in 100 mls @ 100 mls/hr IVPB DAILY [facility] PRN Reason: Protocol Last Admin: 04/11/17 13:23 Dose: 100 mls/hr Insulin Human Lispro (Humalog Med) 0 units SC ACHS [facility] PRN Reason: Protocol Last Admin: 04/11/17 16:37 Dose: 5 units Isosorbide Mononitrate (Imdur) 60 mg PO DAILY [facility] Last Admin: 04/11/17 10:22 Dose: 60 mg Levalbuterol HCl (Xopenex) 0.63 mg IH [id number] [facility] Last Admin: 04/11/17 13:36 Dose: 0.63 mg Levalbuterol HCl (Xopenex) 0.63 mg IH Q2 PRN PRN Reason: Shortness of Breath Lisinopril (Zestril) 2.5 mg PO [facility] Lorazepam (Ativan) 0.5 mg PO DAILY PRN; Protocol PRN Reason: Anxiety Last Admin: 04/11/17 00:25 Dose: 0.5 mg Non-Formulary Medication (Ranolazine [Ranexa]) 500 mg PO BID [facility] Last Admin: 04/11/17 10:23 Dose: Not Given Ondansetron HCl (Zofran Inj) 4 mg IVP Q4H PRN PRN Reason: Nausea/Vomiting Pantoprazole Sodium (Protonix Ec Tab) 40 mg PO 0600 [facility] Last Admin: 04/11/17 05:14 Dose: 40 mg Potassium Chloride (K-Dur 20 Meq Er Tab) 20 meq PO DAILY [facility] Last Admin: 04/11/17 10:22 Dose: 20 meq Tiotropium [place] (Spiriva) 2 mcg INH DAILY [facility] Last Admin: 04/11/17 10:23 Dose: 0.1 mcg Warfarin Sodium (Coumadin) 5 mg PO 1800 [facility] PRN Reason: Protocol - Labs Labs: 04/11/17 07:00 04/11/17 07:00 PT 18.5 Seconds (9.9-11.8) H 04/11/17 07:00 INR 1.71 (0.93-1.08) H 04/11/17 07:00 APTT 32.7 Seconds (23.7-30.8) H 04/09/17 19:23 - Constitutional Appears: Non-toxic, No Acute Distress - Head Exam Head Exam: NORMAL INSPECTION - Eye Exam Eye Exam: Normal appearance - ENT Exam ENT Exam: Mucous Membranes Moist - Respiratory Exam Additional comments: mild rales; - Cardiovascular Exam Cardiovascular Exam: Irregular Rhythm. absent: Rubs - GI/Abdominal Exam GI & Abdominal Exam: Soft. absent: Tenderness - Extremities Exam Extremities Exam: Normal Capillary Refill Additional comments: mild lower leg edema; - Neurological Exam Neurological Exam: Alert, Awake - Psychiatric Exam Psychiatric exam: Normal Affect, Normal Mood - Skin Skin Exam: Warm. absent: Cyanosis Assessment and Plan (1) Acute renal failure Assessment & Plan: Pre-renal etiology in setting of CHF and aggressive diuresis; renal function improving with inotropic support; avoid overly aggressive diuresis, continue lasix 40 mg IV daily; Status: Acute (2) CHF (congestive heart failure) Assessment & Plan: Decompensated systolic CHF; improved symptoms on inotropic support, continue per cardio recs; Status: Acute (3) HTN (hypertension) Assessment & Plan: BP controlled; continue to hold lisinopril in setting of pre-renal DELMY; Status: Chronic (4) UTI (urinary tract infection) Assessment & Plan: On ceftriaxone, no renal dose adjustment needed; may have mild urinary retention that is pre-disposing to UTI (borderline high post-void residual); may benefit form urology f/u as outpatient; Status: Acute
[2017-04-12] MEDS: Levalbuterol 0.63 MG/3 ML Inhal Soln UD IH SCH ×4 (02:57→19:50)
[2017-04-12] MEDS: Milrinone 20mg/100ml D5W 100 ML IV PRN ×2 (05:28→21:49)
[2017-04-12] MEDS: Pantoprazole 40 mg EC Tab PO SCH (05:30)
[2017-04-12 07:23] LABS: INR 2.06 (0.93-1.08)
[2017-04-12 07:24] LABS: HEMATOCRIT 35.5 % (36.0-48.0); MEAN CELL VOLUME 98.3 fl (80.0-105.0); MEAN CORPUSCULAR HEMOGLOBIN 34.3 pg (25.0-35.0); MEAN CORPUSCULAR HGB CONC 34.9 g/dl (31.0-37.0); MEAN PLATELET VOLUME 9.2 fl (7.0-11.0); RED CELL DISTRIBUTION WIDTH 12.6 % (11.5-14.5); WHITE BLOOD COUNT 4.3 10^3/ul (4.5-11.0)
--- NOTE | 2017-04-12 07:26 | PN ---
DATE: 04/12/2017 SUBJECTIVE: The patient appears comfortable this morning. She is not short of breath at rest. PHYSICAL EXAMINATION VITAL SIGNS: Temperature is 98.0, pulse 78, respirations 18/20, blood pressure 125/61. Oxygen saturation on nasal cannula is 97%. HEENT: Normocephalic, atraumatic. NECK: No JVD. CARDIOVASCULAR: Systolic ejection murmur at the lower left sternal border. Questionable S3 gallop. LUNGS: Minimal basal crackles. No rhonchi or wheezing this morning. EXTREMITIES: Positive for mild edema. No cyanosis, no clubbing. Calves are nontender to palpation. GASTROINTESTINAL: Abdomen is soft, nontender, nondistended. Bowel sounds are positive. SKIN: No acute rash. NEUROLOGIC: Limited at the present time. IMPRESSION: 1. Acute mild congestive heart failure. 2. Mild bronchitis. 3. Chronic obstructive pulmonary disease. 4. Coronary artery disease. 5. Renal insufficiency. PLAN: The patient appears comfortable this morning. She is not short of breath at rest. She states her breathing is much better overall. On physical exam, her bronchospasm continues to resolve. In addition, the oxygen saturation on nasal cannula is now 97%. I will continue with the current nebulizer treatments and inhaled steroids for now. Cardiology and renal evaluations are noted. Clinical status of the patient is definitely improved. I will discuss the above with the attending physician. Natan Valle MD MTDD
[2017-04-12] MEDS: Insulin Lispro (humaLOG) MEDIUM Coverage SC SCH ×4 (07:53→21:35)
[2017-04-12 08:00] LABS: ALB/GLOB RATIO 1.5 (1.1-1.8); BILIRUBIN,TOTAL 0.6 mg/dL (0.2-1.3); POTASSIUM 3.6 mmol/L (3.6-5.0); TOTAL PROTEIN 6.3 g/dL (5.8-8.3)
[2017-04-12] MEDS: Budesonide 0.5 mg/2 ml Inhal Susp UD IH SCH ×2 (08:49→19:50)
--- NOTE | 2017-04-12 09:23 | PN ---
DATE: 04/12/2017 SUBJECTIVE: The patient appears comfortable this morning. She is not short of breath at rest. PHYSICAL EXAMINATION VITAL SIGNS: Temperature is 98.0, pulse 78, respirations 18/20, blood pressure 125/61. Oxygen saturation on nasal cannula is 97%. HEENT: Normocephalic, atraumatic. NECK: No JVD. CARDIOVASCULAR: Systolic ejection murmur at the lower left sternal border. Questionable S3 gallop. LUNGS: Minimal basal crackles. No rhonchi or wheezing this morning. EXTREMITIES: Positive for mild edema. No cyanosis, no clubbing. Calves are nontender to palpation. GASTROINTESTINAL: Abdomen is soft, nontender, nondistended. Bowel sounds are positive. SKIN: No acute rash. NEUROLOGIC: Limited at the present time. IMPRESSION: 1. Acute mild congestive heart failure. 2. Mild bronchitis. 3. Chronic obstructive pulmonary disease. 4. Coronary artery disease. 5. Renal insufficiency. PLAN: The patient appears comfortable this morning. She is not short of breath at rest. She states her breathing is much better overall. On physical exam, her bronchospasm continues to resolve. In addition, the oxygen saturation on nasal cannula is 97%. I will continue with the current nebulizer treatments and inhaled steroids for now. Cardiology and renal evaluations are noted. Clinical status of the patient is definitely improved. I will discuss the above with the attending physician. Natan Valle MD MTDD
[2017-04-12] MEDS: diltiaZEM 180 mg/24 Hours CD Cap PO SCH (09:24)
[2017-04-12] MEDS: Tiotropium 18 mcg Cap For Inhalation INH SCH (09:25)
[2017-04-12] MEDS: Potassium Chloride 20 mEq ER Tab PO SCH (09:37)
[2017-04-12] MEDS ORDERED: Potassium Chloride 20 mEq ER Tab PO ONE (10:02)
[2017-04-12] MEDS: Non Formulary Medication (Ranolazine [Ranexa] 500 MG) PO SCH (10:22)
--- NOTE | 2017-04-12 12:29 | PN ---
DATE: 04/12/2017 REASON FOR CONSULTATION: Followup acute decompensated congestive heart failure, cardiac evaluation, history of CABG, renal insufficiency, COPD, active tobacco abuse; and obesity. SUBJECTIVE: The patient feels a little better, but is still complaining of a shooting pain in both legs. Yesterday went for SKIP and PVR. No chest pain. Shortness of breath is improving. OBJECTIVE: GENERAL: Sitting at the bed, all questions were answered. The patient has multiple questions, which were answered. VITAL SIGNS: Temperature afebrile, heart rate 72, and blood pressure 120/60. HEENT: PERRLA. Extraocular muscles are intact. NECK: Supple. No carotid bruits or thyromegaly. CHEST: Clear to auscultation. HEART: S1 and S2, regular. ABDOMEN: Soft. EXTREMITIES: Clubbing and cyanosis negative. LABORATORY DATA: Blood workup as follows: WBC 4.3, hemoglobin 12.1, hematocrit 35.1, and platelet count 134. Chemistry: Shows sodium of 130, potassium of 3.6, chloride of 95, carbon dioxide of 36, anion gap of 11, BUN of 14, and creatinine 1.2. Total protein 6.3, albumin 3.7, albumin-globin ratio 1.5. Lower extremity SKIP and PVR was done yesterday that shows relatively normal and symmetrical PVR waveform at all level limited study to calcified vessels. SKIP on the right 0.97 and SKIP on the left at resting was not obtained and as mentioned no calf PVR waveform augmentation. The calf PVR waveforms augment normally, no significant gradient across noted. Ankle and metatarsal waveforms are literally normal and symmetrical. Impression was relatively normal and symmetrical PVR waveform at all levels. IMPRESSION: A 66-year-old morbidly obese female with diabetes, hypertension, hyperlipidemia, and a history of coronary artery bypass on 10/18/2010 at [facility], [place], active tobacco abuse, chronic atrial fibrillation, failed transesophageal echocardiography cardioversion, hypertension, and hyperlipidemia admitted with decompensated congestive heart failure. Last catheterization at [facility] on 02/25/2016 showed occluded old graft, patent left internal mammary artery, but distal left anterior descending artery totally occluded fills retrograde. Re-do coronary artery bypass graft was suggested, but the patient refused and opted for medical treatment. Ejection fraction 35%, EP was in the range of 18. Last echocardiogram dated 02/23/2016 at [facility] show ejection fraction of 35%, mild mitral regurgitation and mild tricuspid regurgitation. The patient had repeat echocardiogram on 10/19/2016 that showed ejection fraction of 45% to 50%, atrial fibrillation, trace aortic regurgitation to mild mitral regurgitation and mild tricuspid regurgitation RV systolic pressure of 27, who admitted with acute decompensated congestive heart failure, acute kidney injury, and the patient was started on Primacor and diuretics. Renal function improved, having good diuresis. Yesterday, SKIP PVR was essentially normal. Diabetes, hypertension, hyperlipidemia, active tobacco abuse, noncompliance with the medication, chronic atrial fibrillation, failed transesophageal echocardiography cardioversion in the past. RECOMMENDATIONS: Continue Primacor for the next 24 hours. We will get a MUGA scan to assess LV function. Continue Cardizem. Continue Coumadin. Goal is to keep INR between 2 to 2.5 and will continue Coumadin 5 mg from today, yesterday it was 7.5. We will continue digoxin. We will discontinue Primacor possibly tomorrow and discharge planning probably in a day or two. We will follow with you. Thank you Dr. Johnson/Dr. Yee for providing us the opportunity in taking care of Kaila Crum. We will get the MUGA scan to assess LV function. Interim, continue digoxin, continue lisinopril, continue diuretics, continue anticoagulation, continue Cardizem to control heart rate. We will follow with you. Repeat the blood workup in the morning and supplement electrolytes as needed. We will supplement potassium. Compliance with the medication, complete cessation smoking, emphasis on weight reduction, modification of lifestyle, modification of risk factor for progression of the coronary artery disease is recommended is recommended and complete cessation smoking emphasis made again as well as weight reduction, the patient stated that she will try. The patient was on Ranexa at home, we will resume Ranexa upon discharge. We will check magnesium and phosphorous level tomorrow with a MUGA today. We will discontinue Primacor tomorrow if the renal function remains stable. We will discontinue Primacor tomorrow at 7 a.m. Je Santana MD [facility] # [id number]
[2017-04-12] MEDS: Digoxin 125 mcg (0.125 mg) Tab PO SCH (13:06)
[2017-04-12] MEDS: cefTRIAXone 1 gm 1 GM/100 ML BAG IVPB SCH (13:07)
--- NOTE | 2017-04-12 14:41 | CP.PCM.PN ---
<Janay Caba - Last Filed: 04/12/17 14:36> Subjective - Date & Time of Evaluation Date of Evaluation: 04/12/17 Time of Evaluation: 09:40 - Subjective Subjective: Patient has been seen and examined. She denies CP,fevers, chills or palpitations. She states her SOB has improved. She still complains of distal lower extremity pain that has not improved. Objective - Vital Signs/Intake and Output Vital Signs (last 24 hours): Temp Pulse Resp BP Pulse Ox 98 F 84 20 120/60 97 04/12/17 06:00 04/12/17 10:00 04/12/17 06:00 04/12/17 09:24 04/12/17 06:00 Intake and Output: 04/12/17 04/12/17 06:59 18:59 Intake Total 478 Output Total 200 Balance 278 - Medications Medications: Current Medications Acetaminophen (Tylenol 325mg Tab) 650 mg PO Q6H PRN PRN Reason: Pain Last Admin: 04/12/17 09:37 Dose: 650 mg Aspirin (Aspirin Chewable) 81 mg PO HS [facility] Last Admin: 04/11/17 22:05 Dose: 81 mg Atorvastatin Calcium (Lipitor) 40 mg PO DIN [facility] Last Admin: 04/11/17 16:38 Dose: 40 mg Budesonide (Pulmicort Respules) 0.5 mg IH [id number] [facility] Last Admin: 04/12/17 08:49 Dose: 0.5 mg Digoxin (Lanoxin) 0.125 mg PO DAILY [facility] Last Admin: 04/12/17 13:06 Dose: 0.125 mg Diltiazem HCl (Cardizem Cd) 180 mg PO DAILY [facility] Last Admin: 04/12/17 09:24 Dose: 180 mg Furosemide (Lasix) 40 mg IVP DAILY [facility] Last Admin: 04/12/17 09:24 Dose: 40 mg Milrinone Lactate/Dextrose (Primacor 20mg/100ml D5w) 100 mls @ 6.559 mls/hr IV .[id number] PRN; Protocol; 0.2 MCG/KG/MIN PRN Reason: TITRATE PER MD ORDER Stop: 04/13/17 07:00 Last Admin: 04/12/17 05:28 Dose: 0.2 mcg/kg/min, 6.559 mls/hr Ceftriaxone Sodium (Rocephin 1 Gram Ivpb) 1 gm in 100 mls @ 100 mls/hr IVPB DAILY [facility] PRN Reason: Protocol Last Admin: 04/12/17 13:07 Dose: 100 mls/hr Insulin Human Lispro (Humalog Med) 0 units SC ACHS [facility] PRN Reason: Protocol Last Admin: 04/12/17 13:08 Dose: 7 units Isosorbide Mononitrate (Imdur) 60 mg PO DAILY [facility] Last Admin: 04/12/17 09:24 Dose: 60 mg Levalbuterol HCl (Xopenex) 0.63 mg IH [id number] [facility] Last Admin: 04/12/17 14:10 Dose: 0.63 mg Levalbuterol HCl (Xopenex) 0.63 mg IH Q2 PRN PRN Reason: Shortness of Breath Lisinopril (Zestril) 2.5 mg PO HS [facility] Lorazepam (Ativan) 0.5 mg PO DAILY PRN; Protocol PRN Reason: Anxiety Last Admin: 04/11/17 22:05 Dose: 0.5 mg Non-Formulary Medication (Ranolazine [Ranexa]) 500 mg PO BID [facility] Last Admin: 04/12/17 10:22 Dose: Not Given Ondansetron HCl (Zofran Inj) 4 mg IVP Q4H PRN PRN Reason: Nausea/Vomiting Pantoprazole Sodium (Protonix Ec Tab) 40 mg PO 0600 [facility] Last Admin: 04/12/17 05:30 Dose: 40 mg Potassium Chloride (K-Dur 20 Meq Er Tab) 20 meq PO DAILY [facility] Last Admin: 04/12/17 09:37 Dose: 20 meq Tiotropium [place] (Spiriva) 2 mcg INH DAILY [facility] Last Admin: 04/12/17 09:25 Dose: 0.1 mcg Warfarin Sodium (Coumadin) 5 mg PO 1800 [facility] PRN Reason: Protocol - Labs Labs: 04/12/17 06:45 04/12/17 06:45 PT 22.2 Seconds (9.9-11.8) H 04/12/17 06:45 INR 2.06 (0.93-1.08) H 04/12/17 06:45 APTT 32.7 Seconds (23.7-30.8) H 04/09/17 19:23 - Constitutional Appears: In Acute Distress, Chronically Ill - Head Exam Head Exam: ATRAUMATIC, NORMAL INSPECTION, NORMOCEPHALIC - Eye Exam Eye Exam: EOMI - Respiratory Exam Respiratory Exam: Clear to Ausculation Bilateral. absent: Rales, Rhonchi, Wheezes Additional comments: Diffused dec. breath sounds likely due to body habitus - Cardiovascular Exam Cardiovascular Exam: +S1, +S2 - GI/Abdominal Exam GI & Abdominal Exam: Distended, Soft. absent: Tenderness, Organomegaly - Extremities Exam Extremities Exam: Pedal Edema, Tenderness Additional comments: distal lower ext. erythema (Improving) - Neurological Exam Neurological Exam: Alert, Awake, Oriented x3 - Psychiatric Exam Psychiatric exam: Normal Affect, Normal Mood Assessment and Plan - Assessment and Plan (Free Text) Assessment: 65 y/o F with PMH of A-fib, COPD, CHF with EF of 40%, DM, CAD s/p CABG, MO, HTN , HLD, and Anxiety presents with CHF exacerbation vs COPD exacerbation and UTI. Pt with similar complaints on previous admission in September. Plan: CHF exacerbation Lasix 40 mg IV daily Recent echo 40% Strict I's and O's Daily weights Cardiology Consult, Dr. Santana-paolo appreciated Milrinone per cardiology PT DC Pirmacor tmrw per Cardio if kindney function remains stable. MUGA scan today to assess LV function. Resume Renaxa upon DC per Cardio COPD -Pulm consulted -Xopenex and Budeniside per Pulm B/L Lower extremity erythema 2/2 possible cellulitis -Rocephin UTI (Asymptomatic) Rocephin Urine culture shows Klebsiella Pneumonia DELMY (improving) -likely pre-renal etiology due to over-diuresis or inadequate forward flow. -Per Nephro Hold lisnopril, -Renal US (04/10): increased echogenicity of the b/l renal cornices suggestive for medical renal disease. Upper pole hypoechoic b/l renal cyst. -Bladder US (04/10): unremarkable. Prevoid volume 343. Postvoid is 99. -Monitor (Cr trending down slowly) A-fib Rate controlled Continue Warfarin Monitor INR daily DM ISS [id number] HTN Hold BP meds at this time Patient has been normotensive. PPX Warfarin Protonix Zofran Patient seen, examined, and discussed with Attending Janay Caba PGY-1 <Irfan MD,Je - Last Filed: 04/13/17 18:46> Objective - Vital Signs/Intake and Output Vital Signs (last 24 hours): Temp Pulse Resp BP Pulse Ox 97 F L 60 16 118/62 96 04/13/17 12:00 04/13/17 12:00 04/13/17 12:00 04/13/17 17:31 04/13/17 06:00 Intake and Output: 04/13/17 04/13/17 06:59 18:59 Intake Total 407 600 Output Total 1400 600 Balance -993 0 - Medications Medications: Current Medications Acetaminophen (Tylenol 325mg Tab) 650 mg PO Q6H PRN PRN Reason: Pain Last Admin: 04/12/17 09:37 Dose: 650 mg Aspirin (Aspirin Chewable) 81 mg PO HS [facility] Last Admin: 04/12/17 21:49 Dose: 81 mg Atorvastatin Calcium (Lipitor) 40 mg PO DIN [facility] Last Admin: 04/13/17 17:30 Dose: 40 mg Budesonide (Pulmicort Respules) 0.5 mg IH [id number] [facility] Last Admin: 04/13/17 08:30 Dose: 0.5 mg Digoxin (Lanoxin) 0.125 mg PO DAILY [facility] Last Admin: 04/13/17 12:33 Dose: 0.125 mg Diltiazem HCl (Cardizem Cd) 180 mg PO DAILY [facility] Last Admin: 04/13/17 10:16 Dose: 180 mg Furosemide (Lasix) 40 mg PO 0800,1400 [facility] Ceftriaxone Sodium (Rocephin 1 Gram Ivpb) 1 gm in 100 mls @ 100 mls/hr IVPB DAILY [facility] PRN Reason: Protocol Last Admin: 04/13/17 10:16 Dose: 100 mls/hr Insulin Human Lispro (Humalog Med) 0 units SC ACHS [facility] PRN Reason: Protocol Last Admin: 04/13/17 17:30 Dose: 5 units Isosorbide Mononitrate (Imdur) 60 mg PO DAILY [facility] Last Admin: 04/13/17 10:17 Dose: 60 mg Levalbuterol HCl (Xopenex) 0.63 mg IH [id number] [facility] Last Admin: 04/13/17 13:53 Dose: 0.63 mg Levalbuterol HCl (Xopenex) 0.63 mg IH Q2 PRN PRN Reason: Shortness of Breath Lisinopril (Zestril) 2.5 mg PO HS [facility] Lorazepam (Ativan) 0.5 mg PO DAILY PRN; Protocol PRN Reason: Anxiety Last Admin: 04/12/17 21:49 Dose: 0.5 mg Non-Formulary Medication (Ranolazine [Ranexa]) 500 mg PO BID [facility] Last Admin: 04/13/17 17:31 Dose: Not Given Ondansetron HCl (Zofran Inj) 4 mg IVP Q4H PRN PRN Reason: Nausea/Vomiting Pantoprazole Sodium (Protonix Ec Tab) 40 mg PO 0600 [facility] Last Admin: 04/13/17 05:56 Dose: 40 mg Potassium Chloride (K-Dur 20 Meq Er Tab) 20 meq PO DAILY [facility] Last Admin: 04/13/17 10:16 Dose: 20 meq Tiotropium [place] (Spiriva) 2 mcg INH DAILY [facility] Last Admin: 04/13/17 10:17 Dose: 0.1 mcg Warfarin Sodium (Coumadin) 5 mg PO 1800 [facility] PRN Reason: Protocol Last Admin: 04/13/17 17:30 Dose: 5 mg - Labs Labs: 04/13/17 06:40 04/13/17 06:40 PT 30.3 Seconds (9.9-11.8) H* 04/13/17 06:40 INR 2.81 (0.93-1.08) H 04/13/17 06:40 APTT 32.7 Seconds (23.7-30.8) H 04/09/17 19:23 Attending/Attestation - Attestation I have personally seen and examined this patient.: Yes I have fully participated in the care of the patient.: Yes I have reviewed all pertinent clinical information, including history, physical exam and plan: Yes Notes (Text): 04/13/17 18:41 Patient seen and examined with resident. 66-year-old female with PMH of CHF with systolic dysfunction, EF 45%,HTN,irdm, COPD was admitted with acute CHF exacerbation. Patient was started on IV milrinone. She had good diuresis , plan to DC Milrinone drip in 24 hour.Case discussed with cardiology Dr. Santana in detail. Strict input and output ordered. Daily weight ordered. Lower extremity erythema; Doppler is negative for DVT. She was started on IV Rocephin.Redness has significantly improved. Urine cultures are growing gram negative isidra, UA is not suggestive of UTI. COPD; continue oxygen nasal cannula. Oxygen dependent. Pulmonary evaluation requested. Continue Xopenex and budesonide. Upon discharge the patient will follow-up with PMD Dr. Yee. Management plan was discussed in detail with patient Education was provided.
--- NOTE | 2017-04-12 20:13 | CP.PCM.PN ---
Subjective - Date & Time of Evaluation Date of Evaluation: 04/12/17 Time of Evaluation: 18:00 - Subjective Subjective: Patient reports urinating more; has pain in her legs; Objective - Vital Signs/Intake and Output Vital Signs (last 24 hours): Temp Pulse Resp BP Pulse Ox 97.2 F L 70 18 121/62 97 04/12/17 16:56 04/12/17 18:00 04/12/17 16:56 04/12/17 16:56 04/12/17 06:00 Intake and Output: 04/12/17 04/13/17 18:59 06:59 Intake Total 360 Output Total 900 Balance -540 - Medications Medications: Current Medications Acetaminophen (Tylenol 325mg Tab) 650 mg PO Q6H PRN PRN Reason: Pain Last Admin: 04/12/17 09:37 Dose: 650 mg Aspirin (Aspirin Chewable) 81 mg PO HS [facility] Last Admin: 04/11/17 22:05 Dose: 81 mg Atorvastatin Calcium (Lipitor) 40 mg PO DIN [facility] Last Admin: 04/12/17 17:28 Dose: 40 mg Budesonide (Pulmicort Respules) 0.5 mg IH [id number] [facility] Last Admin: 04/12/17 19:50 Dose: 0.5 mg Digoxin (Lanoxin) 0.125 mg PO DAILY [facility] Last Admin: 04/12/17 13:06 Dose: 0.125 mg Diltiazem HCl (Cardizem Cd) 180 mg PO DAILY [facility] Last Admin: 04/12/17 09:24 Dose: 180 mg Furosemide (Lasix) 40 mg IVP DAILY [facility] Last Admin: 04/12/17 09:24 Dose: 40 mg Milrinone Lactate/Dextrose (Primacor 20mg/100ml D5w) 100 mls @ 6.559 mls/hr IV .[id number] PRN; Protocol; 0.2 MCG/KG/MIN PRN Reason: TITRATE PER MD ORDER Stop: 04/13/17 07:00 Last Admin: 04/12/17 05:28 Dose: 0.2 mcg/kg/min, 6.559 mls/hr Ceftriaxone Sodium (Rocephin 1 Gram Ivpb) 1 gm in 100 mls @ 100 mls/hr IVPB DAILY [facility] PRN Reason: Protocol Last Admin: 04/12/17 13:07 Dose: 100 mls/hr Insulin Human Lispro (Humalog Med) 0 units SC ACHS [facility] PRN Reason: Protocol Last Admin: 04/12/17 17:29 Dose: 7 units Isosorbide Mononitrate (Imdur) 60 mg PO DAILY [facility] Last Admin: 04/12/17 09:24 Dose: 60 mg Levalbuterol HCl (Xopenex) 0.63 mg IH [id number] [facility] Last Admin: 04/12/17 19:50 Dose: 0.63 mg Levalbuterol HCl (Xopenex) 0.63 mg IH Q2 PRN PRN Reason: Shortness of Breath Lisinopril (Zestril) 2.5 mg PO HS [facility] Lorazepam (Ativan) 0.5 mg PO DAILY PRN; Protocol PRN Reason: Anxiety Last Admin: 04/11/17 22:05 Dose: 0.5 mg Non-Formulary Medication (Ranolazine [Ranexa]) 500 mg PO BID [facility] Last Admin: 04/12/17 10:22 Dose: Not Given Ondansetron HCl (Zofran Inj) 4 mg IVP Q4H PRN PRN Reason: Nausea/Vomiting Pantoprazole Sodium (Protonix Ec Tab) 40 mg PO 0600 [facility] Last Admin: 04/12/17 05:30 Dose: 40 mg Potassium Chloride (K-Dur 20 Meq Er Tab) 20 meq PO DAILY [facility] Last Admin: 04/12/17 09:37 Dose: 20 meq Tiotropium [place] (Spiriva) 2 mcg INH DAILY [facility] Last Admin: 04/12/17 09:25 Dose: 0.1 mcg Warfarin Sodium (Coumadin) 5 mg PO 1800 [facility] PRN Reason: Protocol Last Admin: 04/12/17 17:28 Dose: 5 mg - Labs Labs: 04/12/17 06:45 04/12/17 06:45 PT 22.2 Seconds (9.9-11.8) H 04/12/17 06:45 INR 2.06 (0.93-1.08) H 04/12/17 06:45 APTT 32.7 Seconds (23.7-30.8) H 04/09/17 19:23 - Constitutional Appears: Non-toxic, No Acute Distress - Head Exam Head Exam: NORMAL INSPECTION - Eye Exam Eye Exam: Normal appearance. absent: Scleral icterus - ENT Exam ENT Exam: Mucous Membranes Moist - Respiratory Exam Respiratory Exam: Clear to Ausculation Bilateral Additional comments: decreased air movement; - Cardiovascular Exam Cardiovascular Exam: Irregular Rhythm, +S1, +S2 - GI/Abdominal Exam GI & Abdominal Exam: Soft. absent: Distended, Tenderness - Extremities Exam Extremities Exam: Normal Capillary Refill Additional comments: mild to moderate lower leg edema; - Neurological Exam Neurological Exam: Alert, Awake - Psychiatric Exam Psychiatric exam: Normal Affect, Normal Mood - Skin Skin Exam: Normal Color, Warm. absent: Cyanosis Assessment and Plan (1) Acute renal failure Assessment & Plan: Resolving with inotropic support and diuresis; pre-renal etiology in setting of CHF; moving forward is question of cardiac optimization; can restart low dose lisinopril tomorrow if renal function continues to improve; -continue diuretics with IV lasix 40 mg in am, adding 20 mg in pm; -daily standing weights (107 lbs today) Status: Acute (2) CHF (congestive heart failure) Assessment & Plan: Symptomatically improved; see above; goal weight loss ~2lbs per day; Status: Acute (3) HTN (hypertension) Assessment & Plan: BP controlled; off coreg or OSCAR inhibitor; f/u with cardio for restarting B- rich, likely can restart OSCAR-I tomorrow; Status: Chronic (4) UTI (urinary tract infection) Assessment & Plan: On ceftriaxone for Klebsiella UTI, no renal dose adjustment needed; Status: Acute (5) Metabolic alkalosis Assessment & Plan: Unclear if this is due to diuretics or compensation for resp acidosis; will check VBG; if from diuretics, will benefit from aldactone; Status: Acute
--- NOTE | 2017-04-12 22:03 | CARD ---
APPROVED REPORT PROCEDURE The above named patient recieved 24.6 millicuries of Tc99m tagged red blood cells intravenously. After achieving equilibrium, gated imaging of 16/frame/cycle was performed utillizing Gamma camera interfaced with a digital computer and gated device. Gated imaging was then performed in the left anterior oblique, anterior, and the left lateral projections. Findings Left Ventricle: The quality of the study is good. The left ventricle is within normal limits in size. The right ventricle is normal in size. Wall motion study shows good contractility of the left ventricle except for paradoxical septal wall motion. RV wall motion is normal. The right atrium is dynamic. The remainder of the study is unremarkable. Impressions Normal overall LV function despite paradoxical septal wall motion. LVEF = 60%. Normal RV wall motion.
[2017-04-13] MEDS: Levalbuterol 0.63 MG/3 ML Inhal Soln UD IH SCH ×4 (01:08→19:43)
[2017-04-13] MEDS: Pantoprazole 40 mg EC Tab PO SCH (05:56)
[2017-04-13 07:32] LABS: HEMATOCRIT 37.4 % (36.0-48.0); MEAN CELL VOLUME 98.9 fl (80.0-105.0); MEAN CORPUSCULAR HEMOGLOBIN 34.9 pg (25.0-35.0); MEAN CORPUSCULAR HGB CONC 35.3 g/dl (31.0-37.0); MEAN PLATELET VOLUME 9.5 fl (7.0-11.0); RED CELL DISTRIBUTION WIDTH 12.6 % (11.5-14.5); WHITE BLOOD COUNT 5.1 10^3/ul (4.5-11.0)
[2017-04-13 07:42] LABS: INR 2.81 (0.93-1.08)
--- NOTE | 2017-04-13 07:45 | CP.PCM.PN ---
Subjective - Date & Time of Evaluation Date of Evaluation: 04/13/17 Time of Evaluation: 07:42 - Subjective Subjective: PGY-[address] Grant's Nephrology service: Pt seen and examined at bedside. Patient reports difficulty sleeping last night due to continued pain in legs. She admits improved bilateral leg swelling, but remains short of breath with exertion, which she states is her baseline. Objective - Vital Signs/Intake and Output Vital Signs (last 24 hours): Temp Pulse Resp BP Pulse Ox 98.2 F 89 20 119/57 L 96 04/13/17 06:00 04/13/17 06:00 04/13/17 06:00 04/13/17 06:00 04/13/17 06:00 Intake and Output: 04/13/17 04/13/17 06:59 18:59 Intake Total 407 Output Total 1400 Balance -993 - Medications Medications: Current Medications Acetaminophen (Tylenol 325mg Tab) 650 mg PO Q6H PRN PRN Reason: Pain Last Admin: 04/12/17 09:37 Dose: 650 mg Aspirin (Aspirin Chewable) 81 mg PO HS [facility] Last Admin: 04/12/17 21:49 Dose: 81 mg Atorvastatin Calcium (Lipitor) 40 mg PO DIN [facility] Last Admin: 04/12/17 17:28 Dose: 40 mg Budesonide (Pulmicort Respules) 0.5 mg IH [id number] [facility] Last Admin: 04/12/17 19:50 Dose: 0.5 mg Digoxin (Lanoxin) 0.125 mg PO DAILY [facility] Last Admin: 04/12/17 13:06 Dose: 0.125 mg Diltiazem HCl (Cardizem Cd) 180 mg PO DAILY [facility] Last Admin: 04/12/17 09:24 Dose: 180 mg Furosemide (Lasix) 40 mg IVP DAILY [facility] Last Admin: 04/12/17 09:24 Dose: 40 mg Ceftriaxone Sodium (Rocephin 1 Gram Ivpb) 1 gm in 100 mls @ 100 mls/hr IVPB DAILY [facility] PRN Reason: Protocol Last Admin: 04/12/17 13:07 Dose: 100 mls/hr Insulin Human Lispro (Humalog Med) 0 units SC ACHS [facility] PRN Reason: Protocol Last Admin: 04/12/17 21:35 Dose: Not Given Isosorbide Mononitrate (Imdur) 60 mg PO DAILY [facility] Last Admin: 04/12/17 09:24 Dose: 60 mg Levalbuterol HCl (Xopenex) 0.63 mg IH [id number] [facility] Last Admin: 04/13/17 01:08 Dose: 0.63 mg Levalbuterol HCl (Xopenex) 0.63 mg IH Q2 PRN PRN Reason: Shortness of Breath Lisinopril (Zestril) 2.5 mg PO HS [facility] Lorazepam (Ativan) 0.5 mg PO DAILY PRN; Protocol PRN Reason: Anxiety Last Admin: 04/12/17 21:49 Dose: 0.5 mg Non-Formulary Medication (Ranolazine [Ranexa]) 500 mg PO BID [facility] Last Admin: 04/12/17 10:22 Dose: Not Given Ondansetron HCl (Zofran Inj) 4 mg IVP Q4H PRN PRN Reason: Nausea/Vomiting Pantoprazole Sodium (Protonix Ec Tab) 40 mg PO 0600 [facility] Last Admin: 04/13/17 05:56 Dose: 40 mg Potassium Chloride (K-Dur 20 Meq Er Tab) 20 meq PO DAILY [facility] Last Admin: 04/12/17 09:37 Dose: 20 meq Tiotropium [place] (Spiriva) 2 mcg INH DAILY [facility] Last Admin: 04/12/17 09:25 Dose: 0.1 mcg Warfarin Sodium (Coumadin) 5 mg PO 1800 [facility] PRN Reason: Protocol Last Admin: 04/12/17 17:28 Dose: 5 mg - Labs Labs: 04/13/17 06:40 04/12/17 06:45 PT 22.2 Seconds (9.9-11.8) H 04/12/17 06:45 INR 2.06 (0.93-1.08) H 04/12/17 06:45 APTT 32.7 Seconds (23.7-30.8) H 04/09/17 19:23 - Constitutional Appears: Non-toxic, No Acute Distress - Head Exam Head Exam: ATRAUMATIC, NORMOCEPHALIC - Eye Exam Eye Exam: EOMI, Normal appearance - ENT Exam ENT Exam: Mucous Membranes Moist - Neck Exam Neck Exam: Full ROM - Respiratory Exam Respiratory Exam: Decreased Breath Sounds - Cardiovascular Exam Cardiovascular Exam: Irregular Rhythm, +S1, +S2 - GI/Abdominal Exam GI & Abdominal Exam: Soft, Normal Bowel Sounds. absent: Tenderness - Extremities Exam Extremities Exam: Pedal Edema (1-2+ pitting edema) - Neurological Exam Neurological Exam: Alert, Awake, Oriented x3 - Psychiatric Exam Psychiatric exam: Normal Affect, Normal Mood - Skin Skin Exam: Normal Color, Warm Assessment and Plan - Assessment and Plan (Free Text) Plan: Assessment and Plan (1) Acute renal failure Assessment & Plan: Resolving with inotropic support and diuresis pre-renal etiology in setting of CHF; moving forward is question of cardiac optimization; - renal function same today, will wait until tomorrow's labwork before restarting OSCAR - continue diuretics with IV lasix 40 mg in am - 20mg IV this pm ONCE -daily standing weights (105 kg today, down from admission ~110 kg) Status: Acute (2) CHF (congestive heart failure) Assessment & Plan: Symptomatically improved; see above; goal weight loss ~2lbs per day Status: Acute (3) HTN (hypertension) Assessment & Plan: BP remains well controlled; off coreg; f/u with cardio for restarting B-rich , will consider restarting OSCAR-I tomorrow Status: Chronic (4) UTI (urinary tract infection) Assessment & Plan: On ceftriaxone for Klebsiella UTI, no renal dose adjustment needed Status: Acute (5) Metabolic alkalosis Assessment & Plan: Unclear if this is due to diuretics or compensation for resp acidosis -f/u VBG -if from diuretics, will benefit from aldactone Status: Acute
[2017-04-13 07:51] LABS: ALB/GLOB RATIO 1.3 (1.1-1.8); BILIRUBIN,TOTAL 0.9 mg/dL (0.2-1.3); CALCIUM 9.1 mg/dL (8.4-10.5); PHOSPHOROUS 3.3 mg/dL (2.5-4.5); POTASSIUM 4.2 mmol/L (3.6-5.0); TOTAL PROTEIN 6.9 g/dL (5.8-8.3)
[2017-04-13] MEDS: Insulin Lispro (humaLOG) MEDIUM Coverage SC SCH ×4 (08:23→22:23)
[2017-04-13] MEDS: Budesonide 0.5 mg/2 ml Inhal Susp UD IH SCH ×2 (08:30→19:43)
--- NOTE | 2017-04-13 08:42 | PN ---
PULMONARY NOTE DATE: 04/13/2017 SUBJECTIVE: The patient appears comfortable this morning. She is not short of breath at rest. PHYSICAL EXAMINATION VITAL SIGNS: Temperature 98.2, pulse 89, respirations 18, blood pressure 119/57. Oxygen saturation on nasal cannula is 96%. HEENT: Normocephalic and atraumatic. NECK: No JVD. CARDIOVASCULAR: Systolic ejection murmur at the lower left sternal border. Questionable S3 gallop. LUNGS: Minimal basal crackles. Otherwise clear. EXTREMITIES: less edema. No cyanosis. No clubbing. Calves are nontender to palpation. GASTROINTESTINAL: Abdomen is soft, nontender, and nondistended. Bowel sounds are positive. SKIN: No acute rash. NEUROLOGIC: Limited at the present time. IMPRESSION: 1. Acute mild congestive heart failure. 2. Mild bronchitis. 3. Chronic obstructive pulmonary disease. 4. Coronary artery disease. 5. Renal insufficiency. PLAN: The patient appears very comfortable this morning. She is not short of breath at rest. She states she is feeling much better overall. On physical exam, no significant bronchospasm exists. In addition, there is no significant alveolar-arterial gradient. I will continue the current nebulizer treatments and inhaled steroids for now. Inputs by cardiology and renal are noted. Clinical status of the patient is definitely improved. I will discuss the above with the attending physician. Natan Valle MD MTDD
[2017-04-13] MEDS: Potassium Chloride 20 mEq ER Tab PO SCH (10:16)
[2017-04-13] MEDS: cefTRIAXone 1 gm 1 GM/100 ML BAG IVPB SCH (10:16)
[2017-04-13] MEDS: diltiaZEM 180 mg/24 Hours CD Cap PO SCH (10:16)
[2017-04-13] MEDS: Tiotropium 18 mcg Cap For Inhalation INH SCH (10:17)
[2017-04-13] MEDS: Non Formulary Medication (Ranolazine [Ranexa] 500 MG) PO SCH ×2 (10:18→17:31)
[2017-04-13] MEDS: Digoxin 125 mcg (0.125 mg) Tab PO SCH (12:33)
--- NOTE | 2017-04-13 16:57 | PN ---
DATE: 04/13/2017 REASON FOR CONSULTATION AND FOLLOWUP: Decompensated congestive heart failure, cardiac evaluation, history of CABG, history of renal insufficiency, COPD, active tobacco abuse and obesity. SUBJECTIVE: The patient feels better. Denies any chest pain or shortness of breath. Complaining of leg pain, but improved better. OBJECTIVE: GENERAL: Sitting at the bedside, not in distress. VITAL SIGNS: As follows: Temperature afebrile, heart rate 71, and blood pressure 119/57. HEENT: PERRLA. Extraocular muscles are intact. NECK: Supple. No carotid bruits or thyromegaly. CHEST: Clear to auscultation. HEART: S1 and S2, regular. ABDOMEN: Soft. EXTREMITIES: Clubbing and cyanosis negative. LABORATORY DATA: Blood workup as follows: WBC 5.0, hemoglobin 13.8, hematocrit 37.4, and platelet count 150. Chemistry shows sodium 137, potassium 4.2, chloride 96, carbon dioxide 32, anion gap of 13, BUN 37, and creatinine 1.2. Blood sugar 251. MUGA scan done shows ejection fraction 60%, normal RV function, while the patient was on Primacor. IMPRESSION: A 66-year-old morbidly obese female with body mass index 40 kg/m2, active tobacco abuse, history of coronary artery disease, status post coronary artery bypass surgery 10/18/2010 at [facility], chronic atrial fibrillation, failed transesophageal echocardiography cardioversion in the past, hypertension, hyperlipidemia, admitted with decompensated congestive heart failure and acute kidney injury. The patient was started on IV Primacor. Renal function improved. The patient has extensive diuresis and improved significantly. Last echo 10/19/2016 shows ejection fraction 45% to 50%. The patient yesterday underwent MUGA scan that showed ejection fraction 60% while on Primacor. Yesterday, the patient underwent SKIP and PVR was essentially normal. No significant peripheral arterial disease detected. History of chronic atrial fibrillation, failed transesophageal echocardiography cardioversion in the past. RECOMMENDATION: Continue Lasix, changed to 40 mg b.i.d. Continue anticoagulation for atrial fibrillation, adjust the dose of the Coumadin, the patient was given 2 doses of 7.5 mg, now the patient was back to 5 mg daily. We will change Lasix to p.o.. Discontinue telemetry. Discharge planning, followup, blood workup, PT/INR on Sunday with PMD. We will discontinue telemetry and switch her Lasix to p.o. Upon discharge, the patient will be seen by Dr. Harper and Dr. Yee. Possible discharge today. Thank you for providing opportunity in taking care of the patient, Skyla Bright. We will follow with you. Je Santana MD cc:
--- NOTE | 2017-04-13 17:25 | CP.PCM.PN ---
<Janay Caba - Last Filed: 04/13/17 21:29> Subjective - Date & Time of Evaluation Date of Evaluation: 04/13/17 Time of Evaluation: 15:00 - Subjective Subjective: Patient has been seen and examined. Patient states that overnight she had a lot of lower extremity pain which prevented her from getting adequate sleep. Her current SOB is her baseline. She denies any fever, chills, chest pain or abdominal pain. Patient has anxiety about going home, she wishes to go to TCU. Objective - Vital Signs/Intake and Output Vital Signs (last 24 hours): Temp Pulse Resp BP Pulse Ox 97 F L 60 16 124/60 96 04/13/17 12:00 04/13/17 12:00 04/13/17 12:00 04/13/17 12:00 04/13/17 06:00 Intake and Output: 04/13/17 04/13/17 06:59 18:59 Intake Total 407 600 Output Total 1400 600 Balance -993 0 - Medications Medications: Current Medications Acetaminophen (Tylenol 325mg Tab) 650 mg PO Q6H PRN PRN Reason: Pain Last Admin: 04/12/17 09:37 Dose: 650 mg Aspirin (Aspirin Chewable) 81 mg PO HS [facility] Last Admin: 04/12/17 21:49 Dose: 81 mg Atorvastatin Calcium (Lipitor) 40 mg PO DIN [facility] Last Admin: 04/12/17 17:28 Dose: 40 mg Budesonide (Pulmicort Respules) 0.5 mg IH [id number] [facility] Last Admin: 04/13/17 08:30 Dose: 0.5 mg Digoxin (Lanoxin) 0.125 mg PO DAILY [facility] Last Admin: 04/13/17 12:33 Dose: 0.125 mg Diltiazem HCl (Cardizem Cd) 180 mg PO DAILY [facility] Last Admin: 04/13/17 10:16 Dose: 180 mg Furosemide (Lasix) 40 mg PO 0800,1400 [facility] Furosemide (Lasix) 20 mg IVP ONCE ONE Stop: 04/13/17 18:01 Ceftriaxone Sodium (Rocephin 1 Gram Ivpb) 1 gm in 100 mls @ 100 mls/hr IVPB DAILY [facility] PRN Reason: Protocol Last Admin: 04/13/17 10:16 Dose: 100 mls/hr Insulin Human Lispro (Humalog Med) 0 units SC ACHS [facility] PRN Reason: Protocol Last Admin: 04/13/17 12:30 Dose: 7 units Isosorbide Mononitrate (Imdur) 60 mg PO DAILY [facility] Last Admin: 04/13/17 10:17 Dose: 60 mg Levalbuterol HCl (Xopenex) 0.63 mg IH [id number] [facility] Last Admin: 04/13/17 13:53 Dose: 0.63 mg Levalbuterol HCl (Xopenex) 0.63 mg IH Q2 PRN PRN Reason: Shortness of Breath Lisinopril (Zestril) 2.5 mg PO HS [facility] Lorazepam (Ativan) 0.5 mg PO DAILY PRN; Protocol PRN Reason: Anxiety Last Admin: 04/12/17 21:49 Dose: 0.5 mg Non-Formulary Medication (Ranolazine [Ranexa]) 500 mg PO BID [facility] Last Admin: 04/13/17 10:18 Dose: Not Given Ondansetron HCl (Zofran Inj) 4 mg IVP Q4H PRN PRN Reason: Nausea/Vomiting Pantoprazole Sodium (Protonix Ec Tab) 40 mg PO 0600 [facility] Last Admin: 04/13/17 05:56 Dose: 40 mg Potassium Chloride (K-Dur 20 Meq Er Tab) 20 meq PO DAILY [facility] Last Admin: 04/13/17 10:16 Dose: 20 meq Tiotropium [place] (Spiriva) 2 mcg INH DAILY [facility] Last Admin: 04/13/17 10:17 Dose: 0.1 mcg Warfarin Sodium (Coumadin) 5 mg PO 1800 [facility] PRN Reason: Protocol Last Admin: 04/12/17 17:28 Dose: 5 mg - Labs Labs: 04/13/17 06:40 04/13/17 06:40 PT 30.3 Seconds (9.9-11.8) H* 04/13/17 06:40 INR 2.81 (0.93-1.08) H 04/13/17 06:40 APTT 32.7 Seconds (23.7-30.8) H 04/09/17 19:23 - Constitutional Appears: Chronically Ill - Head Exam Head Exam: ATRAUMATIC, NORMOCEPHALIC - Eye Exam Eye Exam: EOMI - ENT Exam ENT Exam: Mucous Membranes Moist - Respiratory Exam Respiratory Exam: Clear to Ausculation Bilateral Additional comments: diffuse decreased breath sounds. likely from body habitus. - Cardiovascular Exam Cardiovascular Exam: RRR, +S1, +S2 - GI/Abdominal Exam GI & Abdominal Exam: Soft, Tenderness, Normal Bowel Sounds - Extremities Exam Extremities Exam: Pedal Edema, Tenderness Additional comments: improved erythema. LE TTP B/L - Neurological Exam Neurological Exam: Alert, Awake, Oriented x3 - Psychiatric Exam Psychiatric exam: Anxious Assessment and Plan - Assessment and Plan (Free Text) Assessment: 65 y/o F with PMH of A-fib, COPD, CHF with EF of 40%, DM, CAD s/p CABG, PR, HTN , HLD, and Anxiety presents with CHF exacerbation vs COPD exacerbation and UTI. Pt with similar complaints on previous admission in September. Plan: CHF exacerbation Lasix 40 mg IV daily Most recent echo shows Normal LV function (EF 60%) even with some paradoxical wall motion Strict I's and O's Daily weights Cardiology Consult, Dr. Santana-recs appreciated Milrinone DCd per cardiology PT Resume Renaxa upon DC per Cardio COPD -Pulm consulted -Xopenex and Budeniside per Pulm B/L Lower extremity erythema 2/2 possible cellulitis -Rocephin -Keflex on DC UTI (Asymptomatic) Rocephin Urine culture shows Klebsiella Pneumonia DELMY (stable) -likely pre-renal etiology due to over-diuresis or inadequate forward flow. -Per Nephro Hold lisnopril, -Renal US (04/10): increased echogenicity of the b/l renal cornices suggestive for medical renal disease. Upper pole hypoechoic b/l renal cyst. -Bladder US (04/10): unremarkable. Prevoid volume 343. Postvoid is 99. -Monitor (Cr trending down slowly) -restart Lisinopril tomorrow A-fib Rate controlled Continue Warfarin Monitor INR daily DM ISS [id number] HTN Hold BP meds at this time Patient has been normotensive. PPX Warfarin Protonix Zofran Dispo: Patient will go home tomorrow if stable. Patient seen, examined, and discussed with Attending Janay Caba PGY-1 <Lyly MAURICE,Je - Last Filed: 04/16/17 16:22> Objective - Vital Signs/Intake and Output Vital Signs (last 24 hours): Temp Pulse Resp BP Pulse Ox 98.9 F 74 22 121/72 99 04/14/17 06:00 04/14/17 09:08 04/14/17 06:00 04/14/17 14:49 04/14/17 06:00 - Labs Labs: 04/14/17 06:47 04/14/17 06:47 PT 36.0 Seconds (9.9-11.8) H* 04/14/17 06:47 INR 3.33 (0.93-1.08) H 04/14/17 06:47 APTT 32.7 Seconds (23.7-30.8) H 04/09/17 19:23 Attending/Attestation - Attestation I have personally seen and examined this patient.: Yes I have fully participated in the care of the patient.: Yes I have reviewed all pertinent clinical information, including history, physical exam and plan: Yes Notes (Text): 04/16/17 16:21 Patient was seen and examined with medical chief technician. Agreed with resident assessment and plan. 47 year old female with past medical history of Hepatitis C, Osteoporosis, Depression, heroin use was transferred from [facility] with uncontrolled HTN, opioid withdrawal, Blood pressure is better, Right hip has chronic pain , CT scan of hip showed severe destruction of right femoral head and right hip joint, Ortho consulted is pending. Management plan was discussed in detail with patient Education was provided.
[2017-04-14] MEDS: Levalbuterol 0.63 MG/3 ML Inhal Soln UD IH SCH ×4 (01:33→20:49)
[2017-04-14 02:01] VITALS: PULSE 74; RESP 22; TEMP 98.9; O2SAT 99
[2017-04-14] MEDS: Pantoprazole 40 mg EC Tab PO SCH (05:36)
--- NOTE | 2017-04-14 07:00 | PN ---
PULMONARY NOTE SUBJECTIVE: The patient appears comfortable this morning. She is not short of breath at rest. PHYSICAL EXAMINATION VITAL SIGNS: Temperature 98.9, pulse is 77, respiratory rate 18, last blood pressure recorded 142/62. Oxygen saturation on nasal cannula is 99%. HEENT: Normocephalic and atraumatic. NECK: No JVD. CARDIOVASCULAR: Systolic ejection murmur at the lower left sternal border. Questionable S3 gallop. LUNGS: Minimal/less basal crackles. Otherwise clear. EXTREMITIES: Less edema. No cyanosis. No clubbing. Calves are nontender to palpation. GASTROINTESTINAL: Abdomen is soft, nontender, and nondistended. Bowel sounds are positive. SKIN: No acute rash. NEUROLOGIC: Limited at the present time. IMPRESSION: 1. Acute mild congestive heart failure. 2. Mild bronchitis. 3. Chronic obstructive pulmonary disease. 4. Coronary artery disease. 5. Renal insufficiency. PLAN: The patient appears very comfortable this morning. She is not short of breath at rest. She does state she is feeling much better overall. On physical exam, her bronchospasm continues to resolve. In addition, the oxygen saturation on nasal cannula is now 99%. I will continue with the current nebulizer treatments and inhaled steroids for now. Input by Cardiology is noted. The patient remains on Lasix/afterload reduction. Clinical status of the patient is significantly improved overall. I will discuss the above with the attending physician. Natan Valle MD HÉCTOR
[2017-04-14 07:11] LABS: ALB/GLOB RATIO 1.4 (1.1-1.8); BILIRUBIN,TOTAL 0.6 mg/dL (0.2-1.3); CALCIUM 8.7 mg/dL (8.4-10.5); POTASSIUM 4.2 mmol/L (3.6-5.0); TOTAL PROTEIN 6.1 g/dL (5.8-8.3)
[2017-04-14 07:12] LABS: INR 3.33 (0.93-1.08)
[2017-04-14 07:21] LABS: HEMATOCRIT 35.8 % (36.0-48.0); MEAN CELL VOLUME 101.4 fl (80.0-105.0); MEAN CORPUSCULAR HEMOGLOBIN 34.8 pg (25.0-35.0); MEAN CORPUSCULAR HGB CONC 34.4 g/dl (31.0-37.0); MEAN PLATELET VOLUME 9.6 fl (7.0-11.0); RED CELL DISTRIBUTION WIDTH 12.8 % (11.5-14.5); WHITE BLOOD COUNT 5.4 10^3/ul (4.5-11.0)
[2017-04-14] MEDS: Budesonide 0.5 mg/2 ml Inhal Susp UD IH SCH ×2 (07:50→20:48)
[2017-04-14] MEDS: Insulin Lispro (humaLOG) MEDIUM Coverage SC SCH ×3 (08:54→17:39)
[2017-04-14] MEDS: cefTRIAXone 1 gm 1 GM/100 ML BAG IVPB SCH (09:08)
[2017-04-14] MEDS: diltiaZEM 180 mg/24 Hours CD Cap PO SCH (09:08)
[2017-04-14] MEDS: Potassium Chloride 20 mEq ER Tab PO SCH (09:09)
[2017-04-14] MEDS ORDERED: Tiotropium 18 mcg Cap For Inhalation INH SCH (10:00)
[2017-04-14] MEDS: Non Formulary Medication (Ranolazine [Ranexa] 500 MG) PO SCH (11:36)
[2017-04-14] MEDS: Digoxin 125 mcg (0.125 mg) Tab PO SCH (12:13)
[2017-04-14 12:18] VITALS: PULSE 72
[2017-04-14 12:20] LABS: VENOUS BLOOD GAS BASE EXCESS 10.5 mmol/L (0.0-2.0); VENOUS BLOOD PH 7.34 (7.32-7.43)
[2017-04-14 14:53] VITALS: BP 121/72
--- NOTE | 2017-04-14 15:36 | CP.PCM.DIS ---
Addendum entered and electronically signed by Janay Caba DO 04/14/17 15:37: Please disregard this note. Signed in error. Original Note: <Janay Caba - Last Filed: 04/14/17 15:35> Provider - Provider Date of Admission: 04/09/17 18:33 Attending physician: Maddison Cotto MD Primary care physician: Jermaine Yee MD Time Spent in preparation of Discharge (in minutes): 60 Hospital Course - Lab Results Lab Results: Micro Results 04/09/17 19:15 Urine,Clean Catch Urine Culture - Final Klebsiella Pneumoniae Ssp Pneu Most Recent Lab Values WBC 5.4 10^3/ul (4.5-11.0) 04/14/17 06:47 RBC 3.53 10^6/uL (3.5-6.1) 04/14/17 06:47 Hgb 12.3 g/dL (12.0-16.0) 04/14/17 06:47 Hct 35.8 % (36.0-48.0) L 04/14/17 06:47 MCV 101.4 fl (80.0-105.0) 04/14/17 06:47 MCH 34.8 pg (25.0-35.0) 04/14/17 06:47 MCHC 34.4 g/dl (31.0-37.0) 04/14/17 06:47 RDW 12.8 % (11.5-14.5) 04/14/17 06:47 Plt Count 132 10^3/uL (120.0-450.0) 04/14/17 06:47 MPV 9.6 fl (7.0-11.0) 04/14/17 06:47 Gran % 61.2 % (50.0-68.0) 04/09/17 16:20 Lymph % (Auto) 25.8 % (22.0-35.0) 04/09/17 16:20 [place] % (Auto) 8.8 % (1.0-6.0) H 04/09/17 16:20 Eos % (Auto) 3.4 % (1.5-5.0) 04/09/17 16:20 Baso % (Auto) 0.8 % (0.0-3.0) 04/09/17 16:20 Gran # 3.97 (1.4-6.5) 04/09/17 16:20 Lymph # 1.7 (1.2-3.4) 04/09/17 16:20 [place] # 0.6 (0.1-0.6) 04/09/17 16:20 Eos # 0.2 (0.0-0.7) 04/09/17 16:20 Baso # 0.05 K/mm3 (0.0-2.0) 04/09/17 16:20 PT 36.0 Seconds (9.9-11.8) H* 04/14/17 06:47 INR 3.33 (0.93-1.08) H 04/14/17 06:47 APTT 32.7 Seconds (23.7-30.8) H 04/09/17 19:23 pO2 75 mm/Hg (30-55) H 04/14/17 12:00 VBG pH 7.34 (7.32-7.43) 04/14/17 12:00 VBG pCO2 73.0 (40-60) H* 04/14/17 12:00 VBG HCO3 39.4 mmol/l (21-28) H 04/14/17 12:00 VBG O2 Sat (Calc) 97.2 % (40-65) H 04/14/17 12:00 VBG Base Excess 10.5 mmol/L (0.0-2.0) H 04/14/17 12:00 Sodium 142 mmol/L (132-148) 04/14/17 06:47 Potassium 4.2 mmol/L (3.6-5.0) 04/14/17 06:47 Chloride 96 mmol/L (95-110) 04/14/17 06:47 Carbon Dioxide 40 mmol/L (21-33) H D 04/14/17 06:47 Anion Gap 10 (10-20) 04/14/17 06:47 BUN 34 mg/dL (7-21) H 04/14/17 06:47 Creatinine 1.3 mg/dL (0.5-1.4) 04/14/17 06:47 Est GFR ( Amer) 50 04/14/17 06:47 Est GFR (Non-Af Amer) 41 04/14/17 06:47 POC Glucose (mg/dL) 318 mg/dL (65-110) H 04/14/17 11:29 Random Glucose 226 mg/dL (70-110) H 04/14/17 06:47 Hemoglobin A1c 6.1 % (4.2-6.5) 04/10/17 08:30 Calcium 8.7 mg/dL (8.4-10.5) 04/14/17 06:47 Phosphorus 3.3 mg/dL (2.5-4.5) 04/13/17 06:40 Magnesium 2.0 mg/dL (1.7-2.2) 04/13/17 06:40 Total Bilirubin 0.6 mg/dL (0.2-1.3) 04/14/17 06:47 AST 34 U/L (14-36) 04/14/17 06:47 ALT 54 U/L (7-56) 04/14/17 06:47 Alkaline Phosphatase 56 U/L (38-126) 04/14/17 06:47 Lactate Dehydrogenase 498 U/L (333-699) 04/09/17 16:20 Total Creatine Kinase 70 U/L (35-230) 04/09/17 16:20 Troponin I < 0.01 ng/mL 04/09/17 16:20 NT-Pro-B Natriuret Pep 1610 pg/mL (0-450) H 04/09/17 16:20 Total Protein 6.1 g/dL (5.8-8.3) 04/14/17 06:47 Albumin 3.5 g/dL (3.0-4.8) 04/14/17 06:47 Globulin 2.6 gm/dL 04/14/17 06:47 Albumin/Globulin Ratio 1.4 (1.1-1.8) 04/14/17 06:47 Urine Color Yellow (YELLOW) 04/10/17 12:22 Urine Appearance Sl cloudy (CLEAR) 04/10/17 12:22 Urine pH 6.0 (4.7-8.0) 04/10/17 12:22 Ur Specific [place] 1.010 (1.005-1.035) 04/10/17 12:22 Urine Protein Negative mg/dL (<30 mg/dL) 04/10/17 12:22 Urine Glucose (UA) Negative mg/dL (NEGATIVE) 04/10/17 12:22 Urine Ketones Negative mg/dL (NEGATIVE) 04/10/17 12:22 Urine Blood Trace-intact (NEGATIVE) H 04/10/17 12:22 Urine Nitrate Negative (NEGATIVE) 04/10/17 12:22 Urine Bilirubin Negative (NEGATIVE) 04/10/17 12:22 Urine Urobilinogen 0.2 E.U./dL (<1 E.U./dL) 04/10/17 12:22 Ur Leukocyte Esterase [place]/uL (NEGATIVE) H 04/10/17 12:22 Urine RBC 1 - 3 /hpf (0-2) 04/10/17 12:22 Urine WBC 5 - 10 /hpf (0-6) 04/10/17 12:22 Ur Epithelial Cells 3 - 4 /hpf (0-5) 04/10/17 12:22 Amorphous Sediment Few 04/09/17 19:23 Urine Bacteria Many (NEG) 04/10/17 12:22 Fine Granular Casts 0 - 2 /hpf (0-2) 04/09/17 19:23 Urine Other [place] 04/10/17 12:22 Ur Random Creatinine 57 mg/dL 04/10/17 12:00 U Random Total Protein 137 mg/g creat (21-161) 04/10/17 12:22 Ur Random Sodium 60 meq/L 04/10/17 12:00 Ur Random Urea Nitrogn 513 mg/dL 04/10/17 12:00 Urine Microalbumin 17.7 mg/L (0.0-16.6) H 04/10/17 12:22 Digoxin 1.4 ng/mL (0.8-2.0) 04/09/17 16:20 Discharge Exam - Head Exam Head Exam: ATRAUMATIC, NORMOCEPHALIC - Eye Exam Eye Exam: EOMI, Normal appearance - ENT Exam ENT Exam: Mucous Membranes Moist - Respiratory Exam Respiratory Exam: Clear to PA & Lateral. absent: Rhonchi - Cardiovascular Exam Cardiovascular Exam: +S1, +S2. absent: Diastolic murmur, Systolic Murmur - GI/Abdominal Exam GI & Abdominal Exam: Soft, Unremarkable. absent: Tenderness - Extremities Exam Additional comments: improved edema, erythema, and tenderness - Neurological Exam Neurological exam: Alert, Oriented x3 - Psychiatric Exam Psychiatric exam: Anxious - Skin Skin Exam: Dry, Intact, Normal Color, Warm Discharge Plan - Discharge Medications Prescriptions: Cephalexin [cephalexin] 500 mg PO Q12H #6 cap Insulin Detemir [Levemir] 24 unit SC HS 7 Days Nitroglycerin [Nitrostat] 0.4 mg SL TID #15 tab Potassium Chloride 20 meq PO DAILY 30 Days Potassium Chloride [Klor-Con M20] 20 meq PO DAILY #30 - Follow Up Plan Condition: STABLE Disposition: HOME/ ROUTINE Instructions: Heart Failure (DC), COPD (Chronic Obstructive Pulmonary Disease) (DC), Chronic Hypertension (DC) Additional Instructions: Please follow up with your primary physician within 1 week. Skip your weekend coumadin doses and restart on Sunday. Have your INR levels checked when you go to the doctor on Sunday. Take Tramadol for pain as needed. The dose you have is a low dose Take Keflex for 3 days. Please return to the E.R if your symptoms exacerbate. Please remember to do the following: -Check daily weights -No more than 2 grams of sodium daily -Please don't exceed 1800mL diet. -Activity as tolerated Referrals: Jermaine Yee MD [Primary Care Provider] - <Maddison Cotto - Last Filed: 04/15/17 06:46> Provider - Provider Date of Admission: 04/09/17 18:33 Attending physician: Maddison Cotto MD Primary care physician: Jermaine Yee MD Hospital Course - Lab Results Lab Results: Micro Results 04/09/17 19:15 Urine,Clean Catch Urine Culture - Final Klebsiella Pneumoniae Ssp Pneu Most Recent Lab Values WBC 5.4 10^3/ul (4.5-11.0) 04/14/17 06:47 RBC 3.53 10^6/uL (3.5-6.1) 04/14/17 06:47 Hgb 12.3 g/dL (12.0-16.0) 04/14/17 06:47 Hct 35.8 % (36.0-48.0) L 04/14/17 06:47 MCV 101.4 fl (80.0-105.0) 04/14/17 06:47 MCH 34.8 pg (25.0-35.0) 04/14/17 06:47 MCHC 34.4 g/dl (31.0-37.0) 04/14/17 06:47 RDW 12.8 % (11.5-14.5) 04/14/17 06:47 Plt Count 132 10^3/uL (120.0-450.0) 04/14/17 06:47 MPV 9.6 fl (7.0-11.0) 04/14/17 06:47 Gran % 61.2 % (50.0-68.0) 04/09/17 16:20 Lymph % (Auto) 25.8 % (22.0-35.0) 04/09/17 16:20 [place] % (Auto) 8.8 % (1.0-6.0) H 04/09/17 16:20 Eos % (Auto) 3.4 % (1.5-5.0) 04/09/17 16:20 Baso % (Auto) 0.8 % (0.0-3.0) 04/09/17 16:20 Gran # 3.97 (1.4-6.5) 04/09/17 16:20 Lymph # 1.7 (1.2-3.4) 04/09/17 16:20 [place] # 0.6 (0.1-0.6) 04/09/17 16:20 Eos # 0.2 (0.0-0.7) 04/09/17 16:20 Baso # 0.05 K/mm3 (0.0-2.0) 04/09/17 16:20 PT 36.0 Seconds (9.9-11.8) H* 04/14/17 06:47 INR 3.33 (0.93-1.08) H 04/14/17 06:47 APTT 32.7 Seconds (23.7-30.8) H 04/09/17 19:23 pO2 75 mm/Hg (30-55) H 04/14/17 12:00 VBG pH 7.34 (7.32-7.43) 04/14/17 12:00 VBG pCO2 73.0 (40-60) H* 04/14/17 12:00 VBG HCO3 39.4 mmol/l (21-28) H 04/14/17 12:00 VBG O2 Sat (Calc) 97.2 % (40-65) H 04/14/17 12:00 VBG Base Excess 10.5 mmol/L (0.0-2.0) H 04/14/17 12:00 Sodium 142 mmol/L (132-148) 04/14/17 06:47 Potassium 4.2 mmol/L (3.6-5.0) 04/14/17 06:47 Chloride 96 mmol/L (95-110) 04/14/17 06:47 Carbon Dioxide 40 mmol/L (21-33) H D 04/14/17 06:47 Anion Gap 10 (10-20) 04/14/17 06:47 BUN 34 mg/dL (7-21) H 04/14/17 06:47 Creatinine 1.3 mg/dL (0.5-1.4) 04/14/17 06:47 Est GFR ( Amer) 50 04/14/17 06:47 Est GFR (Non-Af Amer) 41 04/14/17 06:47 POC Glucose (mg/dL) 249 mg/dL (65-110) H 04/14/17 16:19 Random Glucose 226 mg/dL (70-110) H 04/14/17 06:47 Hemoglobin A1c 6.1 % (4.2-6.5) 04/10/17 08:30 Calcium 8.7 mg/dL (8.4-10.5) 04/14/17 06:47 Phosphorus 3.3 mg/dL (2.5-4.5) 04/13/17 06:40 Magnesium 2.0 mg/dL (1.7-2.2) 04/13/17 06:40 Total Bilirubin 0.6 mg/dL (0.2-1.3) 04/14/17 06:47 AST 34 U/L (14-36) 04/14/17 06:47 ALT 54 U/L (7-56) 04/14/17 06:47 Alkaline Phosphatase 56 U/L (38-126) 04/14/17 06:47 Lactate Dehydrogenase 498 U/L (333-699) 04/09/17 16:20 Total Creatine Kinase 70 U/L (35-230) 04/09/17 16:20 Troponin I < 0.01 ng/mL 04/09/17 16:20 NT-Pro-B Natriuret Pep 1610 pg/mL (0-450) H 04/09/17 16:20 Total Protein 6.1 g/dL (5.8-8.3) 04/14/17 06:47 Albumin 3.5 g/dL (3.0-4.8) 04/14/17 06:47 Globulin 2.6 gm/dL 04/14/17 06:47 Albumin/Globulin Ratio 1.4 (1.1-1.8) 04/14/17 06:47 Urine Color Yellow (YELLOW) 04/10/17 12:22 Urine Appearance Sl cloudy (CLEAR) 04/10/17 12:22 Urine pH 6.0 (4.7-8.0) 04/10/17 12:22 Ur Specific [place] 1.010 (1.005-1.035) 04/10/17 12:22 Urine Protein Negative mg/dL (<30 mg/dL) 04/10/17 12:22 Urine Glucose (UA) Negative mg/dL (NEGATIVE) 04/10/17 12:22 Urine Ketones Negative mg/dL (NEGATIVE) 04/10/17 12:22 Urine Blood Trace-intact (NEGATIVE) H 04/10/17 12:22 Urine Nitrate Negative (NEGATIVE) 04/10/17 12:22 Urine Bilirubin Negative (NEGATIVE) 04/10/17 12:22 Urine Urobilinogen 0.2 E.U./dL (<1 E.U./dL) 04/10/17 12:22 Ur Leukocyte Esterase [place]/uL (NEGATIVE) H 04/10/17 12:22 Urine RBC 1 - 3 /hpf (0-2) 04/10/17 12:22 Urine WBC 5 - 10 /hpf (0-6) 04/10/17 12:22 Ur Epithelial Cells 3 - 4 /hpf (0-5) 04/10/17 12:22 Amorphous Sediment Few 04/09/17 19:23 Urine Bacteria Many (NEG) 04/10/17 12:22 Fine Granular Casts 0 - 2 /hpf (0-2) 04/09/17 19:23 Urine Other [place] 04/10/17 12:22 Ur Random Creatinine 57 mg/dL 04/10/17 12:00 U Random Total Protein 137 mg/g creat (21-161) 04/10/17 12:22 Ur Random Sodium 60 meq/L 04/10/17 12:00 Ur Random Urea Nitrogn 513 mg/dL 04/10/17 12:00 Urine Microalbumin 17.7 mg/L (0.0-16.6) H 04/10/17 12:22 Digoxin 1.4 ng/mL (0.8-2.0) 04/09/17 16:20 Attending/Attestation - Attestation I have personally seen and examined this patient.: Yes I have fully participated in the care of the patient.: Yes I have reviewed all pertinent clinical information, including history, physical exam and plan: Yes Notes (Text): 04/14/17 66 year old female with past medical history of systolic CHF, COPD, diabetes and hypertension who presented with acute CHF exacerbation. She was seen by cardiology and started on iv milrinone and iv lasix. Her symptoms improved and her milrinone drip was discontinued. She was also seen by pulmonary for COPD. She was on antibiotics for UTI and LE cellulitis. She was being followed by nephrology for DELMY which improved. Patient today states she is feeling better. She is discharged home to follow up pmd, cardiology and pulmonary. Maddison Cotto MD Hospitalist.
--- NOTE | 2017-04-14 15:49 | PN ---
DATE: NEPHROLOGY FOLLOWUP NOTE SUBJECTIVE: A 66-year-old female with past medical history of hypertension, diabetes, COPD on home O2, CAD, status post CABG and CHF with systolic dysfunction admitted with CHF plus COPD exacerbation. The patient off milrinone drip since yesterday, reports breathing is stable, still with leg pain. PHYSICAL EXAMINATION: GENERAL: No distress, communicating coherently in full sentences. VITAL SIGNS: This morning; blood pressure 117/53, heart rate 74, respirations 22, temperature 98.9, O2 sat 99% on 2 L O2 via nasal cannula. Weight today standing 233 pounds decreased from 235 pound 2 days ago. HEENT: Moist mucous membranes. Nonicteric. RESPIRATORY: Decreased air movement, but clear to auscultation bilaterally. No rales, no rhonchi, no wheezes. HEART: Irregular rate. S1 and S2 normal. No gallops. GASTROINTESTINAL: Abdomen soft, nontender, nondistended. EXTREMITIES: Mild bilateral lower leg edema with mild erythema. SKIN: Warm. No cyanosis. PSYCHIATRIC: Normal mood, normal effect. LABORATORY DATA: This morning, CBC; WBC 5.4, hemoglobin 12.3, hematocrit 35.8, platelets 132. Chemistry panel; sodium 142, potassium 4.2, chloride 96, bicarb 40, BUN 34, creatinine 1.3, glucose 226, calcium 8.7, albumin 3.5. ASSESSMENT AND PLAN: 1. Acute decompensated systolic congestive heart failure. The patient off milrinone, for approximately 24 hours has been stable. Renal function relatively stable. Breathing appears to be at baseline. Agree with Lasix p.o. 40 mg b.i.d. The patient needs to weigh herself daily and take extra Lasix dose if weight starts increasing. 2. Acute renal failure. Prerenal etiology in the setting of aggressive diuresis and congestive heart failure. Renal function overall improved. Okay to start titrating upward OSCAR inhibitor to optimize cardiac status, may need to add Aldactone as well. Should monitor potassium level as patient while doing so. 3. Hypertension. Currently, normotensive on Imdur, diltiazem and Lasix, restarting low-dose lisinopril, Coreg has been on hold. Should consider restarting low-dose Coreg to optimize cardiac status. 4. Urinary tract infection. The patient has been on ceftriaxone, no renal dose adjustment needed. Urine culture growing Klebsiella pneumonia sensitive to Cipro, can change to Cipro without needing dose reduction for renal insufficiency at this point. 5. Metabolic alkalosis. Patient needs to have blood gas done (at least venous gas) to see if this alkalosis represents compensation due to hypercapnia or is due to contraction alkalosis from diuretics (if later patient would benefit from spironolactone with careful monitoring of potassium) should obtain before discharge today. Paul Grant MD
--- NOTE | 2017-04-14 22:01 | PN ---
REASON FOR CONSULTATION: Follow up decompensated congestive heart failure, cardiac evaluation, history of CABG, history of renal insufficiency, COPD, active tobacco abuse and obesity. SUBJECTIVE: Feels better. Denies any chest pain, shortness of breath, or any palpitation. Complained of leg pain. Lot of questions. They have been answered. OBJECTIVE: GENERAL: Not in apparent distress, but a lot of questions regarding the medication which the patient went over twice. VITAL SIGNS: Temperature afebrile, heart rate is 74, blood pressure 101/53. HEENT: PERRLA. Extraocular muscles intact. NECK: Supple. No carotid bruits or thyromegaly. CHEST: Clear to auscultation. HEART: S1 and S2 regular. ABDOMEN: Soft. EXTREMITIES: Clubbing cyanosis negative. LABORATORY DATA: Blood workup as follows: WBC 5.0, hemoglobin 12.3, hematocrit 35.8, and platelet count 132. Chemistry shows sodium 142, potassium 4.2, chloride 96, carbon dioxide 40, anion gap of 10, BUN 32, and creatinine 1.3. IMPRESSION: A 66-year-old morbidly obese female with a body mass index of 40 kg/m2, active tobacco abuse, history of coronary artery disease status post coronary artery bypass in 10/18/2010 at [facility], chronic atrial fibrillation, failed transesophageal echocardiography cardioversion in the past, hypertension, hyperlipidemia, admitted with decompensated congestive heart failure. The patient was started on Primacor and now, the patient is off Primacor. While the patient was on Primacor, MUGA scan was done. It showed ejection fraction 60% while the patient was on Primacor. History of atrial fibrillation on anticoagulation. INR 3.33. RECOMMENDATION: Hold Coumadin today. Monitor electrolytes. Monitor renal function. The patient came in with creatinine 1.8, on the Primacor, off of this renal function improved to 1.3. Recommend hold Coumadin today, restart when INR is below 2. Continue Lasix p.o. Monitor electrolytes. Advised the patient, upon discharge, the patient needs to follow up with and Dr. Yee. Continue OSCAR inhibitors low dose if the blood pressure is tolerated. Continue Lasix 40 mg twice a day. Continue atorvastatin. Continue potassium 20 once a day. Continue aspirin. We will follow with you. Repeat the PT/INR tomorrow. Je Santana MD [facility] # [id number]
== END 2017-04-14 23:20 | disposition home or self-care (01) | DRG 682 ==
LOC: ED 15:28 → ERH 18:33 → 2RSO 21:34
PROVIDERS: ADMIT Internal Medicine; ATTEND Internal Medicine
DX: N17.9 Acute kidney failure, unspecified (principal); I50.23 Acute on chronic systolic (congestive) heart failure; E87.3 Alkalosis; I25.82 Chronic total occlusion of coronary artery; Z68.41 Body mass index [BMI] 40.0-44.9, adult; Z99.81 Dependence on supplemental oxygen; E66.01 Morbid (severe) obesity due to excess calories; N39.0 Urinary tract infection, site not specified; L03.119 Cellulitis of unspecified part of limb; I08.1 Rheumatic disorders of both mitral and tricuspid valves; I48.0 Paroxysmal atrial fibrillation; I11.0 Hypertensive heart disease with heart failure; B96.1 Klebsiella pneumoniae [K. pneumoniae] as the cause of diseases classified elsewhere; E11.9 Type 2 diabetes mellitus without complications; E78.5 Hyperlipidemia, unspecified; F41.0 Panic disorder [episodic paroxysmal anxiety]; E78.00 Pure hypercholesterolemia, unspecified; I25.10 Atherosclerotic heart disease of native coronary artery without angina pectoris; I25.2 Old myocardial infarction; I25.5 Ischemic cardiomyopathy; I48.2 Chronic atrial fibrillation; I73.9 Peripheral vascular disease, unspecified; J44.9 Chronic obstructive pulmonary disease, unspecified; Z72.0 Tobacco use; Z79.01 Long term (current) use of anticoagulants; Z79.82 Long term (current) use of aspirin; Z79.899 Other long term (current) drug therapy; Z82.49 Family history of ischemic heart disease and other diseases of the circulatory system; Z91.14 Patient's other noncompliance with medication regimen; Z95.1 Presence of aortocoronary bypass graft; Z95.5 Presence of coronary angioplasty implant and graft; F32.89 Other specified depressive episodes; Z88.5 Allergy status to narcotic agent; R40.2412 Glasgow coma scale score 13-15, at arrival to emergency department